=== PATIENT | female | born 1985 | race Caucasian/White ===

== ENCOUNTER 2017-06-01 15:51 | Emergency (ER) | payer MEDICAID, SELFPAY ==
[2017-06-01 16:00] VITALS: BP 141/74; PULSE 108; RESP 20; TEMP 36.8; O2SAT 100; BMI 19.7
[2017-06-01 16:05] VITALS: O2SAT 100
--- NOTE | 2017-06-01 16:15 | EKG12_ITS ---
Test Reason : SOB Blood Pressure : / mmHG Vent. Rate : 098 BPM Atrial Rate : 098 BPM P-R Int : 124 ms QRS Dur : 080 ms QT Int : 350 ms P-R-T Axes : 063 075 046 degrees QTc Int : 446 ms Normal sinus rhythm with sinus arrhythmia Nonspecific ST abnormality Abnormal ECG Confirmed by CHEO VARGAS ([id number]), art editor GEENA MCDONALD ([id number]) on 06/06/2017 2:44:45 PM Referred By: BECKA Confirmed By:CHEO VARGAS
--- NOTE | 2017-06-01 16:15 | RAD_ITS ---
STUDY: X-RAY CHEST REASON FOR EXAM: Female, 32 years old. SHORT OF BREATH TECHNIQUE: Single AP portable view of the chest. COMPARISON: None. FINDINGS: The lungs are clear and expanded. There is no demonstrated pleural abnormality. Normal size heart. Normal mediastinum and chinyere. Normal visualized pulmonary arteries. Normal visualized aortic arch and descending thoracic aorta. Normal visualized thoracic spine. Normal visualized ribs, clavicles, and shoulders. There is no demonstrated abnormality of the visualized soft tissue structures of the upper abdomen. RAD/Chest 1 View (Portable) IMPRESSION: Normal x-ray examination of the chest. Electronically Signed: Neil Maki MD at 16:37 EDT , Service support ,
[2017-06-01 16:18] VITALS: O2SAT 100
[2017-06-01] MEDS: LORazepam 2 MG/ML Syringe 0.5 MG IV (16:34)
[2017-06-01 16:41] LABS: International Normalized Ratio 1.2; Prothrombin Time (Protime)PT. 15.2 SECONDS (11.7-14.9)
[2017-06-01 16:46] LABS: Absolute Lymphocyte Count 4.22 X10^3/ul (0.83-4.51); Anion Gap 7 (5-15); BUN 7 mg/dL (7-18); BUN/Creat Ratio 8.5 RATIO (10-20); Basophil# 0.04 X10^3/uL; Basophil% 0.4 % (0-1); Calcium,Total 8.5 mg/dL (8.5-10.1); Chloride 109 mmol/L (98-107); Creatinine, Serum 0.82 mg/dL (0.55-1.02); EST Glomerular Filtration Rate 85 mL/min (>60); Eosinophil# 0.18 X10^3/uL; Eosinophils% 1.8 % (0-5); Est Glom Filt Rate - Afr Amer 103 mL/min (>60); Estimated Creatinine Clearance 75.47 ml/min; Glucose 132 mg/dL (74-106); Hematocrit 36.9 % (37-47); Hemoglobin 12.3 g/dl (12.0-15.0); Lymphocyte # 4.22 X10^3/ul (4.0); Lymphocyte % 42.3 % (19-41); Mean Corp Hgb Conc 33.3 g/gl (32-36); Mean Corpuscular Hgb 29.4 pg (27.0-32.0); Mean Corpuscular Volume 88.1 fL (81-99); Mean Platelet Vol. 12.6 fl (6.2-12.0); Monocyte# 0.49 X10^3/uL; Monocyte% 4.9 % (0-10); Neutrophil # 5.04 X10^3/uL (2.7-7.7); Neutrophil % 50.5 % (47-70); Platelet Count 180 K/mm3 (150-450); Potassium 3.3 mmol/L (3.5-5.1); Red Blood Count 4.19 M/mm3 (4.2-5.4); Sodium Level 138 mmol/L (136-145)
[2017-06-01 16:49] LABS: D-Dimer Quantitative (DVT/PE) 0.77 FEU/ug/m (0.27-0.49)
[2017-06-01 16:49] LABS: POSITIVE COUNT NO; POSITIVE DIFFERENTIAL NO; POSITIVE MORPHOLOGY NO
--- NOTE | 2017-06-01 16:50 | ED.RN ---
notified Dr. Teixeira of d-dimer 0.77
--- NOTE | 2017-06-01 17:10 | CT_ITS ---
STUDY: CTA CHEST REASON FOR EXAM: Female, 32 years old. HEMOPTYSIS, SOB, ELEVATED D-DIMER RADIATION DOSAGE (If Supplied By Facility): CTDIvol = ( 3.86 ) mGy, DLP = ( 163.32 ) mGycm TECHNIQUE: The examination was performed with the intravenous administration of 75 ml of Isovue 370 contrast material. Post-processing of the angiographic images was performed, with multiplanar reformation and 3D reconstruction. Individualized dose optimization techniques were used for this CT. COMPARISON: None. FINDINGS: Normal enhancement of the main pulmonary artery and right and left pulmonary arteries. Normal enhancement of the bilateral peripheral pulmonary arteries. There is no demonstrated pulmonary embolism. Normal thoracic aorta and visualized great vessels. There is no demonstrated aortic dissection. Normal heart and pericardium. Normal mediastinum. Normal hilar regions. Normal visualized trachea and bronchi. The lungs are well expanded. Normal pulmonary parenchyma. Normal pleura. Normal chest wall structures. Normal osseous structures. Normal visualized upper abdomen. CT/CTA Chest W/WO Contrast IMPRESSION: Normal CTA chest examination, without a demonstrated pulmonary embolism or arterial dissection. Electronically Signed: Neil Maki MD at 17:55 EDT , Service support ,
--- NOTE | 2017-06-01 17:19 | ED.DCSUM_ITS ---
- ER Visit Summary Date of Service: 06/01/17 Chief Complaint: Shortness of breath and coughing up blood History of Present Illness: The patient is a 32 F history of intermittent tachycardia and right-sided cerebral palsy. Patient never had a DVT or PE. She is currently on a generic control pill. Denies any recent travel, surgery, immobilization or hospitalization. Denies any leg pain or swelling. Denies any chest pain and no pleuritic chest pain. Says she was cutting grass started getting short of breath and started coughing up blood. She denies fever. Patient states prior to this occurring while cutting the grass she was feeling fine. No prior history of any like this before. Physical Examination: Well-appearing young female. Vital signs are stable. Her pulse ox is 100% on room air no signs of hypoxia. She is mildly tachycardic 108. She does not look septic or toxic. H EENT exam unremarkable. Neck nontender no lymphadenopathy trachea midline. Lungs clear to auscultation bilaterally. Heart tachycardic rate approximately 118 no murmur. Chest wall nontender. Abdomen soft nontender. Normal bowel sounds no peritoneal signs. She is moving all 4 extremity's. Neurovascular intact. Calves are nontender without edema or cords. Back exam normal. Skin exam normal. No petechiae, purpura or bruising. No rashes. Neurologically she is awake alert with no focal motor deficits. She is anxious. Test Results: EKG shows a sinus rhythm rate of 98 with no acute signs of IN or ischemia. No S1 every 3 T3. No signs of ischemia or dysrhythmia. CBC normal. White count of 10. Hemoglobin 12. Electrolytes showed mild hypokalemia at 3.3. Otherwise unremarkable with a normal creatinine and gap. PT/INR normal. D-dimer slightly elevated at 0.77. Chest x-ray read as normal both by myself the radiologist. Due to the patient's complaint of shortness of breath and hemoptysis and elevated d-dimer a CT of the chest to be obtained. CT of the chest shows no acute abnormality. Read by the radiologist reviewed by me. No signs of clot or dissection. Emergency Department Course and Treatment: Multiple repeat exams patient is doing well at 1900. Long discussion with her and her family. She will be discharged to home. Treatment Plan: Return if feeling worse. Disposition: Discharge Impression: Hemoptysis of uncertain etiology Anxiety This note was generated with [employer] dictation software. It may contain incorrect words, spelling, and punctuation that were not noted in review of the chart prior to signing ED Disposition - Plan for ED Patient: Chief Complaint: Shortness of Breath Referrals: Yoandy Porras MD [Primary Care Provider] -
[2017-06-01 18:41] VITALS: PULSE 94; RESP 18; O2SAT 99
--- NOTE | 2017-06-01 19:00 | ED.DEP ---
ED Disposition - Plan for ED Patient: Disposition: Home or Assisted Living Chief Complaint: Shortness of Breath Instructions: ED Dyspnea Shortness of Breath Referrals: Yoandy Porras MD [Primary Care Provider] - 3-5 Days if not improving Additional Instructions: All your tests tonight were normal. Your CAT scan looked good. There is no signs of blood clot or any other abnormality that would cause her to cough up blood. Normal On follow-up your primary care physician if not feeling better.
[2017-06-01 19:09] VITALS: BP 127/80; PULSE 96; RESP 18; O2SAT 100
== END 2017-06-01 19:18 | disposition home or self-care (01) ==
PROVIDERS: Emergency Provider Emergency Medicine; Family Provider Family Medicine; PCP Family Medicine
DX: R04.2 Hemoptysis (principal); F41.9 Anxiety disorder, unspecified; E87.6 Hypokalemia; R79.89 Other specified abnormal findings of blood chemistry; G80.8 Other cerebral palsy; Z79.3 Long term (current) use of hormonal contraceptives; Z79.899 Other long term (current) drug therapy
CPT/HCPCS: 71045; 71275; 80048; 85025; 85379; 85610; 93005; 96361; 96374; 99285; J7030; Q9967; A4216

== ENCOUNTER → 2017-07-20 17:41 | Outpatient (CLI) | payer MEDICAID, SELFPAY ==
[2017-07-20 19:47] LABS: Chlamydia Trachomatis by PCR Negative (Negative); Neisserai gonorrhoeae by PCR Negative (Negative); Probe Check PASS; Sample Adequacy Control PASS; Specimen Processing Control PASS
== END ==
PROVIDERS: Visit Provider Nurse Practitioner Women's Health
DX: Z11.3 Encounter for screening for infections with a predominantly sexual mode of transmission (principal)
CPT/HCPCS: 87491; 87591

== ENCOUNTER → 2017-07-28 15:32 | Outpatient (CLI) | payer MEDICAID, SELFPAY ==
--- NOTE | 2017-07-28 15:34 | US_ITS ---
STUDY: ULTRASOUND OF THE FEMALE PELVIS - COMPLETE REASON FOR EXAM: Female, 32 years old. Pelvic pain. LMP: Unknown. TECHNIQUE: Transabdominal and Transvaginal. TECHNICAL QUALITY: Adequate. COMPARISON: None. FINDINGS: The uterus is retroflexed and is in a midline position. The uterus measures 6.6 x 5.5 x 3.5 cm. Normal uterine cervix. The endometrium measures 7 mm in thickness, and is hyperechoic. There is no demonstrated endometrial mass. There is no demonstrated myometrial mass. I.U.D. - The patient does not have an I.U.D. The right ovary is visualized. The right ovary measures 3.1 x 1.8 x 1.1 cm. There is 0.5 cm follicle. There is no visualized right adnexal mass or complex lesion. There is normal arterial and normal venous vascularity. The left ovary is visualized. The left ovary measures 3.5 x 2.2 x 2.1 cm. There is 1.0 cm follicle There is no visualized left adnexal mass or complex lesion. There is normal arterial and normal venous vascularity. There is mild fluid in the cul-de-sac. The pre void volume of the bladder was 443 ml. The post void volume of the bladder was 0 ml. US/Transvaginal Non- IMPRESSION: Normal female pelvis. Small follicles. Mild free fluid. Electronically Signed: Pankaj Fontana MD at 9:56 EDT , Service support ,
--- NOTE | 2017-07-28 15:34 | US_ITS ---
STUDY: ULTRASOUND OF THE FEMALE PELVIS - COMPLETE REASON FOR EXAM: Female, 32 years old. Pelvic pain. LMP: Unknown. TECHNIQUE: Transabdominal and Transvaginal. TECHNICAL QUALITY: Adequate. COMPARISON: None. FINDINGS: The uterus is retroflexed and is in a midline position. The uterus measures 6.6 x 5.5 x 3.5 cm. Normal uterine cervix. The endometrium measures 7 mm in thickness, and is hyperechoic. There is no demonstrated endometrial mass. There is no demonstrated myometrial mass. I.U.D. - The patient does not have an I.U.D. The right ovary is visualized. The right ovary measures 3.1 x 1.8 x 1.1 cm. There is 0.5 cm follicle. There is no visualized right adnexal mass or complex lesion. There is normal arterial and normal venous vascularity. The left ovary is visualized. The left ovary measures 3.5 x 2.2 x 2.1 cm. There is 1.0 cm follicle There is no visualized left adnexal mass or complex lesion. There is normal arterial and normal venous vascularity. There is mild fluid in the cul-de-sac. The pre void volume of the bladder was 443 ml. The post void volume of the bladder was 0 ml. US/Pelvic (Non ) IMPRESSION: Normal female pelvis. Small follicles. Mild free fluid. Electronically Signed: Pankaj Fontana MD at 9:56 EDT , Service support ,
== END ==
PROVIDERS: Family Provider Family Medicine; PCP Family Medicine; Visit Provider Nurse Practitioner Women's Health
DX: R10.2 Pelvic and perineal pain (principal)
CPT/HCPCS: 76830; 76856; 93976

== ENCOUNTER 2017-12-11 13:13 | Emergency (ER) | payer MEDICAID, SELFPAY ==
[2017-12-11] VITALS (7 sets, daily range): BP systolic 106–128; BP diastolic 63–84; PULSE 85–127; RESP 11–18; TEMP 36.6; O2SAT 98–100; BMI 20.5
--- NOTE | 2017-12-11 13:26 | EKG12_ITS ---
Test Reason : TACHY Blood Pressure : / mmHG Vent. Rate : 111 BPM Atrial Rate : 117 BPM P-R Int : 152 ms QRS Dur : 074 ms QT Int : 426 ms P-R-T Axes : 082 081 062 degrees QTc Int : 579 ms Sinus tachycardia Nonspecific ST and T wave abnormality Prolonged QT Abnormal ECG Confirmed by ANTHONY SIMPSON, JAKE ([id number]), deputy editor in chief GEENA MCDONALD ([id number]) on 12/14/2017 3:36:39 PM Referred By: LORELEI Confirmed By:JAKE CRUZ MD
--- NOTE | 2017-12-11 13:35 | RAD_ITS ---
STUDY: X-RAY CHEST REASON FOR EXAM: Female, 32 years old. Tachycardia. TECHNIQUE: Single AP portable view of the chest. COMPARISON: Comparison is made with prior study dated June 01, 2017. FINDINGS: EKG electrodes are seen. Hyperinflation. The lungs are clear. There is no demonstrated pleural abnormality. Normal size heart. Normal mediastinum and chinyere. Normal visualized pulmonary arteries. Normal visualized aortic arch and descending thoracic aorta. Normal visualized thoracic spine. Normal visualized ribs, clavicles, and shoulders. There is no demonstrated abnormality of the visualized soft tissue structures of the upper abdomen. RAD/Chest 1 View (Portable) IMPRESSION: Hyperinflation. The lungs are clear. Electronically Signed: Miguel Angel Guerrero MD at 14:00 EST Tel [phone], Service support ,
[2017-12-11 14:11] LABS: Absolute Lymphocyte Count 3.52 X10^3/ul (0.83-4.51); Absolute Neutrophil Count 7.1 X10^3/uL (2.0-7.7); Basophil# 0.03 X10^3/uL; Basophil% 0.3 % (0-1); Eosinophil# 0.09 X10^3/uL; Eosinophils% 0.8 % (0-5); Hematocrit 39.8 % (37-47); Hemoglobin 13.3 g/dl (12.0-15.0); Lymphocyte # 3.52 X10^3/ul (4.0); Lymphocyte % 30.9 % (19-41); Mean Corp Hgb Conc 33.4 g/gl (32-36); Mean Corpuscular Hgb 28.9 pg (27.0-32.0); Mean Corpuscular Volume 86.3 fL (81-99); Mean Platelet Vol. 12.4 fl (6.2-12.0); Monocyte# 0.61 X10^3/uL; Monocyte% 5.4 % (0-10); Neutrophil # 7.13 X10^3/uL (2.7-7.7); Neutrophil % 62.5 % (47-70); POSITIVE COUNT NO; POSITIVE DIFFERENTIAL NO; POSITIVE MORPHOLOGY NO; Platelet Count 256 K/mm3 (150-450); RBC Distribution Width CV 12.9 % (11.6-14.6); RBC Distribution Width SD 40.2 fl (35.1-43.9); Red Blood Count 4.61 M/mm3 (4.2-5.4); White Blood Count 11.4 K/mm3 (4.4-11.0)
[2017-12-11 14:16] LABS: D-Dimer Quantitative (DVT/PE) 0.43 FEU/ug/m (0.27-0.49)
[2017-12-11 14:17] LABS: Anion Gap 9 (5-15); BUN 8 mg/dL (7-18); BUN/Creat Ratio 9.2 RATIO (10-20); Chloride 111 mmol/L (98-107); Creatinine, Serum 0.87 mg/dL (0.55-1.02); EST Glomerular Filtration Rate 80 mL/min (>60); Est Glom Filt Rate - Afr Amer 97 mL/min (>60); Estimated Creatinine Clearance 72.74 ml/min; Glucose 106 mg/dL (74-106); Potassium 3.5 mmol/L (3.5-5.1); Sodium Level 141 mmol/L (136-145)
[2017-12-11 14:26] LABS: Thyroid Stim Hormone (TSH) 1.87 uIU/mL (0.358-3.74)
--- NOTE | 2017-12-11 16:03 | ED.VISSUMM ---
- ER Visit Summary Date of Service: 12/11/17 Chief Complaint: [Tachycardia] History of Present Illness: The patient is a 32 F [presents the emergency department complaint of tachycardia and symptoms that she has had for months but progressively worsening over the last 2 weeks. Patient was being seen at physical therapy today and they initially noted that her resting heart rate was a little over 100. Patient then started complaining of feeling like her heart was racing and they rechecked her heart rate and it was over 150. Patient was sent to the ER for evaluation. Patient states she has had episodes like this for quite some time and typically seems to be brought on with standing and walking where she feels like her heart is pounding. Patient at times will have pain into her neck and head. She has not had any syncopal episodes. Patient states that she has seen a neurologist for this and had a tilt table test that showed tachycardia but nothing else significant. Patient states she has had blood work including thyroid studies which have been normal. She denies recent travel or surgery. She denies family history of sudden cardiac .] Physical Examination: [HEENT-PERRLA, EOMI. Cranial nerves II through XII grossly intact. TMs clear. Mucous membranes moist. No adenopathy. Cardiovascular-regular and mildly tachycardic with a rate in the low 100s. No murmurs auscultated. No rubs or clicks noted. Lungs-clear to auscultation, chest wall stable without crepitus or subcu emphysema Abdomen-normoactive bowel sounds, soft, nontender, no rebound or rigidity, no peritoneal signs. Extremities-intact ?4, normal range of motion, normal pulses, atraumatic] Test Results: [Patient had an EKG on arrival that showed a sinus tachycardia with a ventricular rate of 111 bpm with some nonspecific ST changes and a slightly prolonged QT. CBC with differential obtained was unremarkable. Chemistries unremarkable. Troponin was less than 0.015. D-dimer was normal 0.43. TSH was normal 1.87. Magnesium was 2.0. Chest x-ray showed hyperinflation.] Emergency Department Course and Treatment: [I did discuss case with cardiology who asked the patient follow-up with her primary care physician. I spoke with Dr. Deras who was covering for Dr. Porras who asked that I start patient on metoprolol 25 mg once a day. They will follow-up with her in the office.] Treatment Plan: [Patient will be started on metoprolol and follow-up with primary care physician] Disposition: [Discharged home in stable condition] Impression: [Tachycardia Palpitations] This note was generated with [employer] dictation software. It may contain incorrect words, spelling, and punctuation that were not noted in review of the chart prior to signing ED Disposition - Plan for ED Patient: Chief Complaint: Palpitations Referrals: Yoandy Porras MD [Primary Care Provider] -
--- NOTE | 2017-12-11 16:07 | ED.DCSUM_ITS ---
- ER Visit Summary Date of Service: 12/11/17 Chief Complaint: [Tachycardia] History of Present Illness: The patient is a 32 F [presents the emergency department complaint of tachycardia and symptoms that she has had for months but progressively worsening over the last 2 weeks. Patient was being seen at [facility] today and they initially noted that her resting heart rate was a little over 100. Patient then started complaining of feeling like her heart was racing and they rechecked her heart rate and it was over 150. Patient was sent to the ER for evaluation. Patient states she has had episodes like this for quite some time and typically seems to be brought on with standing and walking where she feels like her heart is pounding. Patient at times will have pain into her neck and head. She has not had any syncopal episodes. Patient states that she has seen a neurologist for this and had a tilt table test that showed tachycardia but nothing else significant. Patient states she has had blood work including thyroid studies which have been normal. She denies recent travel or surgery. She denies family history of sudden cardiac .] Physical Examination: [HEENT-PERRLA, EOMI. Cranial nerves II through XII grossly intact. TMs clear. Mucous membranes moist. No adenopathy. Cardiovascular-regular and mildly tachycardic with a rate in the low 100s. No murmurs auscultated. No rubs or clicks noted. Lungs-clear to auscultation, chest wall stable without crepitus or subcu emphysema Abdomen-normoactive bowel sounds, soft, nontender, no rebound or rigidity, no peritoneal signs. Extremities-intact ?4, normal range of motion, normal pulses, atraumatic] Test Results: [Patient had an EKG on arrival that showed a sinus tachycardia with a ventricular rate of 111 bpm with some nonspecific ST changes and a slightly prolonged QT. CBC with differential obtained was unremarkable. Chemistries unremarkable. Troponin was less than 0.015. D-dimer was normal 0.43. TSH was normal 1.87. Magnesium was 2.0. Chest x-ray showed hyperi nflation.] Emergency Department Course and Treatment: [I did discuss case with cardiology who asked the patient follow-up with her primary care physician. I spoke with Dr. Deras who was covering for Dr. Porras who asked that I start patient on metoprolol 25 mg once a day. They will follow-up with her in the office.] Treatment Plan: [Patient will be started on metoprolol and follow-up with primary care physician] Disposition: [Discharged home in stable condition] Impression: [Tachycardia Palpitations] This note was generated with [employer] dictation software. It may contain incorrect words, spelling, and punctuation that were not noted in review of the chart prior to signing ED Disposition - Plan for ED Patient: Chief Complaint: Palpitations Referrals: Yoandy Porras MD [Primary Care Provider] -
--- NOTE | 2017-12-11 16:07 | ED.DEP ---
ED Disposition - Plan for ED Patient: Chief Complaint: Palpitations Instructions: ED Palpitations Prescriptions: Metoprolol Succinate 25 mg PO DAILY #30 tab.er.24h Referrals: Yoandy Porras MD [Primary Care Provider] - 5-7 Days
--- NOTE | 2017-12-11 16:28 | ED.DEP ---
ED Disposition - Plan for ED Patient: Chief Complaint: Palpitations Instructions: ED Palpitations Prescriptions: Metoprolol Succinate 25 mg PO DAILY #30 tab.er.24h Lorazepam [Ativan] 1 mg PO TID PRN #10 tab PRN Reason: Anxiety Referrals: Yoandy Porras MD [Primary Care Provider] - 5-7 Days
[2017-12-11] MEDS: Metoprolol(XL)Succ 25 MG Tablet PO (16:31)
== END 2017-12-11 16:34 | disposition home or self-care (01) ==
LOC: ED 14:08
PROVIDERS: Emergency Provider Emergency Medicine; Family Provider Family Medicine; PCP Family Medicine
DX: R00.0 Tachycardia, unspecified (principal); R00.2 Palpitations; R11.0 Nausea; R51 Headache; M19.90 Unspecified osteoarthritis, unspecified site; F41.9 Anxiety disorder, unspecified; Z79.899 Other long term (current) drug therapy
CPT/HCPCS: 71045; 80048; 83735; 84443; 84484; 85025; 85379; 93005; 99285; J7030; A4216

== ENCOUNTER → 2019-12-16 | Outpatient (CLI) | payer MEDICAID, SELFPAY ==
[2019-12-23 04:25] LABS: HPV APTIMA, High Risk Negative (Negative)
== END | disposition home or self-care (01) ==
LOC: LABSPEC 13:51
PROVIDERS: PCP Family Medicine; Referring Provider Nurse Practitioner Women's Health; Visit Provider Nurse Practitioner Women's Health
DX: Z12.4 Encounter for screening for malignant neoplasm of cervix (principal)
CPT/HCPCS: 87624; 88175; G0145

== ENCOUNTER → 2019-12-18 14:11 | Outpatient (CLI) | payer MEDICAID, SELFPAY ==
--- NOTE | 2019-12-18 14:13 | US_ITS ---
STUDY: ULTRASOUND OF THE FEMALE PELVIS - LIMITED REASON FOR EXAM: Female, 34 years old pelvic pain for 6 months worsening over last month. History of ovarian cysts. Nausea and vomiting. Belching. TECHNIQUE: Transabdominal and Transvaginal TECHNICAL QUALITY: Adequate. COMPARISON: 07/28/2017. FINDINGS: The uterus is retroverted and retroflexed and is in a midline position. The uterus measures 7.4 x 3.6 x 5.3 cm. Normal uterine cervix. The endometrium measures 5.4 mm in thickness, and is hyperechoic. There is no demonstrated endometrial mass. There is a 1.7 x 2.2 x 1.4 cm subserosal fibroid posterior fundal wall. The right ovary measures 3.9 x 2.4 x 1.4 cm. There are multiple follicles of the right ovary. There is a questionable hyperechoic nodule measuring 1.3 x 0.8 x 1.2 cm. There is no visualized right adnexal mass or complex lesion. There is normal arterial and normal venous vascularity. The left ovary measures 3.4 x 2.0 x 1.1 cm. There are multiple follicles of the left ovary without a dominant cyst. There is no visualized left adnexal mass or complex lesion. There is normal arterial and normal venous vascularity. Minimal fluid in posterior cul-de-sac. The urinary bladder has a prevoid volume of 366 mm and is grossly unremarkable US/Transvaginal Non- IMPRESSION: 1. Retroverted/retroflexed uterus. There is a small fibroid in the posterior uterine wall. 2. Question hyperechoic mass in the right ovary not previously seen. This may represent a hemorrhagic cyst or solid tumor.. Follow-up recommended. 3. Minimal free fluid in posterior cul-de-sac thought to be physiologic. Electronically Signed: Braulio Burgess DO at 18:24 EST Tel [phone], Service support ,
--- NOTE | 2019-12-18 14:13 | US_ITS ---
STUDY: ULTRASOUND OF THE FEMALE PELVIS - LIMITED REASON FOR EXAM: Female, 34 years old pelvic pain for 6 months worsening over last month. History of ovarian cysts. Nausea and vomiting. Belching. TECHNIQUE: Transabdominal and Transvaginal TECHNICAL QUALITY: Adequate. COMPARISON: 07/28/2017. FINDINGS: The uterus is retroverted and retroflexed and is in a midline position. The uterus measures 7.4 x 3.6 x 5.3 cm. Normal uterine cervix. The endometrium measures 5.4 mm in thickness, and is hyperechoic. There is no demonstrated endometrial mass. There is a 1.7 x 2.2 x 1.4 cm subserosal fibroid posterior fundal wall. The right ovary measures 3.9 x 2.4 x 1.4 cm. There are multiple follicles of the right ovary. There is a questionable hyperechoic nodule measuring 1.3 x 0.8 x 1.2 cm. There is no visualized right adnexal mass or complex lesion. There is normal arterial and normal venous vascularity. The left ovary measures 3.4 x 2.0 x 1.1 cm. There are multiple follicles of the left ovary without a dominant cyst. There is no visualized left adnexal mass or complex lesion. There is normal arterial and normal venous vascularity. Minimal fluid in posterior cul-de-sac. The urinary bladder has a prevoid volume of 366 mm and is grossly unremarkable US/Pelvic (Non ) IMPRESSION: 1. Retroverted/retroflexed uterus. There is a small fibroid in the posterior uterine wall. 2. Question hyperechoic mass in the right ovary not previously seen. This may represent a hemorrhagic cyst or solid tumor.. Follow-up recommended. 3. Minimal free fluid in posterior cul-de-sac thought to be physiologic. Electronically Signed: Braulio Burgess DO at 18:24 EST Tel [phone], Service support ,
== END ==
PROVIDERS: PCP Family Medicine; Referring Provider Nurse Practitioner Women's Health; Visit Provider Nurse Practitioner Women's Health
DX: N93.9 Abnormal uterine and vaginal bleeding, unspecified (principal); R10.2 Pelvic and perineal pain
CPT/HCPCS: 76830; 76856

== ENCOUNTER → 2020-01-10 13:55 | Outpatient (CLI) | payer MEDICAID, SELFPAY ==
--- NOTE | 2020-01-10 13:57 | US_ITS ---
STUDY: ULTRASOUND OF THE FEMALE PELVIS - LIMITED REASON FOR EXAM: Female, 34 years old PELVIC PAIN , F/U RTO TECHNIQUE: Transabdominal and Transvaginal TECHNICAL QUALITY: Adequate. COMPARISON: Comparison is made with prior sonogram dated 12/18/2019. FINDINGS: The uterus is retroflexed and is in a midline position. The uterus measures 7 x 4.6 x 3. cm. Normal uterine cervix. The endometrium measures 9.9 mm in thickness, and is hyperechoic. There is no demonstrated endometrial mass. Stable 2 cm x 2.1 cm x 1.6 cm fibroid in the posterior fundal wall. The right ovary measures 4.1 cm x 2.6 x 2 cm. There is a 2.4 cm x 1.9 cm x 2.2 cm complex cyst in the right ovary. There is no visualized right adnexal mass or complex lesion. There is normal arterial and normal venous vascularity. The left ovary measures 1.9 cm x 1.4 cm x 1.5 cm. There is no left ovarian cyst or ovarian mass. There is no visualized left adnexal mass or complex lesion. There is normal arterial and normal venous vascularity. There is no fluid in the cul-de-sac. US/Pelvic (Non ) IMPRESSION: Stable small posterior fundal fibroid. 2.4 cm x 1.9 cm x 2.2 cm complex cyst in the right orbit. This is increased slightly in size has compared to prior study. Electronically Signed: Miguel Angel Guerrero, at 15:39 EST , Service support ,
--- NOTE | 2020-01-10 13:57 | US_ITS ---
STUDY: ULTRASOUND OF THE FEMALE PELVIS - LIMITED REASON FOR EXAM: Female, 34 years old PELVIC PAIN , F/U RTO TECHNIQUE: Transabdominal and Transvaginal TECHNICAL QUALITY: Adequate. COMPARISON: Comparison is made with prior sonogram dated 12/18/2019. FINDINGS: The uterus is retroflexed and is in a midline position. The uterus measures 7 x 4.6 x 3. cm. Normal uterine cervix. The endometrium measures 9.9 mm in thickness, and is hyperechoic. There is no demonstrated endometrial mass. Stable 2 cm x 2.1 cm x 1.6 cm fibroid in the posterior fundal wall. The right ovary measures 4.1 cm x 2.6 x 2 cm. There is a 2.4 cm x 1.9 cm x 2.2 cm complex cyst in the right ovary. There is no visualized right adnexal mass or complex lesion. There is normal arterial and normal venous vascularity. The left ovary measures 1.9 cm x 1.4 cm x 1.5 cm. There is no left ovarian cyst or ovarian mass. There is no visualized left adnexal mass or complex lesion. There is normal arterial and normal venous vascularity. There is no fluid in the cul-de-sac. US/Transvaginal Non- IMPRESSION: Stable small posterior fundal fibroid. 2.4 cm x 1.9 cm x 2.2 cm complex cyst in the right orbit. This is increased slightly in size has compared to prior study. Electronically Signed: Miguel Angel Guerrero, at 15:39 EST , Service support ,
== END ==
PROVIDERS: PCP Family Medicine; Referring Provider Nurse Practitioner Women's Health; Visit Provider Nurse Practitioner Women's Health
DX: R10.2 Pelvic and perineal pain (principal)
CPT/HCPCS: 76830; 76856; 93976

== ENCOUNTER 2020-01-17 11:47 | Emergency (ER) | payer MEDICAID, SELFPAY ==
[2020-01-17 10:19] VITALS: BMI 19.6
[2020-01-17 11:47] VITALS: BP 132/70; PULSE 88; RESP 18; TEMP 36.9; O2SAT 100; BMI 19.3
--- NOTE | 2020-01-17 11:55 | US_ITS ---
STUDY: ULTRASOUND OF THE FEMALE PELVIS - COMPLETE REASON FOR EXAM: Female, 34 years old. RLQ PAIN OVARIAN CYST LMP: 12/06/2019. TECHNIQUE: Transvaginal TECHNICAL QUALITY: Adequate. COMPARISON: None. FINDINGS: The uterus is retroflexed and is tilted to the left side of the pelvis. The uterus measures 8 cm x 4.7 cm x 3.8 cm. Normal uterine cervix. The endometrium measures 9.8 mm in thickness, and is hyperechoic. There is no demonstrated endometrial mass. 2 uterine fibroids are seen. The larger measures 1.9 cm x 2.4 cm x 1.5 cm I.U.D. - The patient does not have an I.U.D. The right ovary is visualized. The right ovary measures 4 cm x 2.5 cm x 1.8 cm. There is a 1.9 cm x 1.4 cm x 1.4 cm complex cyst in the right ovary. There is no visualized right adnexal mass or complex lesion. There is normal arterial and normal venous vascularity. The left ovary is visualized. The left ovary measures 2.3 cm x 2.3 cm x 1.2 cm. There is no left ovarian cyst or ovarian mass. There is no visualized left adnexal mass or complex lesion. There is normal arterial and normal venous vascularity. There is no fluid in the cul-de-sac. US/Transvaginal Non- IMPRESSION: Fibroid uterus. 1.9 cm x 1.4 cm x 1.4 cm complex right ovarian cyst. Electronically Signed: Miguel Angel Guerrero, at 13:39 EST , Service support ,
--- NOTE | 2020-01-17 12:01 | ED.VIS.GEN ---
History of Present Illness Chief Complaint: Abd Pain Informant: Patient Narrative: Patient is a 34-year-old female with a history of IBS who presents to the emergency department after being sent in by her RADIOLOGIC ELECTRONIC SPECIALIST for right lower quadrant abdominal pain. She states that she has chronic issues with this but recently got worse over the past 6 weeks. She has a known cyst on the right side. They are planning to potentially do surgery if it is a cyst still causing her symptoms. They wanted her to have an ultrasound and CT scan if necessary. Patient currently rates her pain as a 7 out of 10. No known aggravating or relieving factors. She has been nauseous and vomiting occasionally with the pain. She states that she has lost weight over the past 6 weeks due to the nausea. No previous abdominal surgeries. She denies any change in her bowel movements. She has had some vaginal discharge and had a pelvic exam performed by her RADIOLOGIC ELECTRONIC SPECIALIST today. She denies any urinary symptoms. No fevers but has had chills. The pain does radiate to her right flank and also down her right leg. Past Medical History - Allergies and Home Meds Allergies/Adverse Reactions: Allergies amoxicillin [From Augmentin] Allergy (Verified 01/17/20 10:20) Hives clavulanic acid [From Augmentin] Allergy (Verified 01/17/20 10:20) Hives Primary Care Physician: Katheryn Feng MD [STAFF PHYSICIAN] - As soon as possible Yoandy Porras MD [Primary Care Provider] - Prior records reviewed: Yes Smoking Status: Never smoker Review of Systems All systems negative except as indicated General: Reports: Chills. Denies: Fever, Sweats Eyes: Denies: Visual changes - bilaterally, Diplopia ENT: Denies: Rhinorrhea, Sore throat Cardiovascular: Denies: Chest pain, Palpitations Respiratory: Denies: Dyspnea, Cough, Dyspnea on exertion Gastrointestinal: Reports: Abdominal pain, Nausea, Vomiting. Denies: Diarrhea, Melena, Hematochezia Genitourinary: Denies: Dysuria, Hematuria, Frequency Musculoskeletal: Reports: Back pain. Denies: Extremity Pain Skin: Denies: Rash, Wounds Neurological: Denies: Headache, Weakness, Numbness Physical Exam Vital Signs/Narrative: Vital Signs Temp Pulse Resp BP Pulse Ox 01/17/20 11:47 98.4 F 88 18 132/70 H 100 Inital Vital Signs reviewed: Yes General: Well nourished, Well developed, No Acute Distress Head: Normocephalic, Atraumatic Eyes: Perrl, EOMI ENT: Moist mucous membranes, No rhinorrhea Neck: Supple, Nontender Cardiovascular: Regular rate, Regular rhythm, No murmurs Respiratory: No distress, CTA bilaterally, Chest nontender Abdomen: Soft, Nondistended, Normal bowel sounds, Tender - Right lower quadrant, Psoas sign. Negative for: Guarding, Rebound tenderness Back: Nontender, Normal Inspection Extremities: Nontender, No edema Skin: Normal color, No rash Neurological: Alert, Oriented x3, Normal Strength, Normal Sensation Psychological: Normal affect, Normal Mood Diagnostic/Tx/Re-eval - Medical Decision Making Patient presents to the ED for right lower quadrant abdominal pain. This is an acute on chronic issue. She was sent in by her RADIOLOGIC ELECTRONIC SPECIALIST. Upon arrival to the ED vital signs within normal limits. She does not appear in acute distress. She does have tenderness in the right lower quadrant on exam. Will check basic lab work and perform ultrasound at the OBs request. Lab work did not reveal any significant acute abnormality. No leukocytosis. Urine does not show any evidence of infection. Ultrasound was significant for complex right ovarian cyst. She also has uterine fibroids. No evidence of torsion. I did call her RADIOLOGIC ELECTRONIC SPECIALIST. Despite these findings I still want to do a CT scan as they will likely perform surgery on her. CT scan was performed which did not reveal any evidence of appendicitis. Will recommend symptomatic treatment in the meantime. Warning signs and symptoms for which to return to the emergency department are reviewed. She understands and is agreeable this plan. She is discharged home in stable condition. All questions answered. ED Disposition - Plan for ED Patient: Disposition: Home or Assisted Living Diagnosis: Right ovarian cyst, Abdominal pain, Uterine fibroid Instructions: ED Ovarian Cyst Prescriptions: Naproxen [Naprosyn] 500 mg PO BID PRN #20 tab Transmission Status: Received by [facility] Referrals: Yoandy Porras MD [Primary Care Provider] - Katheryn Feng MD [STAFF PHYSICIAN] - As soon as possible
--- NOTE | 2020-01-17 12:14 | ED.RN ---
pt to u/s prior to medication
[2020-01-17 12:20] LABS: Bacteria 0 SEEN /hpf (None Seen); Mucous, Urine 0 SEEN /hpf (<or=2+); Red Blood Cells-Urine 0 SEEN /hpf (0-5); White Blood Cells 0 SEEN /hpf (0-5)
[2020-01-17 12:23] LABS: Absolute Lymphocyte Count 3.11 X10^3/uL (0.83-4.51); Absolute Neutrophil Count 6.4 X10^3/uL (2.0-7.7); Basophil# 0.05 X10^3/uL; Basophil% 0.5 % (0-1); Eosinophil# 0.09 X10^3/uL; Eosinophils% 0.9 % (0-5); Hematocrit 42.6 % (37-47); Hemoglobin 14.1 g/dL (12.0-15.0); Lymphocyte # 3.11 X10^3/ul (4.0); Lymphocyte % 30.2 % (19-41); Mean Corp Hgb Conc 33.1 g/dL (32-36); Mean Corpuscular Hgb 28.7 pg (27.0-32.0); Mean Corpuscular Volume 86.8 fL (81-99); Monocyte# 0.65 X10^3/uL; Monocyte% 6.3 % (0-10); NRBC Flagged by Analyzer 0 % (0-5); Neutrophil # 6.35 X10^3/uL (2.7-7.7); Neutrophil % 61.7 % (47-70); Platelet Count 239 K/mm3 (150-450); RBC Distribution Width CV 13.2 % (11.6-14.6); RBC Distribution Width SD 41.6 fl (35.1-43.9); Red Blood Count 4.91 M/mm3 (4.2-5.4); White Blood Count 10.3 K/mm3 (4.4-11.0)
[2020-01-17 12:26] LABS: Color, Urine Yellow (Yellow); Glucose, Dipstick Normal (Normal); Ketone-Dipstick 15 mg/dl (Negative); Leukocyte Esterase-Dipstick Negative /ul (Negative); Nitrite-Dipstick Negative (Negative); Occult Blood-Urine Negative /ul (Negative); Protein-Dipstick Negative (Negative); Urine Bilirubin Dipstick Negative (Negative); Urine Clarity Sl. Cloudy (Clear); Urine Urobilinogen Normal (Normal)
[2020-01-17 12:33] LABS: Squamous Epithelial Cells - UA 0-5 SEEN /hpf (5-10)
[2020-01-17 12:34] LABS: Internal QC Validated? YES +Cl - CLEAR BKGD; Pregnancy, Urine Negative Negative
[2020-01-17 12:42] LABS: ALB/GLOB Ratio 1.3 RATIO (0.9-2.4); AST(SGOT) 12 U/L (15-37); Alanine Aminotransfer ALT/SGPT 20 U/L (13-56); Albumin, Serum 4.4 g/dL (3.2-5.0); Alkaline Phosphatase 63 U/L (45-117); Anion Gap 6 (5-15); BUN 10 mg/dL (7-18); BUN/Creat Ratio 13.1 RATIO (10-20); Calcium,Total 9.1 mg/dL (8.5-10.1); Chloride 109 mmol/L (98-107); Creatinine, Serum 0.76 mg/dL (0.55-1.02); EST Glomerular Filtration Rate 91 mL/min (>60); Est Glom Filt Rate - Afr Amer 110 mL/min (>60); Estimated Creatinine Clearance 78.42 ml/min; Globulin 3.5 g/dL (2.2-4.2); Glucose 86 mg/dL (74-106); Lipase 73 U/L (73-393); Potassium 3.6 mmol/L (3.5-5.1); Protein, Total 7.9 g/dL (6.4-8.2); Sodium Level 139 mmol/L (136-145)
[2020-01-17] MEDS: Ondansetron 4 MG/2 ML Vial IV (13:01)
[2020-01-17] MEDS: Ketorolac 15 MG/ML Vial IV (13:02)
--- NOTE | 2020-01-17 13:57 | CT_ITS ---
STUDY: CT ABDOMEN AND PELVIS WITH CONTRAST REASON FOR EXAM: Female, 34 years old. RLQ pain, appy vs ovarian cyst. RADIATION DOSAGE (If Supplied By Facility): CTDIvol = ( 7.73 ) mGy, DLP = ( 253.88 ) mGycm TECHNIQUE: Transaxial images were obtained from the dome of the diaphragm to the symphysis pubis without oral contrast. IV 100mL Isovue-300 was administered. Sagittal and coronal images were reconstructed. Individualized dose optimization techniques were used for this CT. COMPARISON: None. FINDINGS: The visualized lung bases are unremarkable. The visualized portions of the heart are within normal limits. Normal liver. Normal gallbladder and extrahepatic biliary system. Normal spleen. Normal pancreas. Normal bilateral adrenal glands. Normal right kidney. Normal left kidney. There is a small hiatal hernia. Normal small intestine. Normal colon. The appendix is visualized and appears normal. Normal abdominal aorta. Normal inferior vena cava. Normal retroperitoneum. Normal urinary bladder. There is a 1.2 cm dominant follicle in the right ovary. Small amount of fluid surrounding the right ovary. Normal abdominal wall. Normal osseous structures. CT/Abdomen/Pelvis W IV Cont ONLY IMPRESSION: Dominant follicle in the right ovary. Small amount of fluid seen surrounding the right ovary. Electronically Signed: Miguel Angel Guerrero, at 14:36 EST , Service support ,
[2020-01-17] MEDS: Morphine 4 MG/ML Syringe IV (14:16)
--- NOTE | 2020-01-17 14:46 | ED.RN ---
c/o pain unchanged after morphine, dr. cesar. given warm blankets to apply heatpressure to area.
[2020-01-17 15:30] VITALS: BP 128/70; PULSE 74; RESP 16; O2SAT 99
== END 2020-01-17 15:36 | disposition home or self-care (01) ==
PROVIDERS: Emergency Provider Emergency Medicine; PCP Family Medicine
DX: N83.201 Unspecified ovarian cyst, right side (principal); D25.9 Leiomyoma of uterus, unspecified; K58.9 Irritable bowel syndrome, unspecified
CPT/HCPCS: 74177; 76830; 80053; 81001; 81025; 83690; 85025; 93976; 96374; 96375; 99283; Q9967; A4216; J2405

== ENCOUNTER 2020-01-28 12:47 | Day surgery (SDC) | payer MEDICAID, SELFPAY ==
[2020-01-20 12:59] LABS: Hemoglobin 12.7 g/dL (12.0-15.0); Mean Corp Hgb Conc 32.6 g/dL (32-36); Mean Corpuscular Hgb 28.3 pg (27.0-32.0); Mean Corpuscular Volume 87.1 fL (81-99); Mean Platelet Vol. 12.4 fl (6.2-12.0); Platelet Count 238 K/mm3 (150-450); RBC Distribution Width CV 13.3 % (11.6-14.6); RBC Distribution Width SD 42.5 fl (35.1-43.9); Red Blood Count 4.48 M/mm3 (4.2-5.4); White Blood Count 6.1 K/mm3 (4.4-11.0)
[2020-01-28] VITALS (11 sets, daily range): BP systolic 86–106; BP diastolic 45–70; PULSE 75–102; RESP 14–18; TEMP 36–36.8; O2SAT 93–100; BMI 19.9
[2020-01-28 13:22] LABS: Internal QC Validated? YES +Cl - CLEAR BKGD; Pregnancy, Urine Negative Negative
[2020-01-28] MEDS: Lactated Ringers 1,000 ML 100 ML IV ×3 (13:40→16:15)
--- NOTE | 2020-01-28 13:58 | HP.PCM_ITS ---
- Problem List (1) Pelvic pain Status: Acute (2) Ovarian cyst Status: Acute History and Physical Date of Admission: 01/28/20 Intake Vital Signs 01/17/20 Height 5 ft 2 in 01/17/20 Weight: 107 lb 6 oz 01/17/20 BMI 19.6 01/17/20 BP 120/70 Intake Visit Reasons: Discuss options Supplies Packer Required: No Is patient in pain?: Yes Pain scale (1-10): 7 Allergies amoxicillin [From Augmentin] Allergy (Verified 01/17/20 10:20) Hives clavulanic acid [From Augmentin] Allergy (Verified 01/17/20 10:20) Hives Medications NK 01/17/20 [History Confirmed 01/17/20] Post menopausal: No Patient : No : No PFSH Medical History Depression with anxiety (Acute) Neuropathy (Chronic) Fibromyalgia (Chronic) Cerebral palsy (Chronic) Migraines (Acute) Moderate dysplasia of cervix (POLINA II) (Acute) Ovarian cyst (Acute) Surgical History (Resolved) H/O LEEP (Resolved) S/P dilation and curettage (Resolved) Family History Mother Ovarian cancer Hypertension Alcoholism Grandmother Hypertension Father Alcoholism CVA (cerebral vascular accident) Uncle Alcoholism Aunt CVA (cerebral vascular accident) Social History (Updated 01/17/20 @ 13:[address] 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 Reports has had multiple ovarian cysts in the past that have ruptured. Reports severe pain with sitting and standing. Reports severe pressure with standing for long periods of time. Reports feels throbbing pain. Reports pain radiates to her upper abdomen and sometimes radiates down her leg. Reports decreased appetite with associated weight loss. Pain started in upper abdomen back in March. Pressure started to be more severe in right lower quadrant a few months later. In November, pain became much more severe and felt consistent with when she had cysts previously. Started bleeding continuously in November. Was started on aygestin and had severe mood swings but bleeding stopped. Began bleeding as soon as she stopped aygestin. Started on cOCP and had migraines with aura. Pain has become increasingly severe over the past week. Denies association between severe pain and movement. Reports pain typically better in the mornings. Reports chills when pain severe. Denies fevers. Denies nausea and vomiting. Female Reproductive History Menopausal Symptoms: No night sweats Pregancy History 3 Elective abortions Hx Para 1 Spontaneous abortions Hx # Term Pregnancies Ectopic pregnancies Hx # Pregnancies Multiple births # of living children Past Pregnancies Del. Date Name GA/Weeks Outcome Route Bth Weight Infant Gen Labor Lgth Anesthesia Del [facility] Provider FOB 06/12/08 Cecilia 40 live - full term 6 lbs 14 oz Femal e 9 hours epidural [facility] Dr. Pierson ROS Const Constitutional: Reports chills, fatigue, poor appetite and weight loss; denies fever(s) or night sweats GI GI: Reports cramping; denies bloating, constipation, nausea or vomiting : Reports difficulty urinating, metrorrhagia and vaginal discharge; denies painful urination, blood in urine, urinary frequency, urinary hesitancy, urinary urgency, vaginal dryness, vaginal odor or vaginal itching Skin Skin/Breast: Reports hair loss and change in hair Exam Const General: cooperative, healthy appearing, comfortable, well developed, well groomed Nutritional Appearance: underweight Orientation: alert, awake, oriented x3 Neck Neck: normal visual inspection, full ROM Resp Effort & Inspection: normal respiratory effort, able to speak in complete sentences, symmetric chest movement Cardio Rate: regular rate GI Inspection: normal to inspection, non-distended, no incisions Palpation: soft, guarding (voluntary) in the RLQ, not rigid, tender in the RLQ and suprapubicly General: bladder normal to palpation External Female Exam: normal external appearance, normal appearance of the urethra, No gaping introitus, no tenderness externally, no external swelling, no lesions, no lacerations, No urethral discharge Urethra: normal appearance of the urethra Speculum Exam - Vagina: normal appearance of the vagina, normal vaginal discharge, abnormal vaginal discharge (scant thin white discharge), not erythematous, no lesions, No vaginal bleeding, no masses, no swelling, nontender Speculum Exam - Cervix: normal appearance of the cervix, no cervical discharge, no masses, nontender Bimanual Exam- Vagina & Uterus: normal bimanual exam, normal vaginal palpation, uterine size normal, bladder normal to palpation, uterine shape normal, No cervical tenderness, uterine mobility normal, uterine consistency normal, normal cervical palpation, uterus non-tender, no cervical motion tenderness Bimanual Exam- Adnexa, other: adnexae mobile, pelvic support normal, adnexal tenderness on the right, adnexal mass (fullness in right adnexa), cul-de-sac fullness Recto-Vaginal: cul-de-sac fullness Pelvic Support: normal OB/External & Speculum: No vaginal bleeding Speculum Exam: no vaginal bleeding Skin General: no rashes or lesions noted, elasticity normal, turgor normal Lesions: no lesions Rashes: no rashes Neuro General: alert, awake, oriented x3 Cranial Nerves: CN's II-XI intact bilaterally, PERRL, EOM intact bilaterally Cognition: normal cognition Speech: speech normal Gait: normal gait Extrem General: normal to inspection, full ROM, no pedal edema Psych Appearance: grossly normal Mental Status: mental status grossly normal Mood: congruent mood Affect: normal affect Speech and Movement: speech and movement normal Attitude: cooperative Thought Process: normal Thought Content: normal Assessment & Plan 1. Pelvic pain R10.2 Plan Presents with pelvic pain present for the last 2 months, but acutely worse over the past week. Patient appears uncomfortable in office and is constantly shifting position to become comfortable Has cyst on right ovary that did slightly increase in size on ultrasound 01/09 from 1.3x0.8x1.2cm to 2.4x1.9x2.2cm. Exam in office shows significant pain with voluntary guarding with pressure applied in right lower quadrant. On pelvic exam, fullness noted in right adnexa with significant tenderness in this region. No cervical motion tenderness. Discussed with patient that at this time, I am concerned for the possibility of ovarian torsion, but also need to rule out appendicitis. Patient sent to ER for evaluation. Discussed that if ultrasound today is negative for torsion, I feel that she would benefit from surgery as soon as possible due to her degree of pain. She reports significant pain on her right side that always occurs when she has a cyst with a history of multiple cysts on this side. Discussed alternative options including expectant management with pain control. Also discussed considering trial of depo provera to suppress future cyst formation. Discussed with patient that I feel that with the severity of her pain, it is indicated to perform laparoscopy to determine definitively if pain is related to ovarian cyst. Discussed that while her cyst is not overly large, her description of the pain is concerning for this as a possible etiology. Discussed cystectomy vs. oophorectomy for treatment of her cyst. As she always has cysts on the right side, would plan to remove her ovary at the time of surgery. Also discussed would recommend possible fulguration of endometriosis if any lesions noted. The nature of the procedure was discussed with the patient. Risks, benefits, indications, and alternatives to the procedure were discussed with the patient including bleeding, infection, and visceral or vascular injury. Agreeable to blood products if medically necessary. Discussed possibility of infection inside abdomen or at incision sites which could require outpatient or inpatient antibiotics. Discussed the possibility of injury to uterus, tubes, ovaries, bowel, and bladder. Aware that this could require intra-op consult to general surgery or urology. Also aware of the possibility of prolonged hospitalization or reoperation. Discussed possibility of need to convert to open to procedure. All questions were answered. Patient voices understanding and agrees to proceed. Patient sent to ER to rule out torsion. If she does not require emergent intervention, she will discuss surgery with her as I would recommend surgical intervention as soon as possible. 2. Family history of ovarian cancer Z80.41 Plan Patient's mother is currently extremely ill with ovarian cancer. Patient reports that she has completed childbearing and has no desire to maintain future fertility. Strongly regrets not having tubal ligation at time of her delivery. Discussed that I would recommend undergoing bilateral salpingectomy at the time of surgery to decrease chances of ovarian cancer in the future. Discussed that I feel that she should have this done at the time of surgery for management of her pain as there are risks incurred with surgery and it would not be reasonable to request that she wait 30 days after having tubal papers signed if she is already having a laparoscopy before this time. I feel that the surgical management of her cyst and her pain warrants intervention much sooner than 30 days from now and recommend that her surgery be scheduled as soon as feasible. UPDATE- I have seen the patient and performed any clinically relevant updates to the history and physical exam. Katheryn Feng MD
--- NOTE | 2020-01-28 14:02 | DCINST_ITS ---
Discharge Diet: No Restrictions, - - Increase fluid intake for 48 hours. Discharge Activity: Return to Normal Activity, May Drive - when you are no longer taking narcotic pain medications., May Shower, May Take a Tub Bath - in 7 days., - - Ambulate often the next week after surgery. Additional Activity Instructions:: Nothing in the vagina for the next 5 days. Call your doctor if your incision/area has: Continuous Slow Oozing, Sudden Increased Bleeding, Increased Pain/ Swelling, Increased Redness, Foul Smelling Discharge, Swelling at the incision site Call your doctor if you observe: Fever of 101 or Higher Allergies/Adverse Reactions: Allergies amoxicillin [From Augmentin] Allergy (Verified 01/28/20 13:17) Hives clavulanic acid [From Augmentin] Allergy (Verified 01/28/20 13:17) Hives Medications to take at Discharge naproxen 500 mg tablet 500 mg PO BID PRN #20 tab 01/20/20 Oxycodone [Oxyir] 5 mg PO Q6H PRN PRN 7 Days #15 tablet 01/28/20 The following prescriptions were given: Oxycodone [Oxyir] 5 mg PO Q6H PRN PRN 7 Days #15 tablet PRN Reason: Pain Score 6-10/10 Transmission Status: Sent to [facility] Primary Care Physician: Yoandy Porras MD [Primary Care Provider] - Test Results: Test results from this visit will be discussed in further detail at your follow- up appointment, if applicable.
--- NOTE | 2020-01-28 14:02 | PCM.OPRPT ---
Problem List (1) Pelvic pain Status: Acute (2) Ovarian cyst Status: Acute Report of Operation Date of Procedure: 01/28/20 Pre-Operative Diagnosis: Pelvic pain, ovarian cyst, undesired fertility, family history of ovarian cancer Post-Operative Diagnosis: Same, endometriosis Surgery/Procedure Performed:: Diagnostic laparoscopy, bilateral salpingectomy, right oophorectomy, lysis of adhesions, fulguration of endometriosis Description of Surgical Findings:: Right ovarian cyst. Follicular left ovarian cyst. Significant adhesions between left ovary and pelvic side wall and colon. Adhesions in posterior cul-de-sac. Endometriosis implants in ovarian fossa and on uterosacral ligaments bilaterally. Small anterior fibroid. Normal appearing tubes and ovaries. digital strategy director: Arturo Hayes Type of Anesthesia:: General Specimen's removed: Bilateral fallopian tubes, right ovary Estimated Blood Loss (mL): 10 Description of Procedure: The patient was taken to the operating room where general anesthesia was obtained without difficulty. She was prepped and draped in the dorsal lithotomy position with yellofin stirrups. A weighted speculum was placed in the posterior aspect of the vagina and the anterior lip of the cervix was grasped with a single-tooth tenaculum. A Zumi uterine manipulator was placed without difficulty and all other instruments were removed from the vagina. Gloves were changed and attention was directed to the abdomen. The umbilicus was grasped with towel clamps. 10cc of 0.25% marcaine was used to anesthetize the umbilicus. A 5mm incision was made at the base of the umbilicus. A veress needle was inserted without difficulty and intra-abdominal placement was confirmed using the water-drop test. The abdomen was insufflated to 15 mmHg and the veress needle was removed. A 5mm optiview trochar was then placed under direct visualization. Initial survey of the abdominal cavity revealed no evidence of trauma. The above findings were noted. An additional 5mm port were placed in the left and right lower quadrants. The adhesions between the colon and the pelvic side wall and in the posterior cul-de-sac were transected using the ligasure device. The right ovary was elevated and the ligasure device was used to cauterize and transect the IP ligament. This was continued along the mesosalpinx under the fallopian tube. The uteroovarian ligament was then cauterized and transected. The ligasure device was used to grasp, cauterize, and transect the mesosalpinx and the left fallopian tube was amputated and removed from the 5mm port. The area was reinspected and good hemostasis was noted. A specimen bag was introduced through the right lower quadrant port and the right tube and ovary were placed in the bag and removed without difficulty. The port closure device was used to close the fascia on the right lower quadrant port. The procedure was deemed complete. All instruments were removed from the abdominal cavity. The port sites were closed in a simple interrupted fashion using 3-0 monocryl and sterile dressings were placed. The uterine manipulator was removed. The patient was awakened from anesthesia and taken to the recovery room in stable condition. - Complications None - Admit VTE Documentation VTE Present on Admission: No VTE Mechan Device Prophylaxis: SCD's VTE Pharm Prophylaxis ordered?: No Multi Select Codes - Urinary/Genital Urinary/Genital CPT Codes: 49846 Laproscopic BS/O, 42061 Laproscopic ablation endometriosis
--- NOTE | 2020-01-28 14:30 | OV_PTH ---
PATIENT: KHANH RODRIGUEZ [place] [facility] [id number] AGE/SX: 34/F ROOM: RE01/28/[address]: Dr. Katheryn Feng MD : [id number] BED: DIS: 01/28/2020 SPEC #: [id number] RECD: 01/29/20 10:03 STATUS: SAADIA RERaysa #: [id number] NIECY: 01/28/20 14:[address]: Katheryn Feng DEPT: SURGICAL PATHOLOGY RECD BY: Steph Dozier ENTERED: 01/29/20 10:54 SP TYPE: OVARY OTHR DR: Dr. Yoandy Porras MD Tissues: OVARIAN CYST Procedures: Surgery Specimen Level IV HEADER OPERATION: Diagnostic laparoscopy, right oophorectomy, bilateral salpingectomy PRE-OP DIAGNOSIS: Pelvic pain, suspected ovarian cyst TISSUE SUBMITTED: Bilateral fallopian tubes, right ovary MICROSCOPIC DIAGNOSIS Bilateral fallopian tubes and right ovary, right oophorectomy and bilateral salpingectomy: Bilateral fallopian tubes - no pathologic diagnosis. Right ovary - physiologic follicular cysts. JULIAN:kalpana 01/30/20 MICROSCOPIC DESCRIPTION Slides are reviewed. GROSS DESCRIPTION Received in fixative is one container labeled with the patient's name and designated bilateral fallopian tubes, right ovary. The specimen consists of fallopian tube, adjacent ovary identified as right and left fallopian tube. The right fallopian tube measures 5.5 cm in length and 0.5 cm in diameter. The fimbrial end is identified. No tubo-ovarian adhesions are noted. Sections of the fallopian tube reveal unremarkable cut surfaces. The adjacent right ovary is partly disrupted and measures 3.5 x 1.5 x 1.5 cm. Sections reveal multiple hemorrhagic cysts and one corpus luteum. The largest cyst measures 2 cm in greatest dimension. The left fallopian tube is similar appearance to right and measures 7 cm in length and 0.5 cm in diameter. Program Medical Director sections are submitted in four cassettes as follows: 1 - right fallopian tube, 2 & 3 - right ovary, 4 - left fallopian tube. / JULIAN:kalpana 01/29/20 TC:5 CPT: 54343 x2
[2020-01-28] MEDS: HYDROcodone Bitartrate/Apap 5/325 Tablet PO (17:44)
== END 2020-01-28 19:30 | disposition home or self-care (01) ==
LOC: SDC 12:48 → AC 12:49
PROVIDERS: Anesthesiology; PCP Family Medicine; Referring Provider Obstetrics & Gynecology; Visit Provider Obstetrics & Gynecology
PROC: (CPT 49320; principal; 2020-01-28 14:15)
DX: N83.01 Follicular cyst of right ovary (principal); N83.02 Follicular cyst of left ovary; N83.201 Unspecified ovarian cyst, right side; D25.9 Leiomyoma of uterus, unspecified; N80.1 Endometriosis of ovary; N80.0 Endometriosis of uterus; K66.0 Peritoneal adhesions (postprocedural) (postinfection); Z20.828 Contact with and (suspected) exposure to other viral communicable diseases; Z80.41 Family history of malignant neoplasm of ovary; G62.9 Polyneuropathy, unspecified; M79.7 Fibromyalgia; K58.9 Irritable bowel syndrome, unspecified; G80.9 Cerebral palsy, unspecified; Z79.899 Other long term (current) drug therapy; Z87.891 Personal history of nicotine dependence
CPT/HCPCS: 00840; 58661; 58662; 36415; 81025; 85027; 86850; 86900; 86901; 87426; 88305; C9803; J7120; J2405

== ENCOUNTER → 2024-08-22 | Outpatient (CLI) | payer MEDICAID, SELFPAY ==
--- NOTE | 2024-08-22 13:35 | RAD_ITS ---
EXAM: XR Lumbosacral Spine, 4 or 5 Views CLINICAL INDICATION: LUMBAR STRAIN TECHNIQUE: Frontal, lateral and bilateral oblique views of the lumbar spine. COMPARISON: No relevant prior studies available. FINDINGS: VERTEBRAE: Unremarkable. No acute fracture. Normal alignment. SACRUM/COCCYX: Unremarkable as visualized. No acute fracture. DISC SPACES: No acute findings. No significant narrowing. SOFT TISSUES: Unremarkable. RAD/L/S Spine Min 4 Views IMPRESSION: Normal lumbar spine x-rays. Reading Location: [facility]
--- NOTE | 2024-08-22 13:35 | RAD_ITS ---
PROCEDURE: CERV SPINE 4 OR 5 VIEWS 08/22/2024 REASON FOR EXAM: CERVICAL STRAIN TECHNIQUE: CERV SPINE 4 OR 5 VIEWS COMPARISON: None FINDINGS: There is mild reversal of the normal cervical lordosis centered at C5-6. Vertebral body heights are maintained. Mild loss of intervertebral disc height with endplate osteophyte formation at C5-6. No significant osseous neural foraminal narrowing on the left, with evaluation of the right limited due to patient positioning. Prevertebral soft tissues are unremarkable. Odontoid view is unremarkable. Lung apices are clear. RAD/Cerv Spine 4 or 5 Views IMPRESSION: 1. Mild degenerative changes at C5-6. 2. Mild reversal of the normal cervical lordosis may be related to pain, posit ioning, or spasm. Reading Location: [facility]
--- OUTSIDE RECORDS SUMMARY | 2024-08-22 19:51 | XMS RPT_ITS | CCD ---
Author Organization [facility] Care Team Providers Care Tight Cooper Name Role Phone Tunde Alberto MD Primary Care Provider Tunde Alberto MD Primary Care Provider [place] PUBLIC HEALTH SPECIALIST.Cleo CELIS Unavailable Arthur PUBLIC HEALTH SPECIALIST.Alexis CELIS Unavailable [place] PUBLIC HEALTH SPECIALIST.Cleo CELIS Unavailable Unavail able [place] PUBLIC HEALTH SPECIALIST.Cleo CELIS Unavailable TUNDE ALBERTO Primary Care Unavailable ANGY ROLON Attending Unavailable TUNDE ALBERTO Primary Care Unavailable ANGY ROLON Referring Unavailable SANTIAGO, KHUSHBOO Attending Unavailable TUNDE ALBERTO Primary Care Unavailable SANTIAGO, KHUSHBOO Referring Unavailable TUNDE ALBERTO Primary Care Unavailable SANTIGAO, KHUSHBOO Referring Unavailable TUNDE ALBERTO Primary Care Unavailable TUNDE ALBERTO Primary Care Unavailable SANTIAGO, KHUSHBOO Referring Unavailable Allergies Allergy Classification Reported Allergen(s) Allergy Type Date of Onset Reaction(s) Facility (20 sources) Amoxicillin / Clavulanate; Translations: [AMOXICILLIN-POT CLAVULANATE] Drug Allergy 7 Rash [facility] Work Phone: (20 sources) FLUoxetine; Translations: [FLUOXETINE HCL] Drug Allergy 8 Mental Status Change [facility] (20 sources) Seasonal allergy; Translations: [SEASONAL ALLERGIES] Allergy to substance 4 Other: See Comments [facility] (20 sources) venlafaxine; Translations: [VENLAFAXINE HCL] Drug Allergy 8 Other: See Comments [facility] Medications Current Medications Medication Drug Class(es) Dates Sig (Normalized) Sig (Original) [id number] 200 actuat albuterol 0.09 mg/actuat metered dose inhaler (20 sources) beta2-Adrenergic Agonist Start: 04-24-2019 take 2 puff(s) by inhalation every four hours as needed for wheezing albuterol HFA (VENTOLIN HFA) 90 mcg/actuation inhaler Inhale 2 Puffs as instructed every 4 hours as needed for Wheezing/Shortness of Breath. 1 Inhaler 04/24/2019 Active Comment on above: Inhale 2 Puffs as in structed every 4 hours as needed for Wheezing/Shortness of Breath. cyclobenzaprine hydrochloride 5 mg oral tablet (19 sources) Muscle Relaxant Start: 04-04-2023 cyclobenzaprine (FLEXERIL) 5 mg tablet Indications: pelvic pain/muscle spasm Place 1 tab per vagina up to TID prn pain/spasm, if no effect may try 2 tabs TID prn. 30 tablet 1 04/04/2023 Active Comment on above: Place 1 tab per vagi na up to TID prn pain/spasm, if no effect may try 2 tabs TID prn. fluticasone propionate 0.05 mg/actuat metered dose nasal spray (20 sources) Corticosteroid Start: 10-16-2023 take 2 spray(s) by mouth once daily fluticasone (FLONASE) 50 mcg/actuation nasal spray Indications: Environmental allergies Use 2 Sprays in each nostril once daily. Rinse mouth after use. 16 g 5 10/16/2023 Active Start: 08-28-2021 End: 10-14-2023 take 2 spray(s) by mouth once daily fluticasone (FLONASE) 50 mcg/actuation nasal spray Indications: Environmental allergies Use 2 Sprays in each nostril once daily. Rinse mouth after use. 16 g 5 02/08/2022 10/14/2023 Discontinued Comment on above: Use 2 Sprays in each nostril once daily. Rinse mouth after use. glucosamine/chondr fowler A sod (OSTEO BI-FLEX ORAL) (20 sources) glucosamine/mina dr janeth Banda sod (OSTEO BI-FLEX ORAL) Take by mouth once daily. Active glucosamine/mina dr janeth Banda sod (OSTEO BI-FLEX ORAL) Take by mouth once daily. 0 Active Comment on above: Take by mouth once d aily. iv contrast (will be provided with radiology test) (19 sources) Start: 04-04-2023 iv contrast (will be provided with radiology test) MRI Female Pelvis Inject, intravenously, once for 1 dose. No IV access, insert saline lock prior to the beginning of sedation, infusion, injection of imaging exam. Discontinue saline lock post exam. If Pt has a central line or IVAD, may access for administration according to line specific nursing protocol. Once exam is complete flush line and de-access according to line specific nursing protocol in the MR contrast administration guidelines link. 1 Each 04/04/2023 Active Start: 04-04-2023 iv contrast (w ill be provided with radiology test) MRI Female Pelvis Inject, intravenously, once for 1 dose. No IV access, insert saline lock prior to the beginning of sedation, infusion, injection of imaging exam. Discontinue saline lock post exam. If Pt has a central line or IVAD, may access for administration according to line specific nursing protocol. Once exam is complete flush line and de-access according to line specific nursing protocol in the MR contrast administration guidelines link. 1 Each 0 04/04/2023 Active Comment on above: MRI Female Pelvis In ject, intravenously, once for 1 dose. No IV access, insert saline lock prior to the beginning of sedation, infusion, injection of imaging exam. Discontinue saline lock post exam. If Pt has a central line or IVAD, may access for administration according to line specific nursing protocol. Once exam is complete flush line and de-access according to line specific nursing protocol in the MR contrast administration guidelines link. meloxicam 15 mg oral tablet (15 sources) Nonsteroidal Anti-inflammatory Drug Start: 02-08-19 23 End: 11-06-19 24 take 1 tablet by mouth once daily at mealtime as needed for pain meloxicam (MOBIC) 15 mg tablet Indications: Acute bilateral ankle pain , Acute pain of left knee , Foot pain, left Take 1 tablet by mouth once daily. With food. Take as needed for pain and inflammation. 30 tablet 5 05/10/2023 11/06/2023 Active Comment on above: Take 1 tablet by manisha th once daily. With food. Take as needed for pain and inflammation. MULTIVITAMIN ORAL (20 sources) MULTIVITAMIN ORA L Take by mouth once daily. Active MULTIVITAMIN ORA L Take by mouth once daily. 0 Active Comment on above: Take by mouth once d aily. tiZANidine 4 mg oral tablet (20 sources) Central alpha-2 Adrenergic Agonist Start: 0 End: 3 take 1 tablet by mouth every eight hours as needed for muscle spasms tiZANidine (ZANAFLEX) 4 mg tablet Indications: Cervical radiculopathy , Lumbar radiculopathy , Fibromyalgia , Neck pain Take 1 tablet by mouth every 8 hours as needed (muscle spasms). 30 tablet 2 02/08/2022 Active Comment on above: Take 1 tablet by manisha th every 8 hours as needed (muscle spasms). Completed/Discontinued Medications Medication Drug Class(es) Dates Sig (Normalized) Sig (Original) amitriptyline hydrochloride 10 mg oral tablet (1 source) Tricyclic Antidepressant Start: 02-08-2022 take 1 tablet by mouth once daily at bedtime amitriptyline (ELAVIL) 10 mg tablet Indications: Cervical radiculopathy , Lumbar radiculopathy , Fibromyalgia , Neuropathy , Neck pain Take 1 tablet by mouth daily at bedtime. 30 tablet 5 02/08/2022 Active Comment on above: Take 1 tablet by manisha th daily at bedtime. cholecalciferol 1.25 mg oral capsule (1 source) Vitamin D Start: 05-24-2019 End: 02-08-2022 take 1 capsule by mouth every week cholecalciferol, Vitamin D3, (VITAMIN D3) 1,250 mcg (50,000 unit) cap capsule Indications: Low serum vitamin D Take 1 capsule by mouth one time a week. 12 capsule 1 05/24/2019 02/08/2022 Discontinued Comment on above: Take 1 capsule by mo uth one time a week. Surgical Lubricant Jelly gel (12 sources) Start: 04-04-2023 End: 04-08-2024 Surgical Lubricant Jelly gel For MRI Female Pelvis, MRI department to provide. Administer intra-vaginal Surgilube immediately prior the MRI procedure (total amount to patient toleranace). 10 g 04/04/2023 04/08/2024 Discontinued Start: 04-04-2023 Surgical Lubri cant Jelly gel For MRI Female Pelvis, MRI department to provide. Administer intra-vaginal Surgilube immediately prior the MRI procedure (total amount to patient toleranace). 10 g 04/04/2023 Active Start: 04-04-2023 Surgical Lubri cant Jelly gel For MRI Female Pelvis, MRI department to provide. Administer intra-vaginal Surgilube immediately prior the MRI procedure (total amount to patient toleranace). 10 g 0 04/04/2023 Active Comment on above: For MRI Female Pelvi s, MRI department to provide. Administer intra-vaginal Surgilube immediately prior the MRI procedure (total amount to patient toleranace). Problems Active Problems Problem Classification Problem Date Documented Da te Episodic/Chronic Acquired foot deformities (2 sources) Acquired cavus deformity of foot; Translations: [Other acquired deformities of unspecified foot] 05-30-2023 Episodic Allergic reactions (2 sources) Environmental allergy; Translations: [Other allergy status, other than to drugs and biological substances] Episodic Anxiety disorders (20 sources) Anxiety; Translations: [Anxiety disorder, unspecified] Onset: 10-22-2009 Chronic Endometriosis (2 sources) Endometriosis (clinical); Translations: [Endometriosis, unspecified] 03-16-2023 Chronic Headache; including migraine (1 source) Migraine; Translations: [Migraine, unspecified, not intractable, without status migrainosus] Chronic Menstrual disorders (20 sources) Dysmenorrhea; Translations: [Dysmenorrhea, unspecified] Onset: 08-31-2011 Resolved: 06-30-2016 08-31-2011 Chronic Nonmalignant breast conditions (2 sources) Extremely dense breast composition; Translations: [Extremely dense tissue of both breasts on mammography] 05-28-2024 Episodic Other bone disease and musculoskeletal deformities (1 source) Costal chondritis; Translations: [Chondrocostal junction syndrome [Tietze]] Episodic Other connective tissue disease (1 source) Ganglion cyst; Translations: [Ganglion, unspecified site] Episodic Other connective tissue disease (1 source) Myofascial pain syndrome; Translations: [Myalgia, other site] 04-04-2023 Episodic Other connective tissue disease (2 sources) Pain in left foot; Translations: [Pain in left foot] 05-10-2023 Episodic Other connective tissue disease (1 source) H/O: musculoskeletal disease; Translations: [Personal history of other diseases of the musculoskeletal system and connective tissue] 05-10-2023 Episodic Other connective tissue disease (1 source) Muscle pain; Translations: [Myalgia, unspecified site] 05-15-2023 Episodic Other connective tissue disease (5 sources) Ganglion cyst of left dorsal wrist; Translations: [Ganglion, left wrist] 08-15-2024 Episodic Other connective tissue disease (1 source) Ganglion, left wrist; Translations: [Ganglion cyst of dorsum of left wrist] Onset: 08-15-2024 Episodic Other female genital disorders (20 sources) Abnormal uterine bleeding; Translations: [Abnormal uterine and vaginal bleeding, unspecified] Onset: 06-10-2014 06-10-2014 Chronic Other gastrointestinal disorders (1 source) Anismus; Translations: [Outlet dysfunction constipation] 04-04-2023 Episodic Other nervous system disorders (20 sources) Neuropathy; Translations: [Polyneuropathy, unspecified] Onset: 10-22-2009 Chronic Other nervous system disorders (1 source) Complex regional pain syndrome; Translations: [Complex regional pain syndrome I, unspecified] 05-30-2023 Chronic Other non-traumatic joint disorders (2 sources) Pain in left knee; Translations: [Pain in joint, lower leg] 05-10-2023 Episodic Other skin disorders (2 sources) Abnormal foot color; Translations: [Disorder of pigmentation, unspecified] 05-10-2023 Episodic Spondylosis; intervertebral disc disorders; other back problems (20 sources) Intervertebral disc disorder; Translations: [Unspecified thoracic, thoracolumbar and lumbosacral intervertebral disc disorder] Onset: 12-11-2017 12-11-2017 Chronic Unclassified (2 sources) Patient encounter status 04-08-2024 Unclassified (1 source) Extremely dense tissue of both breasts on mammography; Translations: [Extremely dense tissue of both breasts on mammography] Onset: 05-28-2024 Past or Other Problems Problem Classification Problem Date Documented Da te Episodic/Chronic Abdominal pain (20 sources) Chronic pelvic pain of female; Translations: [Pelvic and perineal pain] Onset: 08-31-2011 08-31-2011 Episodic Cancer of cervix (13 sources) Carcinoma in situ of uterine cervix; Translations: [Carcinoma in situ of cervix, unspecified] Onset: 01-21-2005 Resolved: 04-12-2011 04-12-2011 Episodic Cardiac dysrhythmias (20 sources) Tachycardia; Translations: [Tachycardia, unspecified] Onset: 01-03-2018 01-03-2018 Episodic Malaise and fatigue (2 sources) Fatigue; Translations: [Other fatigue] Onset: 04-08-2024 04-08-2024 Episodic Other complications of (13 sources) Supervision of other high risk pregnancies, unspecified trimester; Translations: [Supervision of other high-risk ] Onset: 11-15-2007 Resolved: 04-12-2011 04-12-2011 Episodic Other connective tissue disease (20 sources) Fibromyalgia; Translations: [Fibromyalgia] Onset: 10-22-2009 Episodic Other connective tissue disease (20 sources) Myofascial pain; Translations: [Myalgia, other site] Onset: 05-09-2011 05-09-2011 Episodic Other connective tissue disease (13 sources) Left achilles tendonitis; Translations: [Achilles tendinitis, left leg] Onset: 07-26-2023 05-30-2023 Episodic Other non-traumatic joint disorders (14 sources) Pain in right hip joint; Translations: [Pain in right hip] Onset: 04-02-2018 04-02-2018 Episodic Other non-traumatic joint disorders (15 sources) Acute ankle pain; Translations: [Pain in right ankle and joints of right foot] Onset: 07-26-2023 05-10-2023 Episodic Other non-traumatic joint disorders (8 sources) Hip pain; Translations: [Pain in right hip] Onset: 04-02-2018 04-02-2018 Episodic Other screening for suspected conditions (not mental disorders or infectious disease) (4 sources) Patient encounter status; Translations: [Encounter for screening mammogram for malignant neoplasm of breast] Onset: 05-10-2024 04-08-2024 Episodic Ovarian cyst (13 sources) Cyst of right ovary; Translations: [Unspecified ovarian cyst, right side] Onset: 08-31-2011 Resolved: 06-10-2014 06-10-2014 Episodic Spondylosis; intervertebral disc disorders; other back problems (20 sources) Cervical radiculopathy; Translations: [Radiculopathy, cervical region] Onset: 05-09-2011 Episodic Results Test Name Value Interpretation Reference Range Facility OVon 08-15-2024 [facility] Office Visit (FAM[facility] ) KHANH ORTIZ ([id number]) 1985 F Date Time Provider Department 08/15/24 9:20 AM ANGY ROLON During your visit today, we recorded the following information about you: Pulse Blood pressure Weight 67/minute 101/64 55 kg Angy Rolon, PUBLIC HEALTH SPECIALIST.[employer] SERVICES DISPATCHER 08/15/2024 9:27 AM Signed Chief Complaint Patient presents with: Wrist Pain: Left wrist HPI Khanh Ortiz is a 39 year old female who presents here today for Above Complaints. Patient presents for c/o left wrist pain.Patient reports as a teen she had similar cyst to left wrist and it would bust and eventually didn't come back. About 3 years ago the cyst came back but it is now growing and painful. Also has a spot that may be a second cyst. Past medical history, appointments, medications, allergies reviewed. Previous Medical History PAST MEDICAL HISTORY Diagnosis Date back pain Dysthymic disorder Depression (non-psychotic)/ANXIE TY? BIPOLAR Endometriosis Fibromyalgia Migraine, unspecified, with intractable migraine, so stated, without mention of status migrainosus Migraine Moderate dysplasia of cervix (POLINA II) 02/06/2005 LEEP Neuropathy in Legs Previous Surgical History PAST SURGICAL HISTORY Procedure Laterality Date COLPOSCOPY ([facility])_*FL 06/06/2004 CONIZATION CERVIX W/WO DANDC RPR ELTRD EXC 03/14/2005 moderate dysplasia DILATION AND CURETTAGE DXAND/THER NONOBSTETRIC Dilation AND curettage DILATION AND CURETTAGE DXAND/THER NONOBSTETRIC Dilation AND curettage PAST SURGICAL HISTORY OF 01/28/2020 right oopherectomy, tube removed and endometriosis adhesions. Laparscopic Family History FAMILY HISTORY Problem Relation Age of Onset Alcohol/Drug Mother ETOH Arthritis Mother Psychiatry Mother BIPOLAR Ovarian cancer Mother 51 ovarian Allergies Mother other (endometriosis) Mother Alcohol/Drug Father ETOH Heart Father Hypertension Brother Hypertension Maternal Grandmother Aneurysm Maternal Grandmother BRAIN ANEURYSM Heart Maternal Grandfather mi Breast Cancer Paternal Grandmother Eczema Daughter Emphysema Maternal Aunt Psychiatry Maternal Aunt DEPRESSION Heart Maternal Uncle mi Stroke Maternal Uncle Alcohol/Drug Maternal Uncle ETOH Patient Allergies ALLERGIES Allergen Reactions Effexor [Venlafaxin* Other: See Comments Hair started falling off Prozac [Fluoxetine * Mental Status Change Severely depressed Augmentin [Amoxicil* Rash Seasonal Allergies Other: See Comments Current Medications Current Outpatient Medications on File Prior to Visit Medication Sig fluticasone (FLONASE) 50 mcg/actuation nasal spray Use 2 Sprays in each nostril once daily. Rinse mouth after use. iv contrast (will be provided with radiology test) MRI Female Pelvis Inject, intravenously, once for 1 dose. No IV access, insert saline lock prior to the beginning of sedation, infusion, injection of imaging exam. Discontinue saline lock post exam. If Pt has a central line or IVAD, may access for administration according to line specific nursing protocol. Once exam is complete flush line and de-access according to line specific nursing protocol in the MR contrast administration guidelines link. cyclobenzaprine (FLEXERIL) [address] 1 tab per vagina up to TID prn pain/spasm, if no effect may try 2 tabs TID prn. MULTIVITAMIN ORAL Take by mouth once daily. glucosamine/chondr fowler A sod (OSTEO BI-FLEX ORAL) Take by mouth once daily. tiZANidine (ZANAFLEX) 4 mg tablet Take 1 tablet by mouth every 8 hours as needed (muscle spasms). albuterol HFA (VENTOLIN HFA) 90 mcg/actuation inhaler Inhale 2 Puffs as instructed every 4 hours as needed for Wheezing/Shortness of Breath. No current facility-administered medications on file prior to visit. Social History Social History Tobacco Use Smoking status: Former Current packs/day: 0.00 Types: Cigarettes Start date: 10/14/1998 Quit date: 10/15/2007 Years since quittin.8 Smokeless tobacco: Never Vaping Use Vaping status: Never Used Substance Use Topics Alcohol use: Yes Comment: rarely Drug use: Yes Types: Marijuana Comment: smoke occasionaly Review of Symptoms REVIEW OF SYSTEMS SEE HPI EXAM: BP 101/64 Pulse 67 Wt 55 kg (121 lb 4.1 oz) LMP 03/27/2024 (Exact Date) BMI 21.81 kg/m? General Appearance: Well appearing, alert, in no acute distress, well-hydrated, well nourished.. Musculoskeletal: Positive findings: joint location: on left wrist pain and painful movement, Ganglion left wrist. Health Maintenance List Depression Screening Never done Hepatitis C Screening Never done Hepatitis B Vaccine(1 of 3 - 19+ 3-dose series) Never done Covid-19 Vaccine( season) Never done Influenza Vaccine(1) due on 10/07/2024 Mammogram Screening due on 05/10/2025 Cervical Can (more content not included)... Normal [facility] XR WRIST 3V PA/LAT/OBL LTon 08-15-2024 XR WRIST 3V PA/LAT/OBL LT * * *Final Report* * * DATE OF EXAM: Aug 15 2024 9:49AM WOX [id number] - XR WRIST 3V PA/LAT/OBL LT / PROCEDURE REASON: Ganglion cyst of dorsum of left wrist * * * * Physician Interpretation * * * * EXAM TITLE: XR WRIST 3V PA/LAT/OBL LT EXAM DATE/TIME: 08/15/2024 9:49 AM COMPARISON: None. CLINICAL INDICATION/HISTORY: Ganglion cyst at their TECHNIQUE: PA, lateral and oblique views of left wrist are presented. FINDINGS: No fractures or subluxations are noted. The joint spaces are well preserved. The mineralization of the bones is normal. There is no significant soft tissue swelling or abnormal calcification. IMPRESSION: Unremarkable left wrist x-ray. Pipe Caulker: SIMEON Transcribe Date/Time: Aug 15 2024 10:02A Dictated by : SOFIA KYLE MD This examination was interpreted and the report reviewed and electronically signed by: SOFIA KYLE MD on Aug 15 2024 10:03AM EST [id number] Normal [facility] XR Wrist - left PA and Later al and Obliqueon 08-15-2024 IMPRESSION: Unremarkable left wrist x-ray. Pipe Caulker: SIMEON Transcribe Date/Time: Aug 15 2024 10:02A Dictated by : SOFIA KYLE MD This examination was interpreted and the report reviewed and electronically signed by: SOFIA KYLE MD on Aug 15 2024 10:03AM EST DIVISION OF RADIOLOGY * * *Final Report* * * DATE OF EXAM: Aug 15 2024 9:49AM WOX 5270 - XR WRIST 3V PA/LAT/OBL LT / PROCEDURE REASON: Ganglion cyst of dorsum of left wrist * * * * Physician Interpretation * * * * EXAM TITLE: XR WRIST 3V PA/LAT/OBL LT EXAM DATE/TIME: 08/15/2024 9:49 AM COMPARISON: None. CLINICAL INDICATION/HISTORY: Ganglion cyst at their TECHNIQUE: PA, lateral and oblique views of left wrist are presented. FINDINGS: No fractures or subluxations are noted. The joint spaces are well preserved. The mineralization of the bones is normal. There is no significant soft tissue swelling or abnormal calcification. DIVISION OF RADIOLOGY Provider, [facility] - 08/15/2024 * * *Final Report* * * DATE OF EXAM: Aug 15 2024 9:49AM WOX [id number] - XR WRIST 3V PA/LAT/OBL LT / PROCEDURE REASON: Ganglion cyst of dorsum of left wrist * * * * Physician Interpretation * * * * EXAM TITLE: XR WRIST 3V PA/LAT/OBL LT EXAM DATE/TIME: 08/15/2024 9:49 AM COMPARISON: None. CLINICAL INDICATION/HISTORY: Ganglion cyst at their TECHNIQUE: PA, lateral and oblique views of left wrist are presented. FINDINGS: No fractures or subluxations are noted. The joint spaces are well preserved. The mineralization of the bones is normal. There is no significant soft tissue swelling or abnormal calcification. IMPRESSION IMPRESSION: Unremarkable left wrist x-ray. Pipe Caulker: SIMEON Transcribe Date/Time: Aug 15 2024 10:02A Dictated by : SOFIA KYLE MD This examination was interpreted and the report reviewed and electronically signed by: SOFIA KYLE MD on Aug 15 2024 10:03AM EST [facility] Radiology Study observation (narrative) [facility] XR Wrist - left PA and Later al and ObliqueOrdered By: [facility] Provider on 08-15-2024 [facility] US Breast - bilateralon - IMPRESSION: There are no suspicious sonographic findings in the imaged area. Return to annual screening mammogram is recommended. Annual mammogram will be due in 1 year. BI-RADS Category 2: Benign Whole breast ultrasound is a supplemental breast cancer screening test to be used in addition to screening mammography and does not replace annual screening mammography. Interpreting Radiologist: Margarita Chavez M.D. Electronically signed on: 05/29/2024 Pipe Caulker: ANNE-MARIE Transcribe Date/Time: May 28 2024 9:47A Dictated by : MARGARITA CHAVEZ MD This examination was interpreted and the report reviewed and electronically signed by: MARGARITA CHAVEZ MD on May 29 2024 2:55PM [facility] DIVISION OF RADIOLOGY * * *Final Report* * * DATE OF EXAM: May 28 2024 10:25AM [id number] - [facility] US BREAST COMPLETE NATALYA / PROCEDURE REASON: Extremely dense tissue of both breasts on mammography * * * * Physician Interpretation * * * * RESULT: [address] [place] [address] #[id number] - [facility] US BREAST COMPLETE NATALYA HISTORY: 39 year-old patient seen for screening and screening breast ultrasound in both breasts. Patient is asymptomatic in both breasts. Patient states no personal history of breast cancer. The patient has a family history of breast and ovarian cancer. COMPARISON STUDIES: The present examination has been compared to a prior imaging study dated 05/10/2024 (mammogram). ULTRASOUND TECHNIQUE: Ultrasound of all four quadrants and retroareolar regions in both breasts was performed. Nichole scale images of the real-time examination were reviewed. 3D automated breast ultrasound (ABUS) device was used to perform an automated breast ultrasound with grayscale imaging. These images and multiplanar reconstruction were reviewed on a dedicated review software. ULTRASOUND FINDINGS: There are scattered cysts in both breasts. There are no suspicious findings in the imaged area. DIVISION OF RADIOLOGY Provider, [facility] - 05/29/2024 * * *Final Report* * * DATE OF EXAM: May 28 2024 10:25AM [id number] - [facility] US BREAST COMPLETE NATALYA / PROCEDURE REASON: Extremely dense tissue of both breasts on mammography * * * * Physician Interpretation * * * * RESULT: [address] [place] [address] #[id number] - [facility] US BREAST COMPLETE NATALYA HISTORY: 39 year-old patient seen for screening and screening breast ultrasound in both breasts. Patient is asymptomatic in both breasts. Patient states no personal history of breast cancer. The patient has a family history of breast and ovarian cancer. COMPARISON STUDIES: The present examination has been compared to a prior imaging study dated 05/10/2024 (mammogram). ULTRASOUND TECHNIQUE: Ultrasound of all four quadrants and retroareolar regions in both breasts was performed. Nichole scale images of the real-time examination were reviewed. 3D automated breast ultrasound (ABUS) device was used to perform an automated breast ultrasound with grayscale imaging. These images and multiplanar reconstruction were reviewed on a dedicated review software. ULTRASOUND FINDINGS: There are scattered cysts in both breasts. There are no suspicious findings in the imaged area. IMPRESSION IMPRESSION: There are no suspicious sonographic findings in the imaged area. Return to annual screening mammogram is recommended. Annual mammogram will be due in 1 year. BI-RADS Category 2: Benign Whole breast ultrasound is a supplemental breast cancer screening test to be used in addition to screening mammography and does not replace annual screening mammography. Interpreting Radiologist: Margarita Chavez M.D. Electronically signed on: 05/29/2024 Pipe Caulker: ANNE-MARIE Transcribe Date/Time: May 28 2024 9:47A Dictated by : MARGARITA CHAVEZ MD This examination was interpreted and the report reviewed and electronically signed by: MARGARITA CHAVEZ MD on May 29 2024 2:55PM EST [facility] US Breast - bilateralOrdered By: Cc Provider on 05-29-2024 [facility] US BREAST COMPLETE BILon 05-28-2024 [facility] US BREAST COMPLETE NATALYA * * *Final Report* * * DATE OF EXAM: May 28 2024 10:25AM [facility] [id number] - [facility] US BREAST COMPLETE NATALYA / PROCEDURE REASON: Extremely dense tissue of both breasts on mammography * * * * Physician Interpretation * * * * RESULT: [address] [place] [address] #[id number] - [facility] US BREAST COMPLETE NATALYA HISTORY: 39 year-old patient seen for screening and screening breast ultrasound in both breasts. Patient is asymptomatic in both breasts. Patient states no personal history of breast cancer. The patient has a family history of breast and ovarian cancer. COMPARISON STUDIES: The present examination has been compared to a prior imaging study dated 05/10/2024 (mammogram). ULTRASOUND TECHNIQUE: Ultrasound of all four quadrants and retroareolar regions in both breasts was performed. Nichole scale images of the real-time examination were reviewed. 3D automated breast ultrasound (ABUS) device was used to perform an automated breast ultrasound with grayscale imaging. These images and multiplanar reconstruction were reviewed on a dedicated review software. ULTRASOUND FINDINGS: There are scattered cysts in both breasts. There are no suspicious findings in the imaged area. IMPRESSION: There are no suspicious sonographic findings in the imaged area. Return to annual screening mammogram is recommended. Annual mammogram will be due in 1 year. BI-RADS Category 2: Benign Whole breast ultrasound is a supplemental breast cancer screening test to be used in addition to screening mammography and does not replace annual screening mammography. Interpreting Radiologist: Margarita Chavez M.D. Electronically signed on: 05/29/2024 Pipe Caulker: ANNE-MARIE Transcribe Date/Time: May 28 2024 9:47A Dictated by : MARGARITA CHAVEZ MD This examination was interpreted and the report reviewed and electronically signed by: MARGARITA CHAVEZ MD on May 29 2024 2:55PM EST [id number] N Normal [facility] Breast - bilateralon 05-08 Radiology Study observation (narrative) [facility] THANG SCREENING W TOMOon 05-10 THANG SCREENING W BULL * * *Final Report* * * DATE OF EXAM: May 10 2024 11:32AM [id number] - THANG SCREENING W BULL / PROCEDURE REASON: multiple diagnoses * * * * Physician Interpretation * * * * RESULT: [facility] [place] [address] #[id number] - THANG SCREENING W BULL HISTORY: 39 year-old patient seen for screening. Patient is asymptomatic in both breasts. Patient states no personal history of breast cancer. The patient has a family history of breast and ovarian cancer. COMPARISON STUDIES: This is a baseline study. MAMMOGRAM TECHNIQUE: The study was acquired using full field digital technology and interpreted from soft copy. Digital Breast Tomosynthesis (DBT) images were obtained and used to assist in the interpretation of this examination. MAMMOGRAM FINDINGS: The breasts are extremely dense, which lowers the sensitivity of mammography. There are multiple circumscribed masses in both breasts, several of which have fluctuated in size from prior studies. Multiplicity and bilaterality are consistent with a benign process. No suspicious masses, calcifications or other abnormalities are seen in either breast. IMPRESSION: There is no mammographic evidence of malignancy. Routine screening mammogram is recommended. Annual mammogram will be due in 1 year. BI-RADS Category 2: Benign RISK: Based on the Tyrer-Cuzick (TC) risk assessment model, this patient has a 16.9% lifetime risk of developing breast cancer, meaning they are at average risk for developing breast cancer. However, this is only an estimate based on available history provided on the patient's questionnaire. We encourage all patients to talk with their providers about these results, further recommendations for managing breast health, and appropriate supplemental screening options if the patient has dense breast tissue. Interpreting Radiologist: Seun Mccray M.D. Electronically signed on: 05/13/2024 Pipe Caulker: ANNE-MARIE Transcribe Date/Time: May 10 2024 11:19A Dictated by: SEUN MCCRAY MD This examination was interpreted and the report reviewed and electronically signed by: SEUN MCCRAY MD on May 13 2024 10:40AM EST [id number] N Normal [facility] 25(OH)D3 SerPl-mCncon 2024 25-hydroxyvitamin D3 [Mass/Vol] 18.8 ng/mL Low 31.0-80.0 [facility] Comment on above: Order Comment: Speci men Type: BLOOD SPECIMEN Ordering Facility: [facility] Address: [address] [place] [address] Result Comment: Clas sification of 25 OH Vitamin D status: Deficiency/Insufficiency: < or = 30 ng/ml. Sufficiency/Optimal Levels: 31-80 ng/mL Toxicity: > 100 ng/mL. Test performed by chemiluminescent immunoassay. Performed By: #### 1 989-3 #### [facility] CLIA [id number] [address] [place], [place] [address] [address] [place] CBC W Auto Differential pane l (Bld)on 04-08-2024 Basophils (Bld) [#/Vol] 0.07 10*3/uL [facility] Basophils/100 WBC (Bld) 0.7 % [facility] Differential cell count method Nom (Bld) Auto [facility] Eosinophils (Bld) [#/Vol] 0.18 10*3/uL [facility] Eosinophils/100 WBC (Bld) 1.8 % [facility] Erythrocyte distribution width (RBC) [Ratio] 13.4 % 11.5 - 15.0 % [facility] Hematocrit (Bld) [Volume fraction] 40.3 % 36.0 - 46.0 % [facility] Hemoglobin (Bld) [Mass/Vol] 13.2 g/dL 11.5 - 15.5 g/dL [facility] Immature granulocytes (Bld) [#/Vol] 0.03 10*3/uL [facility] Immature granulocytes/100 WBC (Bld) 0.3 % [facility] Lymphocytes (Bld) [#/Vol] 3.62 10*3/uL [facility] Lymphocytes/100 WBC (Bld) 36.2 % [facility] MCH (RBC) [Entitic mass] 28 pg 26.0 - 34.0 pg [facility] MCHC (RBC) [Mass/Vol] 32.8 g/dL 30.5 - 36.0 g/dL [facility] MCV (RBC) [Entitic vol] 85.6 fL 80.0 - 100.0 fL [facility] Monocytes (Bld) [#/Vol] 0.74 10*3/uL [facility] Monocytes/100 WBC (Bld) 7.4 % [facility] Neutrophils (Bld) [#/Vol] 5.36 10*3/uL [facility] Neutrophils/100 WBC (Bld) 53.6 % [facility] Nucleated RBC (Bld) [#/Vol] [facility] Nucleated RBC/100 WBC (Bld) [Ratio] 0 % /100 WBC [facility] Platelet mean volume (Bld) [Entitic vol] 12.4 fL 9.0 - 12.7 fL [facility] Platelets (Bld) [#/Vol] 258 10*3/uL [facility] RBC (Bld) [#/Vol] 4.71 10*6/uL 3.90 - 5.2 0 m/uL [facility] WBC (Bld) [#/Vol] 10 10*3/uL [facility] Basophils (Bld) [#/Vol] 0.07 10*3/uL Normal <0.11 [facility] Comment on above: Order Comment: Speci men Type: BLOOD SPECIMEN Ordering Facility: [facility] Address: [address] [place] [address] Performed By: #### 5 7021-8 #### [facility] CLIA [id number] [address] [place] [address] [place] Basophils/100 WBC (Bld) 0.7 % Normal [facility] Comment on above: Order Comment: Speci men Type: BLOOD SPECIMEN Ordering Facility: [facility] Address: [address] [place] [address] Performed By: #### 5 7021-8 #### [facility] CLIA [id number] [address] [place] [address] [place] Differential cell count method Nom (Bld) Auto Normal [facility] Comment on above: Order Comment: Speci men Type: BLOOD SPECIMEN Ordering Facility: [facility] Address: [address] [place] [address] Performed By: #### 5 7021-8 #### [facility] CLIA [id number] [address] [place] [address] [place] Eosinophils (Bld) [#/Vol] 0.18 10*3/uL Normal <0.46 [facility] Comment on above: Order Comment: Speci men Type: BLOOD SPECIMEN Ordering Facility: [facility] Address: [address] [place] [address] Performed By: #### 5 7021-8 #### [facility] CLIA [id number] [address] [place] [address] [place] Eosinophils/100 WBC (Bld) 1.8 % Normal [facility] Comment on above: Order Comment: Speci men Type: BLOOD SPECIMEN Ordering Facility: [facility] Address: [address] [place] [address] Performed By: #### 5 7021-8 #### [facility] CLIA [id number] [address] [place] [address] [place] Erythrocyte distribution width (RBC) [Ratio] 13.4 % Normal 11.5-15.0 [facility] Comment on above: Order Comment: Speci men Type: BLOOD SPECIMEN Ordering Facility: [facility] Address: [address] [place] [address] Performed By: #### 5 7021-8 #### [facility] CLIA [id number] [address] [place] [address] [place] Hematocrit (Bld) [Volume fraction] 40.3 % Normal 36.0-46.0 [facility] Comment on above: Order Comment: Speci men Type: BLOOD SPECIMEN Ordering Facility: [facility] Address: [address] [place] [address] Performed By: #### 5 7021-8 #### [facility] CLIA [id number] [address] [place] [address] [place] Hemoglobin (Bld) [Mass/Vol] 13.2 g/dL Normal 11.5-15.5 [facility] Comment on above: Order Comment: Speci men Type: BLOOD SPECIMEN Ordering Facility: [facility] Address: [address] [place] [address] Performed By: #### 5 7021-8 #### [facility] CLIA [id number] [address] [place] [address] [place] Immature granulocytes (Bld) [#/Vol] 0.03 10*3/uL Normal <0.10 [facility] Comment on above: Order Comment: Speci men Type: BLOOD SPECIMEN Ordering Facility: [facility] Address: [address] [place] [address] Performed By: #### 5 7021-8 #### [facility] CLIA [id number] [address] [place] [address] [place] Immature granulocytes/100 WBC (Bld) 0.3 % Normal [facility] Comment on above: Order Comment: Speci men Type: BLOOD SPECIMEN Ordering Facility: [facility] Address: [address] [place] [address] Performed By: #### 5 7021-8 #### [facility] CLIA [id number] [address] [place] [address] [place] Lymphocytes (Bld) [#/Vol] 3.62 10*3/uL Normal 1.00-4.00 [facility] Comment on above: Order Comment: Speci men Type: BLOOD SPECIMEN Ordering Facility: [facility] Address: [address] [place] [address] Performed By: #### 5 7021-8 #### [facility] CLIA [id number] [address] [place] [address] [place] Lymphocytes/100 WBC (Bld) 36.2 % Normal [facility] Comment on above: Order Comment: Speci men Type: BLOOD SPECIMEN Ordering Facility: [facility] Address: [address] [place] [address] Performed By: #### 5 7021-8 #### [facility] CLIA [id number] [address] [place] [address] [place] MCH (RBC) [Entitic mass] 28.0 pg Normal 26.0-34.0 [facility] Comment on above: Order Comment: Speci men Type: BLOOD SPECIMEN Ordering Facility: [facility] Address: [address] [place] [address] Performed By: #### 5 7021-8 #### [facility] CLIA [id number] [address] [place] [address] [place] MCHC (RBC) [Mass/Vol] 32.8 g/dL Normal 30.5-36.0 [facility] Comment on above: Order Comment: Speci men Type: BLOOD SPECIMEN Ordering Facility: [facility] Address: [address] [place] [address] Performed By: #### 5 7021-8 #### [facility] CLIA [id number] [address] [place] [address] [place] MCV (RBC) [Entitic vol] 85.6 fL Normal 80.0-100.0 [facility] Comment on above: Order Comment: Speci men Type: BLOOD SPECIMEN Ordering Facility: [facility] Address: [address] [place] [address] Performed By: #### 5 7021-8 #### [facility] CLIA [id number] [address] [place] [address] [place] Monocytes (Bld) [#/Vol] 0.74 10*3/uL Normal <0.87 [facility] Comment on above: Order Comment: Speci men Type: BLOOD SPECIMEN Ordering Facility: [facility] Address: [address] [place] [address] Performed By: #### 5 7021-8 #### [facility] CLIA [id number] [address] [place] [address] [place] Monocytes/100 WBC (Bld) 7.4 % Normal [facility] Comment on above: Order Comment: Speci men Type: BLOOD SPECIMEN Ordering Facility: [facility] Address: [address] [place] [address] Performed By: #### 5 7021-8 #### [facility] CLIA [id number] [address] [place] [address] [place] Neutrophils (Bld) [#/Vol] 5.36 10*3/uL Normal 1.45-7.50 [facility] Comment on above: Order Comment: Speci men Type: BLOOD SPECIMEN Ordering Facility: [facility] Address: [address] [place] [address] Performed By: #### 5 7021-8 #### [facility] CLIA [id number] [address] [place] [address] [place] Neutrophils/100 WBC (Bld) 53.6 % Normal [facility] Comment on above: Order Comment: Speci men Type: BLOOD SPECIMEN Ordering Facility: [facility] Address: [address] [place] [address] Performed By: #### 5 7021-8 #### [facility] CLIA [id number] [address] [place] [address] [place] Nucleated RBC (Bld) [#/Vol] 10*3/uL Normal <0.01 [facility] Comment on above: Order Comment: Speci men Type: BLOOD SPECIMEN Ordering Facility: [facility] Address: [address] [place] [address] Performed By: #### 5 7021-8 #### [facility] CLIA [id number] [address] [place] [address] [place] Nucleated RBC/100 WBC (Bld) [Ratio] 0.0 /100 WBC Normal [facility] Comment on above: Order Comment: Speci men Type: BLOOD SPECIMEN Ordering Facility: [facility] Address: [address] [place] [address] Performed By: #### 5 7021-8 #### [facility] CLIA [id number] [address] [place] [address] [place] Platelet mean volume (Bld) [Entitic vol] 12.4 fL Normal 9.0-12.7 [facility] Comment on above: Order Comment: Speci men Type: BLOOD SPECIMEN Ordering Facility: [facility] Address: [address] [place] [address] Performed By: #### 5 7021-8 #### [facility] CLIA [id number] [address] [place] [address] [place] Platelets (Bld) [#/Vol] 258 10*3/uL Normal 150-400 [facility] Comment on above: Order Comment: Speci men Type: BLOOD SPECIMEN Ordering Facility: [facility] Address: [address] [place] [address] Performed By: #### 5 7021-8 #### [facility] CLIA [id number] [address] [place] [address] [place] RBC (Bld) [#/Vol] 4.71 10*6/uL Normal 3.90-5.20 [facility] Comment on above: Order Comment: Speci men Type: BLOOD SPECIMEN Ordering Facility: [facility] Address: [address] [place] [address] Performed By: #### 5 7021-8 #### [facility] CLIA [id number] [address] [place] [address] [place] WBC (Bld) [#/Vol] 10.00 10*3/uL Normal 3.70-11.00 [facility] Comment on above: Order Comment: Speci men Type: BLOOD SPECIMEN Ordering Facility: [facility] Address: [address] [place] [address] Performed By: #### 5 7021-8 #### [facility] CLIA [id number] [address] [place] [address] [place] CNOVon 04-08-2024 CNOV Office Visit (OBGYWM ) KHANH ORTIZ ([id number]) 1985 F Date Time Provider Department 04/08/24 3:30 PM KHUSHBOO ZAVALA OBGYWArchana During your visit today, we recorded the following information about you: Blood pressure Weight Height Last Period 54.8 kg 1.588 m 03/27/24 Khushboo Zavala APRN.LALITA 04/08/2024 3:55 PM Signed 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 Still get period: Yes, LMP 03/27/2024 cycles 17-20 with 4 days flow. 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 BIPOLAR Endometriosis Fibromyalgia Migraine, unspecified, with intractable migraine, so stated, without mention of status migrainosus Migraine Moderate dysplasia of cervix (POLINA II) 02/06/2005 LEEP Neuropathy in Legs PAST SURGICAL HISTORY Procedure Laterality Date COLPOSCOPY ([facility] HAND DEPT)_*FL 06/06/2004 CONIZATION CERVIX W/WO DANDC RPR ELTRD EXC 03/14/2005 moderate dysplasia DILATION AND CURETTAGE DXAND/THER NONOBSTETRIC Dilation AND curettage DILATION AND CURETTAGE DXAND/THER NONOBSTETRIC Dilation AND curettage PAST SURGICAL HISTORY OF 01/28/2020 right oopherectomy, tube removed and endometriosis adhesions. Laparscopic FAMILY HISTORY Problem Relation Age of Onset Alcohol/Drug Mother ETOH Arthritis Mother Psychiatry Mother BIPOLAR Ovarian cancer Mother 51 ovarian Allergies Mother other (endometriosis) Mother Alcohol/Drug Father ETOH Heart Father Hypertension Brother Hypertension Maternal Grandmother Aneurysm Maternal Grandmother BRAIN ANEURYSM Heart Maternal Grandfather mi Breast Cancer Paternal Grandmother Eczema Daughter Emphysema Maternal Aunt Psychiatry Maternal Aunt DEPRESSION Heart Maternal Uncle mi Stroke Maternal Uncle Alcohol/Drug Maternal Uncle ETOH SOCIAL HISTORY Social History Tobacco Use Smoking status: Former Current packs/day: 0.00 Types: Cigarettes Start date: 10/14/1998 Quit date: 10/15/2007 Years since quittin.4 Smokeless tobacco: Never Vaping Use Vaping status: Never Used Substance Use Topics Alcohol use: Yes Comment: rarely Drug use: Yes Types: Marijuana Comment: smoke occasionaly REVIEW OF SYSTEMS Abdomen: No abdominal pain,vomiting, diarrhea, or constipation. No early satiety, indigestion, or increased flatulence. Nausea and bloating with menses Bladder: No dysuria, gross hematuria, urinary frequency, urinary urgency, or incontinence. Breast: No breast lumps, nipple d/c, overlying skin changes, redness or skin retraction. Allergies and current medication updated:Yes SENSITIVE EXAM: The sensitive examination was discussed with the Patient or Patient's Authorized Collar Feller. As applicable, any other physician, advance practice provider, medical student, or other health professional student that will be observing or involved in the sensitive examination for educational or training purposes was discussed with the Patient or Authorized Collar Feller. The Patient or Authorized Collar Feller has agreed to proceed with the sensitive examination. (Sensitive examination includes inspection and/or palpation of the breasts, pelvis, prostate and anorectal regions). EXAM: BP 116/60 Ht 5' 2.52 (1.59m) Wt 120 lb 12.8 oz (54.8kg) LMP 03/27/2024 BMI 21.73 kg/(m2). GENERAL: pleasant, female in no apparent distress HEENT: Normocephalic, atraumatic, mucus membranes moist, and no lesions DERMATOLOGY: Normal, without lesions, non-icteric, and non-hirsute BREAST: soft, non-tender, symmetric, no dominant mass, normal nipple-areolar complex, no lymphadenopathy, and no nipple discharge CHEST: Normal inspiratory effort ABDOMEN: soft, non-tender, and no masses PELVIC: external genitalia normal, normal Bartholin's glands, urethra, Bevier's glands, no vulvar lesions, no cervical lesions, good vaginal support, physiologic discharge present, normal appearing perineal body and perianal region BIMANUAL: uterus normal (more content not included)... Normal [facility] 04-08-2024 Ferritin [Mass/Vol] 20.6 ng/mL 14.7 - 2 05.1 ng/mL [facility] Ferritin SerPl-mCncon 2024 Ferritin [Mass/Vol] 20.6 ng/mL Normal 14.7-205.1 [facility] Comment on above: Order Comment: Speci men Type: BLOOD SPECIMEN Ordering Facility: [facility] Address: [address] [place] [address] Performed By: #### 3 016-3, 2275-4, 94000-1 #### [facility] CLIA [id number] [address] [place] [address] [place] Iron and Iron binding capaci ty panelon 04-08-2024 Interpretation and review of laboratory results Abnormal [facility] Iron [Mass/Vol] 37 ug/dL Low 41 - 186 ug/dL [facility] Iron binding capacity [Mass/Vol] 346 ug/dL 232 - 386 ug/dL [facility] Iron saturation [Mass fraction] 10.7 % Low 15.0 - 57.0 % [facility] Iron [Mass/Vol] 37 ug/dL Low 41-186 [facility] Comment on above: Order Comment: Speci men Type: BLOOD SPECIMEN Ordering Facility: [facility] Address: [address] [place] [address] Performed By: #### 3 016-3, 4, 43207-4 #### [facility] CLIA [id number] [address] [place] Iron binding capacity [Mass/Vol] 346 ug/dL Normal 232-386 [facility] Comment on above: Order Comment: Speci men Type: BLOOD SPECIMEN Ordering Facility: [facility] Address: [address] [place] [address] Performed By: #### 3 016-3, 6-4, 19663-3 #### [facility] CLIA [id number] [address] [place] Iron saturation [Mass fraction] 10.7 % Low 15.0-57.0 [facility] Comment on above: Order Comment: Speci men Type: BLOOD SPECIMEN Ordering Facility: [facility] Address: [address] [place] [address] Performed By: #### 3 016-3, 2276-4, 52819-4 #### [facility] CLIA [id number] [address] [place] No Panel Informationon 04-08 Interpretation and review of laboratory results Normal [facility] THYROID STIMULATING HORMONEo n 04-08-2024 TSH Qn 2.11 m[IU]/L [facility] Comment on above: If the patient is pr egnant, TSH reference range varies by gestational period: First Trimester (weeks 9-12): 0.180-2.990 mIU/L Second Trimester: 0.110-3.980 mIU/L Third Trimester: 0.480-4.710 mIU/L Ankush Romero, et al. A Practical Approach for the Verifications and Determination of Site- and Trimester-Specific Reference Intervals for Thyroid Function tests in . Thyroid, 2019:29:3:412-420. Jair Fatima, et al. 2017 Guidelines of the Citizen Of [place] Thyroid Association for the Diagnosis and Management of Thyroid Disease during and the . Thyroid, 2017:27:3:315-389. TSH SerPl-aCncon 04-08-2024 TSH Qn 2.110 m[IU]/L Normal 0.270-4.200 [facility] Comment on above: Order Comment: Olga dominguez Type: BLOOD SPECIMEN Ordering Facility: [facility] Address: [address] [place] [address] Result Comment: If t he patient is , TSH reference range varies by gestational period: First Trimester (weeks 9-12): 0.180-2.990 mIU/L Second Trimester: 0.110-3.980 mIU/L Third Trimester: 0.480-4.710 mIU/L Ankush Romero, et al. A Practical Approach for the Verifications and Determination of Site- and Trimester-Specific Reference Intervals for Thyroid Function tests in . Thyroid, 2019:29:3:412-420. Jair Fatima et al. 2017 Guidelines of the Citizen Of [place] Thyroid Association for the Diagnosis and Management of Thyroid Disease during and the . Thyroid, 2017:27:3:315-389. Performed By: #### 3 016-3, 2276-4, 97823-5 #### [facility] CLIA [id number] [address] OF [facility] XR Foot - left AP and Latera l and obliqueon 05-14-2023 IMPRESSION: 1. No acute radiographic abnormality of the left foot Pipe Caulker: PSCTimur Transcribe Date/Time: May 14 2023 11:06A Dictated by : TRAMAINE MENDIOLA MD This examination was interpreted and the report reviewed and electronically signed by: TRAMAINE MENDIOLA MD on May 14 2023 11:06AM [facility] DIVISION OF RADIOLOGY * * *Final Report* * * DATE OF EXAM: May 10 2023 6:39PM WOX 5336 - XR FOOT 3V AP/LAT/OBL LT / PROCEDURE REASON: multiple diagnoses * * * * Physician Interpretation * * * * FOOT RADIOGRAPHS - LEFT HISTORY: Acute bilateral ankle pain Acute bilateral ankle pain Foot pain, left TECHNOLOGIST PROVIDED HISTORY (if applicable): Chronic pain on lateral side of left foot after previous injury. TECHNIQUE: XR FOOT 3V AP/LAT/OBL LT COMPARISON: Radiographs 10/02/2012 RESULT: Bone mineralization appears normal. Left foot: There are no visualized articular erosions in the foot. No focal bony abnormality is identified. Joint spaces are preserved, and there is no soft tissue swelling.. Small posterior calcaneal spur DIVISION OF RADIOLOGY Provider, [facility] - 05/14/2023 * * *Final Report* * * DATE OF EXAM: May 10 2023 6:39PM WOX 5336 - XR FOOT 3V AP/LAT/OBL LT / PROCEDURE REASON: multiple diagnoses * * * * Physician Interpretation * * * * FOOT RADIOGRAPHS - LEFT HISTORY: Acute bilateral ankle pain Acute bilateral ankle pain Foot pain, left TECHNOLOGIST PROVIDED HISTORY (if applicable): Chronic pain on lateral side of left foot after previous injury. TECHNIQUE: XR FOOT 3V AP/LAT/OBL LT COMPARISON: Radiographs 10/02/2012 RESULT: Bone mineralization appears normal. Left foot: There are no visualized articular erosions in the foot. No focal bony abnormality is identified. Joint spaces are preserved, and there is no soft tissue swelling.. Small posterior calcaneal spur IMPRESSION IMPRESSION: 1. No acute radiographic abnormality of the left foot Pipe Caulker: PSCB Transcribe Date/Time: May 14 2023 11:06A Dictated by : TRAMAINE MENDIOLA MD This examination was interpreted and the report reviewed and electronically signed by: TRAMAINE MENDIOLA MD on May 14 2023 11:06AM EST [facility] XR Knee - left 4 Viewson IMPRESSION: 1. No acute radiographic abnormality of the left knee Pipe Caulker: PSCB Transcribe Date/Time: May 14 2023 11:05A Dictated by : TRAMAINE MENDIOLA MD This examination was interpreted and the report reviewed and electronically signed by: TRAMAINE MENDIOLA MD on May 14 2023 11:06AM EST DIVISION OF RADIOLOGY * * *Final Report* * * DATE OF EXAM: May 10 2023 6:39PM WOX 5202 - XR KNEE 4V AP/PA BOTH+LAT/KADEN LT / PROCEDURE REASON: Acute pain of left knee * * * * Physician Interpretation * * * * KNEE RADIOGRAPHS - LEFT HISTORY: Acute pain of left knee TECHNOLOGIST PROVIDED HISTORY (if applicable): Acute left knee pain, no known injury. TECHNIQUE: XR KNEE 4V AP/PA BOTH+LAT/KADEN LT COMPARISON: None available RESULT: Left knee: There is no acute osseous, articular, or soft tissue abnormality. There is no joint effusion or soft tissue swelling. Joint spaces are preserved. DIVISION OF RADIOLOGY Provider, [facility] - 05/14/2023 * * *Final Report* * * DATE OF EXAM: May 10 2023 6:39PM WOX 5202 - XR KNEE 4V AP/PA BOTH+LAT/KADEN LT / PROCEDURE REASON: Acute pain of left knee * * * * Physician Interpretation * * * * KNEE RADIOGRAPHS - LEFT HISTORY: Acute pain of left knee TECHNOLOGIST PROVIDED HISTORY (if applicable): Acute left knee pain, no known injury. TECHNIQUE: XR KNEE 4V AP/PA BOTH+LAT/KADEN LT COMPARISON: None available RESULT: Left knee: There is no acute osseous, articular, or soft tissue abnormality. There is no joint effusion or soft tissue swelling. Joint spaces are preserved. IMPRESSION IMPRESSION: 1. No acute radiographic abnormality of the left knee Pipe Caulker: PSCB Transcribe Date/Time: May 14 2023 11:05A Dictated by : TRAMAINE MENDIOLA MD This examination was interpreted and the report reviewed and electronically signed by: TRAMAINE MENDIOLA MD on May 14 2023 11:06AM EST [facility] XR Knee - left 4 ViewsOrdere d By: [facility] Provider on 05-14-2023 [facility] No Panel Informationon 05-09 Radiology Study observation (narrative) [facility] US Pelvis transvaginalon Radiology [facility] 08[facility]01-2018 ALLIED HEALTH HNO ID: [id number] Author: Ranjan Martin (Rt) Service: ? Author Type: Client Relationship Manager Type: Allied Health Filed: 08/01/2018 4:45 PM Note Text: Radiology Service Progress Note PATIENT NAME: Khanh Ortiz DATE OF SERVICE: August 01, 2018 TIME: 4:27 PM PATIENT IDENTITY VERIFICATION COMPLETED USING TWO (2) METHODS: Patient confirmed name verbally, ID Band and Date of . PATIENT GENDER DATA: Female. status: : No status: NO. PATIENT RELEVANT IMPLANT DATA REVIEWED: Not Applicable RADIOLOGY DEPARTMENT: MR; Exam(s) Completed: Lower MSK: Hip, right PERIPHERAL IV DATA: Not applicable SIGNED BY: RT Martin Joyce Graber August 01, 2018 4:27 PM [facility] MRI HIP WO IVCON RTon 2018 MRI HIP WO IVCON RT * * *Final Report* * * DATE OF EXAM: Aug 01 2018 4:44PM [facility] 0207 - MRI HIP WO IVCON RT / PROCEDURE REASON: multiple diagnoses * * * * Physician Interpretation * * * * EXAMINATION: MRI HIP WO IVCON RT ____ Clinical history: Pain, popping, arthralgia Technique: Multiplanar, multisequence images of the right hip without contrast Contrast: None Comparison: None available at this time RESULT: The femoral head demonstrates normal morphology. There is no fracture or avascular necrosis. No chondral irregularity. No hip joint effusion. Insertions of the greater and lesser trochanters are intact. Iliofemoral and ischiofemoral ligaments are normal. No evidence of labral tear or cyst formation. Bone marrow signal is normal. Origin of the common hamstring tendons are normal. The symphysis pubis and adductor plate are normal. The sacroiliac articulations are normal. Normal pelvic girdle musculature IMPRESSION: NORMAL EVALUATION Pipe Caulker: PSCB Transcribe Date/Time: Aug 01 2018 4:52P Dictated by : CECILIO ABDULLAHI MD This examination was interpreted and the report reviewed and electronically signed by: CECILIO ABDULLAHI MD on Aug 01 2018 4:54PM EST [id number] N Normal [facility] Vital Signs Date Time Vital Sign Value Performing Clinician Faci [facility] 08-15-2024 09:13-0400 Body mass index (BMI) [Ratio] 21.81 kg/m2 Angy Rolon APRN.LALITA Work Phone: [facility] 08-15-2024 09:13-0400 Body weight 55 kg Angy Rolon APRN.OIL WELL SERVICES DISPATCHER Work Phone: [facility] 08-15-2024 09:13-0400 Diastolic blood pressure 64 mm[Hg] Angy Rolon APRN.OIL WELL SERVICES DISPATCHER Work Phone: [facility] 08-15-2024 09:13-0400 Heart rate 67 /min Angy Rolon APRN.OIL WELL SERVICES DISPATCHER Work Phone: [facility] 08-15-2024 09:13-0400 Systolic blood pressure 101 mm[Hg] Angy Rolon APRN.OIL WELL SERVICES DISPATCHER Work Phone: [facility] 04-08-2024 15:34-0500 Body height 158.8 cm Khushboo Zavala APRN.OIL WELL SERVICES DISPATCHER Work Phone: [facility] 04-08-2024 15:34-0500 Body mass index (BMI) [Ratio] 21.73 kg/m2 Khushboo Zavala APRN.OIL WELL SERVICES DISPATCHER Work Phone: [facility] 04-08-2024 15:34-0500 Body weight 54.8 kg Khushboo [place] PUBLIC HEALTH SPECIALIST.OIL WELL SERVICES DISPATCHER Work Phone: [facility] 04-08-2024 15:34-0500 Diastolic blood pressure 60 mm[Hg] Khushboo [place] PUBLIC HEALTH SPECIALIST.OIL WELL SERVICES DISPATCHER Work Phone: [facility] 04-08-2024 15:34-0500 Systolic blood pressure 116 mm[Hg] Khushboo Santiago PUBLIC HEALTH SPECIALIST.OIL WELL SERVICES DISPATCHER Work Phone: [facility] 07-26-2023 08:00-0400 Diastolic blood pressure 69 mm[Hg] Kevin Golias PT Work Phone: [facility] 07-26-2023 08:00-0400 Heart rate 74 /min Kevin Golias PT Work Phone: [facility] 07-26-2023 08:00-0400 Systolic blood pressure 104 mm[Hg] Kevin Golias PT Work Phone: [facility] 05-10-2023 17:41-0400 Body weight 53.52 kg Cleo Tannhof PUBLIC HEALTH SPECIALIST.OIL WELL SERVICES DISPATCHER Work Phone: [facility] 05-10-2023 17:41-0400 Diastolic blood pressure 70 mm[Hg] Cleo Tannhof PUBLIC HEALTH SPECIALIST.OIL WELL SERVICES DISPATCHER Work Phone: [facility] 05-10-2023 17:41-0400 Heart rate 77 /min Cleo Tannhof PUBLIC HEALTH SPECIALIST.OIL WELL SERVICES DISPATCHER Work Phone: [facility] 05-10-2023 17:41-0400 Respiratory rate 16 /min Cleo Tannhof PUBLIC HEALTH SPECIALIST.OIL WELL SERVICES DISPATCHER Work Phone: [facility] 05-10-2023 17:41-0400 SaO2% (BldA) [Mass fraction] 98 % Cleo Tannhof PUBLIC HEALTH SPECIALIST.OIL WELL SERVICES DISPATCHER Work Phone: [facility] 05-10-2023 17:41-0400 Systolic blood pressure 110 mm[Hg] Cleo Tannhof PUBLIC HEALTH SPECIALIST.OIL WELL SERVICES DISPATCHER Work Phone: [facility] 04-04-2023 09:21-0500 Body height 157.5 cm Cleo Garcias MD Work Phone: [facility] 04-04-2023 09:21-0500 Body weight 52.62 kg Cleo Garcias MD Work Phone: [facility] 04-04-2023 09:21-0500 Diastolic blood pressure 77 mm[Hg] Cleo Garcias MD Work Phone: [facility] 04-04-2023 09:21-0500 Systolic blood pressure 119 mm[Hg] Cleo Garcias MD Work Phone: [facility] 02-08-2022 13:26-0500 Body height 161.3 cm Tunde Alberto MD Work Phone: [facility] 02-08-2022 13:26-0500 Body weight 54.07 kg Tunde Alberto MD Work Phone: [facility] 02-08-2022 13:26-0500 Diastolic blood pressure 68 mm[Hg] Tunde Alberto MD Work Phone: [facility] 02-08-2022 13:26-0500 Heart rate 78 /min Tunde Alberto MD Work Phone: [facility] 02-08-2022 13:26-0500 Respiratory rate 16 /min Tunde Alberto MD Work Phone: [facility] 02-08-2022 13:26-0500 Systolic blood pressure 106 mm[Hg] Tunde Alberto MD Work Phone: [facility] Encounters Encounter Date Encounter Type Care Provider Facility Start: 08-15-2024 End: 08-15-2024 Subsequent hospital visit by physician Xr [facility] [place] Work Phone: Radiology Comment on above: Ganglion cyst of yari sum of left wrist [M67.432] Start: 08-15-2024 End: 08-15-2024 Patient encounter procedure Angy Rolon APRN.LALITA Work Phone: Family Medicine [place] Comment on above: Ganglion cyst of yari sum of left wrist (Primary Dx) Start: 08-15-2024 End: 08-15-2024 ambulatory TUNDE More [facility] Facility:[facility] Start: 05-29-2024 End: 07-29-2024 Follow-up encounter Lana Michel MD Work Phone: OB/Gynecology Start: 05-28-2024 ambulatory TUNDE RAYHYANNIS Facil ity:[facility] Start: 05-28-2024 End: 05-28-2024 Subsequent hospital visit by physician Screening Ultrasound Main Work Phone: Mammography Comment on above: Extremely dense tiss ue of both breasts on mammography [R92.343] Start: 05-13-2024 End: 07-13-2024 Follow-up encounter Khushboo Zavala APRN.CNP Work Phone: OB/Gynecology Start: 05-10-2024 End: 05-10-2024 ambulatory KHUSHBOO ZAVALA Facility:[facility] Start: 05-10-2024 Encounter for gynecological examination (general) (routine) [facility] Start: 05-10-2024 End: 05-10-2024 Patient encounter status Screen [facility] c Start: 05-10-2024 End: 05-10-2024 Subsequent hospital visit by physician Screen Mammo [facility] Mammogram Comment on above: Encounter for gyneco logical examination (general) (routine) without abnormal findings [Z01.419] Start: 04-09-2024 End: 04-09-2024 Follow-up encounter Khushboo Zavala APRN.CNP Work Phone: OB/Gynecology Start: 04-08-2024 End: 04-08-2024 ambulatory KHUSHBOO ZAVALA Facility:[facility] Start: 04-08-2024 End: 04-08-2024 Patient encounter procedure Khushboo Zavala APRN.CNP Work Phone: OB/Gynecology Comment on above: Encounter for gyneco logical examination (general) (routine) without abnormal findings (Primary Dx); Encounter for screening mammogram for breast cancer; Other fatigue Start: 04-08-2024 End: 04-08-2024 Patient encounter status Khushboo Zavala APRN.OIL WELL SERVICES DISPATCHER Work Phone: [facility] Start: 10-14-2023 End: 10-16-2023 Refill Tunde Alberto MD Work Phone: [facility] Comment on above: Refill Request Start: 08-22-2023 E-mail encounter pati painter caregiver Cc Provider [facility] Start: 08-22-2023 Patient encounter procedure [facility] Provider [facility] Comment on above: 11/09 appointment Start: 07-26-2023 End: 07-26-2023 ambulatory Kevin Golias PT Work Phone: [facility] Physical Therapy Comment on above: Acute left ankle audi n; Tendonitis, Achilles, left Start: 05-30-2023 End: 05-30-2023 Patient encounter procedure Manjeet Josafat Work Phone: Podiatry Comment on above: Acute left ankle audi n (Primary Dx); Acquired pes cavus; Right foot drop; Tendonitis, Achilles, left; RSD (reflex sympathetic dystrophy) Start: 05-15-2023 Telephone encounter Cleo mckeon PUBLIC HEALTH SPECIALIST.OIL WELL SERVICES DISPATCHER Work Phone: [facility] Comment on above: Results (Xrays/US DV T) Start: 05-11-2023 End: 05-11-2023 Subsequent hospital visit by physician [facility] Comment on above: Discoloration of ski n of foot [L81.9] Start: 05-10-2023 End: 05-10-2023 Subsequent hospital visit by physician [facility] [place] Work Phone: Radiology Comment on above: Acute pain of left k nee [M25.562] Start: 05-10-2023 End: 05-10-2023 Patient encounter procedure Cleo Martinez APRN.OIL WELL SERVICES DISPATCHER Work Phone: [facility] Comment on above: Foot pain, left (Natacha va Dx); Acute pain of left knee; Acute bilateral ankle pain; Discoloration of skin of foot; History of right foot drop Start: 04-07-2023 Orders Only Lola chowdhury APRN.OIL WELL SERVICES DISPATCHER Work Phone: Gynecology Comment on above: Preoperative examina tion (Primary Dx) Start: 04-07-2023 Preprocedural examination done Lola Zhao APRN.OIL WELL SERVICES DISPATCHER Work Phone: [facility] Work Phone: Start: 04-05-2023 Telephone encounter Cleo hall MD Work Phone: [facility] Comment on above: Schedule Surgery Start: 04-04-2023 End: 04-04-2023 Office outpatient visit 40 minutes Cleo Garcias MD Work Phone: [facility] Comment on above: Endometriosis (Prima ry Dx); Pelvic and perineal pain; Spastic pelvic floor syndrome; Myofascial pain syndrome; Preop examination Start: 04-04-2023 End: 04-04-2023 Preprocedural examination done Cleo Garcias MD Work Phone: [facility] Work Phone: Start: 03-16-2023 Telephone encounter Khushboo mckeon PUBLIC HEALTH SPECIALISTKittyOIL WELL SERVICES DISPATCHER Work Phone: OB/Gynecology Comment on above: Results Start: 03-16-2023 End: 03-16-2023 Subsequent hospital visit by physician [facility] Work Phone: Radiology Comment on above: Endometriosis [N80.9 ] Start: 02-08-2022 End: 02-08-2022 Patient encounter procedure Tunde Alberto MD Work Phone: [facility] [place] Comment on above: Wellness examination (Primary Dx); Cervical radiculopathy; Neck pain; Lumbar radiculopathy; Fibromyalgia; Neuropathy; Costochondritis; Migraine headaches; Anxiety; Ganglion cyst; Environmental allergies Start: 02-08-2022 End: 02-08-2022 Patient encounter status Tunde Alberto MD Work Phone: [facility] [place] Procedures Date Procedure Procedure Detail Performing Clinician Start: 08-15-2024 Radex wrist complete minimum 3 views Angy Rolon PUBLIC HEALTH SPECIALIST.OIL WELL SERVICES DISPATCHER Work Phone: Start: 05-28-2024 Us breast uni real t rosaura with image complete Khushboo Zavala PUBLIC HEALTH SPECIALIST.LALITA Work Phone: Start: 05-10-2023 Radex foot complete minimum 3 views Cleo Martinez PUBLIC HEALTH SPECIALIST.LALITA Work Phone: Start: 03-16-2023 Us transvaginal Khushboo garcia PUBLIC HEALTH SPECIALIST.LALITA Work Phone: Plan of Treatment Date Care Activity Detail Author Start: 08-17-2030 Urine microalbumin profile [facility] Start: 03-02-2028 Screening for malign ant neoplasm of cervix [facility] Start: 05-10-2025 Screening for malign ant neoplasm of breast Mammogram Screening [facility] Start: 04-10-2025 End: 04-10-2025 Patient encounter procedure 04/10/2025 3:00 PM EST Office Visit OB/Gynecology [address] [place] [id number] Khushboo Zavala APRN.LALITA [address] [place] [address] Annual OB/Gynecology Comment on above: Annual Start: 12-15-2024 HPV TESTING HPV TESTING [facility] Start: 12-15-2024 PAP TESTING PAP TESTING [facility] Start: 10-07-2024 Influenza vaccination [facility] Start: 05-06-2024 End: 05-06-2024 Patient encounter procedure 05/06/2024 9:30 AM EDT Appointment Mammogram [address] [place] [address] Encounter for screening mammogram for breast cancer [Z12.31] Mammogram Comment on above: Encounter for screen ing mammogram for breast cancer [Z12.31] Start: 2024 Screening for malign ant neoplasm of breast Mammogram Screening [facility] Start: 04-08-2024 End: 07-08-2024 25-hydroxyvitamin D3 [Mass/volume] in Serum or Plasma [facility] Comment on above: Expected: 04/08/2024 , Expires: 07/08/2024 Start: 03-06-2024 Covid-19 Vaccine (#1) Covid-19 Vacci ne (#1) [facility] Comment on above: Postponed from 11/05 (Declined at this time) Start: 03-06-2024 Covid-19 Vaccine ( season) Covid-19 Vaccine () [facility] Comment on above: Postponed from 10/07 (Declined at this time) Start: 03-06-2024 Hepatitis C screening Hepatitis C [facility] Comment on above: Postponed from 05/05 (Declined at this time) Start: 03-04-2024 End: 03-04-2024 Patient encounter procedure 03/04/2024 9:30 AM EST Office Visit OB/Gynecology [address] [place], [place] [id number] Khushboo Zavala APRN.OIL WELL SERVICES DISPATCHER [address] [facility] [place], [place] [address] ANNUAL OB/Gynecology Comment on above: ANNUAL Start: 02-05-2024 End: 02-05-2024 Patient encounter procedure 02/05/2024 11:00 AM EST Office Visit Gynecology [address] [place] [address] Cleo Garcias MD [address] [place] [address] POST OP 6 WEEKS Gynecology Comment on above: POST OP 6 WEEKS Start: 02-02-2024 End: 02-02-2024 Patient encounter procedure Gynecology Comment on above: POST OP 6 WEEKS Start: 01-05-2024 End: 01-05-2024 Patient encounter procedure Gynecology Comment on above: POST OP 2 WEEKS Start: 12-20-2023 End: 12-20-2023 Admission to same day surgery center 12/20/2023 1:02 PM EST - 12/20/2023 5:11 PM EST Surgery Admitting [address] [place] [address] Cleo Garcias MD [address] [place] [address] LAPAROSCOPIC HYSTERECTOMY TOTAL FOR UTERUS 250 G OR LESS W/REMOVAL TUBE(S) AND/OR OVARY(S) Admitting Comment on above: LAPAROSCOPIC HYSTERE CTOMY TOTAL FOR UTERUS 250 G OR LESS W/REMOVAL TUBE(S) AND/OR OVARY(S) Start: 12-20-2023 End: 12-20-2023 Laps fulg/exc ovary viscera/peritoneal surface LAPAROSCOPY WITH EXCISION OF ENDOMETRIAL LESIONS PELVIS Endometriosis Pelvic and perineal pain Spastic pelvic floor syndrome Myofascial pain syndrome Preop examination 12/20/2023 1:02 PM EST [facility] Start: 12-20-2023 End: 12-20-2023 Laps total hysterect 250 gm/< w/rmvl tube/ovary LAPAROSCOPIC HYSTERECTOMY TOTAL FOR UTERUS 250 G OR LESS W/REMOVAL TUBE(S) AND/OR OVARY(S) Endometriosis Pelvic and perineal pain Spastic pelvic floor syndrome Myofascial pain syndrome Preop examination 12/20/2023 1:02 PM EST [facility] Start: 12-20-2023 Subsequent hospital visit by physician 12/20/2023 1:02 PM EST Hospital Encounter Admitting [address] [place] [address] Cleo Garcias MD [address] [place] [address] Endometriosis [N80.9], Pelvic and perineal pain [R10.2], Spastic pelvic floor syndrome [K59.02], Myofascial pain syndrome [M79.18], Preop examination [Z01.818] Admitting Comment on above: Endometriosis [N80.9 ], Pelvic and perineal pain [R10.2], Spastic pelvic floor syndrome [K59.02], Myofascial pain syndrome [M79.18], Preop examination [Z01.818] Start: 12-04-2023 End: 12-04-2023 ambulatory Gynecology Comment on above: PRE OP TEACHING TELE VISIT Start: 11-29-2023 End: 11-29-2023 Patient encounter procedure 11/29/2023 9:00 AM EDT Office [place] [address] SURGERY [employer] Screening Comment on above: SURGERY Start: 11-20-2023 End: 11-20-2023 Patient encounter procedure 11/20/2023 2:00 PM EDT Office Visit Gynecology [address] [place] [address] Cleo Garcias MD [address] [place] [address] PRE OP SURGERY CONSENT/MEDICAID CONSENT Gynecology Comment on above: PRE OP SURGERY CONSE NT/MEDICAID CONSENT Start: 11-19-2023 End: 02-18-2024 CBC panel - Blood by Automated count CBC Lab Routine Preoperative examination Expected: 11/19/2023 (Approximate), Expires: 02/18/2024 [facility] Work Phone: Comment on above: Expected: 11/19/2023 (Approximate), Expires: 02/18/2024 Start: 11-19-2023 End: 02-18-2024 TYPE AND SCREEN,30 DAY TYPE AND SCREEN,30 DAY Blood Bank Routine Preoperative examination Expected: 11/19/2023 (Approximate), Expires: 02/18/2024 [facility] Work Phone: Comment on above: Expected: 11/19/2023 (Approximate), Expires: 02/18/2024 Start: 11-10-2023 End: 11-10-2023 Patient encounter procedure Gynecology Comment on above: PRE OP SURGERY CONSE NT/MEDICAID CONSENT Start: 10-08-2023 Covid-19 Vaccine ( season) Covid-19 Vaccine ( season) [facility] Start: 10-08-2023 Covid-19 Vaccine ( season) Covid-19 Vaccine ( season) [facility] Start: 10-08-2023 Influenza vaccination C [facility] Start: 08-14-2023 End: 08-14-2023 Patient encounter procedure 08/14/2023 3:45 PM EDT Office Visit Podiatry [address] [place], [place] [id number] Manjeet Maurice [address] [place] [address] left ankle follow up Podiatry Comment on above: left ankle follow up Start: 08-06-2023 Influenza vaccination Influenza Vacc ine (#1) [facility] Comment on above: Postponed from 10/07 (Declined at this time) Start: 08-03-2023 End: 08-03-2023 ambulatory 08/03/2023 3:45 PM EDT OT/PT/Speech Visit [facility] [address] [place] [address] Kevin Green, PT [address] [place] [address] Acute left ankle pain [M25.572 (ICD-10-CM)]; Tendonitis, Achilles, left [M76.62 (ICD-10-CM)] [facility] Comment on above: Acute left ankle audi n [M25.572 (ICD-10-CM)]; Tendonitis, Achilles, left [M76.62 (ICD-10-CM)] Start: 08-01-2023 End: 08-01-2023 ambulatory 08/01/2023 2:45 PM EDT OT/PT/Speech Visit [facility] [address] [place] [address] Kevin Green, PT [address] [place] [address] Acute left ankle pain [M25.572 (ICD-10-CM)]; Tendonitis, Achilles, left [M76.62 (ICD-10-CM)] [facility] Comment on above: Acute left ankle audi n [M25.572 (ICD-10-CM)]; Tendonitis, Achilles, left [M76.62 (ICD-10-CM)] Start: 07-11-2023 End: 07-11-2023 Patient encounter procedure 07/11/2023 5:50 PM EDT Appointment MRI Q [address] [address] Endometriosis [N80.9] MRI Q Comment on above: Endometriosis [N80.9 ] Start: 06-29-2023 End: 06-29-2023 Patient encounter procedure 06/29/2023 8:00 AM EDT Office Visit Podiatry [address] [place] [address] Manjeet Maurice [address] [place] [id number] 1 MONTH FOLLOW UP L ANKLE PAIN Podiatry Comment on above: 1 MONTH FOLLOW UP L ANKLE PAIN Start: 06-13-2023 End: 06-13-2023 ambulatory 06/13/2023 8:15 AM EDT OT/PT/Speech Visit [facility] [address] [place] [id number] Patrice Damon, PT [address] [place], [place] [id number] Acute left ankle pain [M25.572] [facility] Comment on above: Acute left ankle audi n [M25.572] Start: 05-15-2023 End: 08-14-2023 25-hydroxyvitamin D3 [Mass/volume] in Serum or Plasma VITAMIN D 25 HYDROXY Lab Routine Myalgias Expected: 05/15/2023, Expires: 08/14/2023 [facility] Work Phone: Comment on above: Expected: 05/15/2023 , Expires: 08/14/2023 Start: 05-15-2023 End: 08-14-2023 C reactive protein [Mass/volume] in Serum or Plasma C-REACTIVE PROTEIN (CRP) Lab Routine Myalgias Expected: 05/15/2023, Expires: 08/14/2023 [facility] Work Phone: Comment on above: Expected: 05/15/2023 , Expires: 08/14/2023 Start: 05-15-2023 End: 08-14-2023 CBC W Auto Differential panel - Blood CBC + DIFF Lab Routine Myalgias Expected: 05/15/2023, Expires: 08/14/2023 [facility] Work Phone: Comment on above: Expected: 05/15/2023 , Expires: 08/14/2023 Start: 05-15-2023 End: 08-14-2023 Cobalamin (Vitamin B12) [Mass/volume] in Serum or Plasma VITAMIN B12 BLOOD Lab Routine Myalgias Expected: 05/15/2023, Expires: 08/14/2023 [facility] Work Phone: Comment on above: Expected: 05/15/2023 , Expires: 08/14/2023 Start: 05-15-2023 End: 08-14-2023 Comprehensive metabolic 2000 panel - Serum or Plasma COMP METABOLIC PANEL Lab Routine Myalgias Expected: 05/15/2023, Expires: 08/14/2023 [facility] Work Phone: Comment on above: Expected: 05/15/2023 , Expires: 08/14/2023 Start: 05-15-2023 End: 08-14-2023 Erythrocyte sedimentation rate SED RATE WESTERGREN Lab Routine Myalgias Expected: 05/15/2023, Expires: 08/14/2023 [facility] Work Phone: Comment on above: Expected: 05/15/2023 , Expires: 08/14/2023 Start: 05-15-2023 End: 08-14-2023 Ferritin [Mass/volume] in Serum or Plasma FERRITIN BLD Lab Routine Myalgias Expected: 05/15/2023, Expires: 08/14/2023 [facility] Work Phone: Comment on above: Expected: 05/15/2023 , Expires: 08/14/2023 Start: 05-15-2023 End: 08-14-2023 Folate [Mass/volume] in Serum or Plasma FOLATE SERUM Lab Routine Myalgias Expected: 05/15/2023, Expires: 08/14/2023 [facility] Work Phone: Comment on above: Expected: 05/15/2023 , Expires: 08/14/2023 Start: 05-15-2023 End: 08-14-2023 Iron and Iron binding capacity panel - Serum or Plasma IRON + TIBC Lab Routine Myalgias Expected: 05/15/2023, Expires: 08/14/2023 [facility] Work Phone: Comment on above: Expected: 05/15/2023 , Expires: 08/14/2023 Start: 05-15-2023 End: 08-14-2023 Nuclear Ab [Presence] in Serum by Immunoassay KIP BLOOD Lab Routine Myalgias Expected: 05/15/2023, Expires: 08/14/2023 [facility] Work Phone: Comment on above: Expected: 05/15/2023 , Expires: 08/14/2023 Start: 05-15-2023 End: 08-14-2023 Rheumatoid factor [Units/volume] in Serum or Plasma RHEUMATOID FACTOR BL Lab Routine Myalgias Expected: 05/15/2023, Expires: 08/14/2023 [facility] Work Phone: Comment on above: Expected: 05/15/2023 , Expires: 08/14/2023 Start: 02-08-2023 COVID-19 VACCINE (#1) COVID-19 VACCI NE (#1) [facility] Comment on above: Postponed from 11/05 (Declined at this time) Start: 02-08-2023 HEPATITIS C SCREENING HEPATITIS C SC [facility] Comment on above: Postponed from 05/05 (Declined at this time) Start: 02-06-2023 Behavioral Health Screening Behavioral Health Screening [facility] Start: 02-05-2023 DEPRESSION ASSESSMENT DEPRESSION ASS ESSMENT [facility] Comment on above: Postponed from 02/06 (Declined at this time) Start: 08-05-2022 Influenza vaccination INFLUENZA (#1) [facility] Comment on above: Postponed from 10/07 (Declined at this time) Start: 05-06-2003 Hepatitis B Vaccine (1 of 3 - 19+ 3-dose series) Hepatitis B Vaccine (1 of 3 - 19+ 3-dose series) [facility] Start: 2002 Depression Screening Depression Scre ening [facility] Start: 2002 Hepatitis C screening Hepatitis C Sc nghia [facility] Start: 1984 HEPATITIS B (1 of 3 - 3-dose series) HEPATITIS B (1 of 3 - 3-dose series) [facility] Start: 1984 Hepatitis B Vaccine (1 of 3 - 3-dose series) Hepatitis B Vaccine (1 of 3 - 3-dose series) [facility] End: 05-08-2025 DBT Breast - bilateral screening THANG SCREENING W BULL Radiology Routine Encounter for gynecological examination (general) (routine) without abnormal findings Encounter for screening mammogram for breast cancer 1 Occurrences starting 04/08/2024 until 05/08/2025 [facility] Work Phone: Comment on above: 1 Occurrences starti ng 04/08/2024 until 05/08/2025 DBT Breast - bilater al screening THANG SCREENING W BULL Radiology Routine Encounter for gynecological examination (general) (routine) without abnormal findings Encounter for screening mammogram for breast cancer 05/10/2024 11:32 AM EDT [facility] Work Phone: End: 05-03-2024 MR Pelvis WO and W contrast IV MRI FEMALE PELVIS WO/W IVCON Radiology Routine Endometriosis Pelvic and perineal pain 1 Occurrences starting 04/04/2023 until 05/03/2024 [facility] Work Phone: Comment on above: 1 Occurrences starti ng 04/04/2023 until 05/03/2024 REFER FOR ADMIT INTERVIEW REFER FOR ADMIT INTERVIEW Procedures Routine Preop examination Ordered: 04/04/2023 [facility] Work Phone: Comment on above: Ordered: 04/04/2023 End: 06-08-2024 US Lower extremity vein - bilateral US DVT LOWER BILATERAL Radiology Routine Discoloration of skin of foot 1 Occurrences starting 05/10/2023 until 06/08/2024 [facility] Work Phone: Comment on above: 1 Occurrences starti ng 05/10/2023 until 06/08/2024 US Lower extremity v ein - bilateral US DVT LOWER BILATERAL Radiology Routine Discoloration of skin of foot 05/11/2023 4:34 PM EDT [facility] Work Phone: End: 06-08-2024 XR Foot - left AP and Lateral and oblique XR FOOT GENERAL 3V AP/LAT/OBL LEFT Radiology Routine Acute bilateral ankle pain Foot pain, left 1 Occurrences starting 05/10/2023 until 06/08/2024 [facility] Work Phone: Comment on above: 1 Occurrences starti ng 05/10/2023 until 06/08/2024 XR Foot - left AP an d Lateral and oblique XR FOOT GENERAL 3V AP/LAT/OBL LEFT Radiology Routine Acute bilateral ankle pain Foot pain, left 05/10/2023 6:39 PM EDT [facility] Work Phone: End: 06-08-2024 XR Knee - left 4 Views XR KNEE GENERAL 4V AP BOTH/PA BOTH/LAT/MERC LEFT Radiology Routine Acute pain of left knee 1 Occurrences starting 05/10/2023 until 06/08/2024 [facility] Work Phone: Comment on above: 1 Occurrences starti ng 05/10/2023 until 06/08/2024 XR Knee - left 4 Views XR KNEE G ENERAL 4V AP BOTH/PA BOTH/LAT/MERC LEFT Radiology Routine Acute pain of left knee 05/10/2023 6:39 PM EDT [facility] Work Phone: [facility] Immunizations Immunization Date Immunization Notes Care Provider Leny [facility] 08-17-2020 tetanus toxoid, reduced diphtheria toxoid, and acellular pertussis vaccine, adsorbed Tunde Alberto MD Work Phone: [facility] Work Phone: 04-13-2010 tuberculin skin test ; purified protein derivative solution, intradermal Tunde Alberto MD Work Phone: [facility] 01-21-2008 influenza virus vaccine, unspecified formulation Tunde Alberto MD Work Phone: [facility] Work Phone: 07-22-1996 measles, mumps and rubella virus vaccine Tunde Alberto MD Work Phone: [facility] 10-12-1989 diphtheria, tetanus toxoids and pertussis vaccine Tunde Alberto MD Work Phone: [facility] 10-12-1989 trivalent poliovirus vaccine, live, oral Tuned Alberto MD Work Phone: [facility] 09-01-1988 haemophilus influenz ae type b vaccine, HbOC conjugate Tunde Alberto MD Work Phone: [facility] 11-06-1985 diphtheria, tetanus toxoids and pertussis vaccine Tunde Alberto MD Work Phone: [facility] 11-06-1985 trivalent poliovirus vaccine, live, oral Tunde Alberto MD Work Phone: [facility] 08-07-1985 measles, mumps and rubella virus vaccine Tunde Alberto MD Work Phone: [facility] 05-08-1985 tuberculin skin test ; purified protein derivative solution, intradermal Tunde Alberto MD Work Phone: [facility] 1984 diphtheria, tetanus toxoids and pertussis vaccine Tunde Alberto MD Work Phone: [facility] 1984 diphtheria, tetanus toxoids and pertussis vaccine Tunde Alberto MD Work Phone: [facility] 1984 trivalent poliovirus vaccine, live, oral Tunde Alberto MD Work Phone: [facility] 1984 diphtheria, tetanus toxoids and pertussis vaccine Tunde Alberto MD Work Phone: [facility] 1984 trivalent poliovirus vaccine, live, oral Tunde Alberto MD Work Phone: [facility] Payers Date Payer Category Payer Medicaid [id number] 2008 Medicaid [id number] Social History Date Type Detail Facility Start: 02-08-2022 End: 04-08-2024 Tobacco smoking status NHIS Ex-smoker [facility] inic Start: 10-14-1998 End: 10-15-2007 History of tobacco use Current smoker [facility] Start: 10-14-1998 End: 10-15-2007 History of tobacco use Cigarette Smoker [facility] Start: 02-08-2022 End: 04-08-2024 Tobacco use and exposure Smokeless tobacco non-user [facility] Start: 02-08-2022 End: 04-08-2024 Alcohol intake Current drinker of alcohol (finding) [facility] Start: 05-09-2011 Alcohol Comment rarely [facility] Start: 1984 [facility] Start: 03-02-2023 End: 03-05-2023 [facility] Start: 03-02-2023 End: 03-05-2023 [facility] [employer] [facility] Has the electric, [employer], oil, or water company threatened to shut off services in your home in past 12Mo No [facility] How often do you att end sikhism or hoahaoism services? Patient refused [facility] Do you belong to any clubs or organizations such as sikhism groups, unions, fraternal or athletic groups, or school groups? Yes [facility] Are you now , , , , never or living with a partner? Living with partner [facility] How often to you hav e a drink containing alcohol? Monthly or less [facility] How many standard dr inks containing alcohol do you have on a typical day? 1 or 2 [facility] How often do you hav e 6 or more drinks on 1 occasion? Never [facility] How hard is it for y ou to pay for the very basics like food, housing, medical care, and heating Not very hard [facility] Do you feel stress - tense, restless, nervous, or anxious, or unable to sleep at night because your mind is troubled all the time - these days [OSQ] Only a little [facility] (I/We) worried leighton er (my/our) food would run out before (I/we) got money to buy more. Never true [facility] Start: 08-24-2021 Gender identity Identifies as female gender (finding) [facility] Functional Status Date Assessment Result Facility 08-22-2014 Are you deaf, or do you have serious difficulty hearing No 08/22/2014 5:14 PM EDT Ly Mendez MA No [facility] 08-22-2014 Are you blind, or do you have serious difficulty seeing, even when wearing glasses No 08/22/2014 5:14 PM EDT Ly Mendez MA No [facility] 08-22-2014 Do you have serious difficulty walking or climbing stairs No 08/22/2014 5:14 PM EDT Ly Mendez MA No [facility] 08-22-2014 Do you have difficul ty dressing or bathing No 08/22/2014 5:14 PM EDT Ly Mendez MA No [facility] 08-22-2014 Because of a physica l, mental, or emotional condition, do you have difficulty doing errands alone such as visiting a physician's office or shopping No 08/22/2014 5:14 PM EDT Ly Mendez MA No [facility] Mental Status Date Assessment Result Facility 08-22-2014 Because of a physica l, mental, or emotional condition, do you have serious difficulty concentrating, remembering, or making decisions Yes 08/22/2014 5:14 PM EDT Ly Mendez MA Yes [facility] Clinical Notes 06-10-2014 to 08-15-2024 Maya Castillo, RT(R) - 08/15/2024 9:40 AM Angy Hodges APRN.[employer] DISPATCHER - 08/15/2024 9:09 AM Alexia Monet Tech - 05/28/2024 9:45 AM Khushboo Mtz APRN.[employer] WELL SERVICES DISPATCHER - 04/08/2024 3:22 PM EST Note Date & Type Note Facility 08-15-2024 History of Present illness Narrative Radiology Service Progress Note PATIENT NAME: Khanh Ortiz DATE OF SERVICE: August 15, 2024 TIME: 9:43 AM PATIENT IDENTITY VERIFICATION COMPLETED USING TWO (2) IDENTIFIERS: Name and Date of confirmed by patient verbally. FALL SCREENING: Has the patient had 2 falls in the last year or 1 fall with injury or currently using an Ambulatory Assistive Device (Walker, Cane, Wheelchair, Crutches, etc.)? No PATIENT GENDER DATA: Assigned female at . status: : No status: NO. PATIENT RELEVANT IMPLANT DATA REVIEWED: Not Applicable PATIENT PRESENTS WITH AN IMPLANTABLE OR ATTACHED FOOD PROCESSOR: No RADIOLOGY DEPARTMENT: General X-ray: Exam(s) Completed: Upper Extremity X-Ray(s): Wrist, left PERIPHERAL IV DATA: Not applicable SIGNED BY: RT Del(Taya) August 15, 2024 9:43 AM documented in this encounter [facility] 08-15-2024 Note HNO ID: [id number] Author: MAYA CASTLILO RT (R) Service: ? Author Type: Technologist Type: Progress Notes Filed: 08/15/2024 09:49 Note Text: Radiology Service Progress Note PATIENT NAME: Khanh Ortiz DATE OF SERVICE: August 15, 2024 TIME: 9:43 AM PATIENT IDENTITY VERIFICATION COMPLETED USING TWO (2) IDENTIFIERS: Name and Date of confirmed by patient verbally. FALL SCREENING: Has the patient had 2 falls in the last year or 1 fall with injury or currently using an Ambulatory Assistive Device (Walker, Cane, Wheelchair, Crutches, etc.)? No PATIENT GENDER DATA: Assigned female at . status: : No status: NO. PATIENT RELEVANT IMPLANT DATA REVIEWED: Not Applicable PATIENT PRESENTS WITH AN IMPLANTABLE OR ATTACHED FOOD PROCESSOR: No RADIOLOGY DEPARTMENT: General X-ray: Exam(s) Completed: Upper Extremity X-Ray(s): Wrist, left PERIPHERAL IV DATA: Not applicable SIGNED BY: RT Del(R) August 15, 2024 9:43 AM [facility] 08-15-2024 Note HNO ID: [id number] Author: ANGY ROLON APRN.OIL WELL SERVICES DISPATCHER Service: ? Author Type: Nurse Practitioner Type: Progress Notes Filed: 08/15/2024 09:27 Note Text: Chief Complaint Patient presents with: Wrist Pain: Left wrist HPI Khanh Ortiz is a 39 year old female who presents here today for Above Complaints. Patient presents for c/o left wrist pain.Patient reports as a teen she had similar cyst to left wrist and it would bust and eventually didn't come back. About 3 years ago the cyst came back but it is now growing and painful. Also has a spot that may be a second cyst. Past medical history, appointments, medications, allergies reviewed. Previous Medical History PAST MEDICAL HISTORY Diagnosis Date back pain Dysthymic disorder Depression (non-psychotic)/ANXIETY? BIPOLAR Endometriosis Fibromyalgia Migraine, unspecified, with intractable migraine, so stated, without mention of status migrainosus Migraine Moderate dysplasia of cervix (POLINA II) 02/06/2005 LEEP Neuropathy in Legs Previous Surgical History PAST SURGICAL HISTORY Procedure Laterality Date COLPOSCOPY ([facility]PT)_*FL 06/06/2004 CONIZATION CERVIX W/WO DANDC RPR ELTRD EXC 03/14/2005 moderate dysplasia DILATION AND CURETTAGE DXAND/THER NONOBSTETRIC Dilation AND curettage DILATION AND CURETTAGE DXAND/THER NONOBSTETRIC Dilation AND curettage PAST SURGICAL HISTORY OF 01/28/2020 right oopherectomy, tube removed and endometriosis adhesions. Laparscopic Family History FAMILY HISTORY Problem Relation Age of Onset Alcohol/Drug Mother ETOH Arthritis Mother Psychiatry Mother BIPOLAR Ovarian cancer Mother 51 ovarian Allergies Mother other (endometriosis) Mother Alcohol/Drug Father ETOH Heart Father Hypertension Brother Hypertension Maternal Grandmother Aneurysm Maternal Grandmother BRAIN ANEURYSM Heart Maternal Grandfather mi Breast Cancer Paternal Grandmother Eczema Daughter Emphysema Maternal Aunt Psychiatry Maternal Aunt DEPRESSION Heart Maternal Uncle mi Stroke Maternal Uncle Alcohol/Drug Maternal Uncle ETOH Patient Allergies ALLERGIES Allergen Reactions Effexor [Venlafaxin* Other: See Comments Hair started falling off Prozac [Fluoxetine * Mental Status Change Severely depressed Augmentin [Amoxicil* Rash Seasonal Allergies Other: See Comments Current Medications Current Outpatient Medications on File Prior to Visit Medication Sig fluticasone (FLONASE) 50 mcg/actuation nasal spray Use 2 Sprays in each nostril once daily. Rinse mouth after use. iv contrast (will be provided with radiology test) MRI Female Pelvis Inject, intravenously, once for 1 dose. No IV access, insert saline lock prior to the beginning of sedation, infusion, injection of imaging exam. Discontinue saline lock post exam. If Pt has a central line or IVAD, may access for administration according to line specific nursing protocol. Once exam is complete flush line and de-access according to line specific nursing protocol in the MR contrast administration guidelines link. cyclobenzaprine (FLEXERIL) [address] 1 tab per vagina up to TID prn pain/spasm, if no effect may try 2 tabs TID prn. MULTIVITAMIN ORAL Take by mouth once daily. glucosamine/chondr fowler A sod (OSTEO BI-FLEX ORAL) Take by mouth once daily. tiZANidine (ZANAFLEX) 4 mg tablet Take 1 tablet by mouth every 8 hours as needed (muscle spasms). albuterol HFA (VENTOLIN HFA) 90 mcg/actuation inhaler Inhale 2 Puffs as instructed every 4 hours as needed for Wheezing/Shortness of Breath. No current facility-administered medications on file prior to visit. Social History Social History Tobacco Use Smoking status: Former Current packs/day: 0.00 Types: Cigarettes Start date: 10/14/1998 Quit date: 10/15/2007 Years since quittin.8 Smokeless tobacco: Never Vaping Use Vaping status: Never Used Substance Use Topics Alcohol use: Yes Comment: rarely Drug use: Yes Types: Marijuana Comment: smoke occasionaly Review of Symptoms REVIEW OF SYSTEMS SEE HPI EXAM: BP 101/64 Pulse 67 Wt 55 kg (121 lb 4.1 oz) LMP 03/27/2024 (Exact Date) BMI 21.81 kg/m? General Appearance: Well appearing, alert, in no acute distress, well-hydrated, well nourished.. Musculoskeletal: Positive findings: joint location: on left wrist pain and painful movement, Ganglion left wrist. Health Maintenance List Depression Screening Never done Hepatitis C Screening Never done Hepatitis B Vaccine(1 of 3 - 19+ 3-dose series) Never done Covid-19 Vaccine( season) Never done Influenza Vaccine(1) due on 10/07/2024 Mammogram Screening due on 05/10/2025 Cervical Cancer Screening due on 03/02/2028 DTaP,Tdap,Td Vaccine(7 - Td or Tdap) due on 08/17/2030 HIV Screening Completed ASSESSMENT/PLAN: 1. Ganglion cyst of dorsum of left wrist - ICD9: 727.41, ICD10: M67.432 - CONSULT TO PLASTIC SURGERY - (more content not included)... [facility] 08-15-2024 History of Present illness Narrative Chief Complaint Patient presents with: Wrist Pain: Left wrist HPI Khanh Ortiz is a 39 year old female who presents here today for Above Complaints. Patient presents for c/o left wrist pain.Patient reports as a teen she had similar cyst to left wrist and it would bust and eventually didn't come back. About 3 years ago the cyst came back but it is now growing and painful. Also has a spot that may be a second cyst. Past medical history, appointments, medications, allergies reviewed. Previous Medical History PAST MEDICAL HISTORY Diagnosis Date back pain Dysthymic disorder Depression (non-psychotic)/ANXIETY? BIPOLAR Endometriosis Fibromyalgia Migraine, unspecified, with intractable migraine, so stated, without mention of status migrainosus Migraine Moderate dysplasia of cervix (POLINA II) 02/06/2005 LEEP Neuropathy in Legs Previous Surgical History PAST SURGICAL HISTORY Procedure Laterality Date COLPOSCOPY ([facility] HAND DEPT)_*FL 06/06/2004 CONIZATION CERVIX W/WO D&C RPR ELTRD EXC 03/14/2005 moderate dysplasia DILATION & CURETTAGE DX&/THER NONOBSTETRIC Dilation & curettage DILATION & CURETTAGE DX&/THER NONOBSTETRIC Dilation & curettage PAST SURGICAL HISTORY OF 01/28/2020 right oopherectomy, tube removed and endometriosis adhesions. Laparscopic Family History FAMILY HISTORY Problem Relation Age of Onset Alcohol/Drug Mother ETOH Arthritis Mother Psychiatry Mother BIPOLAR Ovarian cancer Mother 51 ovarian Allergies Mother other (endometriosis) Mother Alcohol/Drug Father ETOH Heart Father Hypertension Brother Hypertension Maternal Grandmother Aneurysm Maternal Grandmother BRAIN ANEURYSM Heart Maternal Grandfather mi Breast Cancer Paternal Grandmother Eczema Daughter Emphysema Maternal Aunt Psychiatry Maternal Aunt DEPRESSION Heart Maternal Uncle mi Stroke Maternal Uncle Alcohol/Drug Maternal Uncle ETOH Patient Allergies ALLERGIES Allergen Reactions Effexor [Venlafaxin* Other: See Comments Hair started falling off Prozac [Fluoxetine * Mental Status Change Severely depressed Augmentin [Amoxicil* Rash Seasonal Allergies Other: See Comments Current Medications Current Outpatient Medications on File Prior to Visit Medication Sig fluticasone (FLONASE) 50 mcg/actuation nasal spray Use 2 Sprays in each nostril once daily. Rinse mouth after use. iv contrast (will be provided with radiology test) MRI Female Pelvis Inject, intravenously, once for 1 dose. No IV access, insert saline lock prior to the beginning of sedation, infusion, injection of imaging exam. Discontinue saline lock post exam. If Pt has a central line or IVAD, may access for administration according to line specific nursing protocol. Once exam is complete flush line and de-access according to line specific nursing protocol in the MR contrast administration guidelines link. cyclobenzaprine (FLEXERIL) [address] 1 tab per vagina up to TID prn pain/spasm, if no effect may try 2 tabs TID prn. MULTIVITAMIN ORAL Take by mouth once daily. glucosamine/chondr fowler A sod (OSTEO BI-FLEX ORAL) Take by mouth once daily. tiZANidine (ZANAFLEX) 4 mg tablet Take 1 tablet by mouth every 8 hours as needed (muscle spasms). albuterol HFA (VENTOLIN HFA) 90 mcg/actuation inhaler Inhale 2 Puffs as instructed every 4 hours as needed for Wheezing/Shortness of Breath. No current facility-administered medications on file prior to visit. Social History Social History Tobacco Use Smoking status: Former Current packs/day: 0.00 Types: Cigarettes Start date: 10/14/1998 Quit date: 10/15/2007 Years since quittin.8 Smokeless tobacco: Never Vaping Use Vaping status: Never Used Substance Use Topics Alcohol use: Yes Comment: rarely Drug use: Yes Types: Marijuana Comment: smoke occasionaly Review of Symptoms REVIEW OF SYSTEMS SEE HPI EXAM: BP 101/64 Pulse 67 Wt 55 kg (121 lb 4.1 oz) LMP 03/27/2024 (Exact Date) BMI 21.81 kg/m General Appearance: Well appearing, alert, in no acute distress, well-hydrated, well nourished.. Musculoskeletal: Positive findings: joint location: on left wrist pain and painful movement, Ganglion left wrist. Health Maintenance List Depression Screening Never done Hepatitis C Screening Never done Hepatitis B Vaccine(1 of 3 - 19+ 3-dose series) Never done Covid-19 Vaccine(2023- season) Never done Influenza Vaccine(1) due on 10/07/2024 Mammogram Screening due on 05/10/2025 Cervical Cancer Screening due on 03/02/2028 DTaP,Tdap,Td Vaccine(7 - Td or Tdap) due on 08/17/2030 HIV Screening Completed ASSESSMENT/PLAN: 1. Ganglion cyst of dorsum of left wrist - ICD9: 727.41, ICD10: M67.432 - CONSULT TO PLASTIC SURGERY - XR WRIST GENERAL 3V PA/LAT/OBL LEFT Angy Rolon APRN.[employer] DISPATCHER documented in this encounter [facility] 05-28-2024 History of Present illness Narrative Radiology Service Progress Note PATIENT NAME: Khanh Ortiz DATE OF SERVICE: May 28, 2024 TIME: 10:36 AM PATIENT IDENTITY VERIFICATION COMPLETED USING TWO (2) IDENTIFIERS: Name and Date of confirmed by patient verbally. FALL SCREENING: Has the patient had 2 falls in the last year or 1 fall with injury or currently using an Ambulatory Assistive Device (Walker, Cane, Wheelchair, Crutches, etc.)? No PATIENT GENDER DATA: Assigned female at . status: : No status: NO. PATIENT RELEVANT IMPLANT DATA REVIEWED: Not Applicable PATIENT PRESENTS WITH AN IMPLANTABLE OR ATTACHED FOOD PROCESSOR: No RADIOLOGY DEPARTMENT: Mammography PERIPHERAL IV DATA: Not applicable SIGNED BY: Ranjan Baeza May 28, 2024 10:36 AM documented in this encounter [facility] 05-28-2024 Note HNO ID: [id number] Author: ALEXIA GATICA Tech Service: ? Author Type: Client Relationship Manager Type: Progress Notes Filed: 05/28/2024 10:36 Note Text: Radiology Service Progress Note PATIENT NAME: Khanh Ortiz DATE OF SERVICE: May 28, 2024 TIME: 10:36 AM PATIENT IDENTITY VERIFICATION COMPLETED USING TWO (2) IDENTIFIERS: Name and Date of confirmed by patient verbally. FALL SCREENING: Has the patient had 2 falls in the last year or 1 fall with injury or currently using an Ambulatory Assistive Device (Walker, Cane, Wheelchair, Crutches, etc.)? No PATIENT GENDER DATA: Assigned female at . status: : No status: NO. PATIENT RELEVANT IMPLANT DATA REVIEWED: Not Applicable PATIENT PRESENTS WITH AN IMPLANTABLE OR ATTACHED FOOD PROCESSOR: No RADIOLOGY DEPARTMENT: Mammography PERIPHERAL IV DATA: Not applicable SIGNED BY: Ranjan Baeza May 28, 2024 10:36 AM [facility] 05-13-2024 Telephone encounter Note Patient spoke to her insurance and they told her to go ahead with prior auth for either testing. She doesn't care if she gets the complete breast u/s or MRI. Asking what recommends? Please file order. Kristina Ridley RN [facility] 05-13-2024 Miscellaneous Notes Patient spoke to her insurance and they told her to go ahead with prior auth for either testing. She doesn't care if she gets the complete breast u/s or MRI. Asking what recommends? Please file order. Kristina Ridley RN documented in this encounter [facility] 05-10-2024 History of Present illness Narrative Radiology Service Progress Note PATIENT NAME: Khanh Ortiz DATE OF SERVICE: May 10, 2024 TIME: 11:35 AM PATIENT IDENTITY VERIFICATION COMPLETED USING TWO (2) IDENTIFIERS: Name and Date of confirmed by patient verbally. FALL SCREENING: Has the patient had 2 falls in the last year or 1 fall with injury or currently using an Ambulatory Assistive Device (Walker, Cane, Wheelchair, Crutches, etc.)? No PATIENT GENDER DATA: Assigned female at . status: : No status: NO. PATIENT RELEVANT IMPLANT DATA REVIEWED: Not Applicable PATIENT PRESENTS WITH AN IMPLANTABLE OR ATTACHED FOOD PROCESSOR: No RADIOLOGY DEPARTMENT: Mammography PERIPHERAL IV DATA: Not applicable SIGNED BY: Kev Rodriguez May 10, 2024 11:35 AM documented in this encounter [facility] 05-10-2024 Note HNO ID: [id number] Author: JUANCARLOS JAY Mammo Tech Service: ? Author Type: Client Relationship Manager Type: Progress Notes Filed: 05/10/2024 11:36 Note Text: Radiology Service Progress Note PATIENT NAME: Khanh Ortiz DATE OF SERVICE: May 10, 2024 TIME: 11:35 AM PATIENT IDENTITY VERIFICATION COMPLETED USING TWO (2) IDENTIFIERS: Name and Date of confirmed by patient verbally. FALL SCREENING: Has the patient had 2 falls in the last year or 1 fall with injury or currently using an Ambulatory Assistive Device (Walker, Cane, Wheelchair, Crutches, etc.)? No PATIENT GENDER DATA: Assigned female at . status: : No status: NO. PATIENT RELEVANT IMPLANT DATA REVIEWED: Not Applicable PATIENT PRESENTS WITH AN IMPLANTABLE OR ATTACHED FOOD PROCESSOR: No RADIOLOGY DEPARTMENT: Mammography PERIPHERAL IV DATA: Not applicable SIGNED BY: Juancarlos Jay [employer] May 10, 2024 11:35 AM [facility] 04-09-2024 Telephone encounter Note Patient notified of results, verbalizes understanding of instructions. Alexia Nicole RN [facility] 04-09-2024 Miscellaneous Notes Patient notified of results, verbalizes understanding of instructions. Alexia Nicole RN Please let the patient know that her vitamin D level is low and her iron levels also are low. I would like her to take 1000 units of vitamin D daily along with a daily iron supplement to increase those numbers. Khushboo Zavala APRN.CNP documented in this encounter [facility] 04-09-2024 Telephone encounter Note Please let the patient know that her vitamin D level is low and her iron levels also are low. I would like her to take 1000 units of vitamin D daily along with a daily iron supplement to increase those numbers. Khushboo Zavala APRN.CNP [facility] Work Phone: 04-08-2024 Note HNO ID: [id number] Author: KHUSHBOO ZAVALA APRN.[employer] SERVICES DISPATCHER Service: ? 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 Still get period: Yes, LMP 03/27/2024 cycles 17-20 with 4 days flow. 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 BIPOLAR Endometriosis Fibromyalgia Migraine, unspecified, with intractable migraine, so stated, without mention of status migrainosus Migraine Moderate dysplasia of cervix (POLINA II) 02/06/2005 LEEP Neuropathy in Legs PAST SURGICAL HISTORY Procedure Laterality Date COLPOSCOPY ([facility])_*FL 06/06/2004 CONIZATION CERVIX W/WO DANDC RPR ELTRD EXC 03/14/2005 moderate dysplasia DILATION AND CURETTAGE DXAND/THER NONOBSTETRIC Dilation AND curettage DILATION AND CURETTAGE DXAND/THER NONOBSTETRIC Dilation AND curettage PAST SURGICAL HISTORY OF 01/28/2020 right oopherectomy, tube removed and endometriosis adhesions. Laparscopic FAMILY HISTORY Problem Relation Age of Onset Alcohol/Drug Mother ETOH Arthritis Mother Psychiatry Mother BIPOLAR Ovarian cancer Mother 51 ovarian Allergies Mother other (endometriosis) Mother Alcohol/Drug Father ETOH Heart Father Hypertension Brother Hypertension Maternal Grandmother Aneurysm Maternal Grandmother BRAIN ANEURYSM Heart Maternal Grandfather mi Breast Cancer Paternal Grandmother Eczema Daughter Emphysema Maternal Aunt Psychiatry Maternal Aunt DEPRESSION Heart Maternal Uncle mi Stroke Maternal Uncle Alcohol/Drug Maternal Uncle ETOH SOCIAL HISTORY Social History Tobacco Use Smoking status: Former Current packs/day: 0.00 Types: Cigarettes Start date: 10/14/1998 Quit date: 10/15/2007 Years since quittin.4 Smokeless tobacco: Never Vaping Use Vaping status: Never Used Substance Use Topics Alcohol use: Yes Comment: rarely Drug use: Yes Types: Marijuana Comment: smoke occasionaly REVIEW OF SYSTEMS Abdomen: No abdominal pain,vomiting, diarrhea, or constipation. No early satiety, indigestion, or increased flatulence. Nausea and bloating with menses Bladder: No dysuria, gross hematuria, urinary frequency, urinary urgency, or incontinence. Breast: No breast lumps, nipple d/c, overlying skin changes, redness or skin retraction. Allergies and current medication updated:Yes SENSITIVE EXAM: The sensitive examination was discussed with the Patient or Patient's Authorized Collar Feller. As applicable, any other physician, advance practice provider, medical student, or other health professional student that will be observing or involved in the sensitive examination for educational or training purposes was discussed with the Patient or Authorized Collar Feller. The Patient or Authorized Collar Feller has agreed to proceed with the sensitive examination. (Sensitive examination includes inspection and/or palpation of the breasts, pelvis, prostate and anorectal regions). EXAM: BP 116/60 Ht 5' 2.52 (1.59m) Wt 120 lb 12.8 oz (54.8kg) LMP 03/27/2024 BMI 21.73 kg/(m2). GENERAL: pleasant, female in no apparent distress HEENT: Normocephalic, atraumatic, mucus membranes moist, and no lesions DERMATOLOGY: Normal, without lesions, non-icteric, and non-hirsute BREAST: soft, non-tender, symmetric, no dominant mass, normal nipple-areolar complex, no lymphadenopathy, and no nipple discharge CHEST: Normal inspiratory effort ABDOMEN: soft, non-tender, and no masses PELVIC: external genitalia normal, normal Bartholin's glands, urethra, Bevier's glands, no vulvar lesions, no cervical lesions, good vaginal support, physiologic discharge present, normal appearing perineal body and perianal region BIMANUAL: uterus normal size, shape and consistency, no adnexal masses, and Moderate tenderness RECTOVAGINAL: deferred. NEURO: alert and oriented x3,exam grossly non-focal EXTREMITIES: normal ASSESSMENT/PLAN: 1) Health maintenance: Pap/HPV up to date. Mammogram ordere (more content not included)... 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 Khanh is a 38 year old who presents for an annual gynecologic exam with complaints, pelvic pain. Still get period: Yes, LMP 03/27/2024 cycles 17-20 with 4 days flow. 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 BIPOLAR Endometriosis Fibromyalgia Migraine, unspecified, with intractable migraine, so stated, without mention of status migrainosus Migraine Moderate dysplasia of cervix (POLINA II) 02/06/2005 LEEP Neuropathy in Legs PAST SURGICAL HISTORY Procedure Laterality Date COLPOSCOPY ([facility])_*FL 06/06/2004 CONIZATION CERVIX W/WO D&C RPR ELTRD EXC 03/14/2005 moderate dysplasia DILATION & CURETTAGE DX&/THER NONOBSTETRIC Dilation & curettage DILATION & CURETTAGE DX&/THER NONOBSTETRIC Dilation & curettage PAST SURGICAL HISTORY OF 01/28/2020 right oopherectomy, tube removed and endometriosis adhesions. Laparscopic FAMILY HISTORY Problem Relation Age of Onset Alcohol/Drug Mother ETOH Arthritis Mother Psychiatry Mother BIPOLAR Ovarian cancer Mother 51 ovarian Allergies Mother other (endometriosis) Mother Alcohol/Drug Father ETOH Heart Father Hypertension Brother Hypertension Maternal Grandmother Aneurysm Maternal Grandmother BRAIN ANEURYSM Heart Maternal Grandfather mi Breast Cancer Paternal Grandmother Eczema Daughter Emphysema Maternal Aunt Psychiatry Maternal Aunt DEPRESSION Heart Maternal Uncle mi Stroke Maternal Uncle Alcohol/Drug Maternal Uncle ETOH SOCIAL HISTORY Social History Tobacco Use Smoking status: Former Current packs/day: 0.00 Types: Cigarettes Start date: 10/14/1998 Quit date: 10/15/2007 Years since quittin.4 Smokeless tobacco: Never Vaping Use Vaping status: Never Used Substance Use Topics Alcohol use: Yes Comment: rarely Drug use: Yes Types: Marijuana Comment: smoke occasionaly REVIEW OF SYSTEMS Abdomen: No abdominal pain,vomiting, diarrhea, or constipation. No early satiety, indigestion, or increased flatulence. Nausea and bloating with menses Bladder: No dysuria, gross hematuria, urinary frequency, urinary urgency, or incontinence. Breast: No breast lumps, nipple d/c, overlying skin changes, redness or skin retraction. Allergies and current medication updated:Yes SENSITIVE EXAM: The sensitive examination was discussed with the Patient or Patient's Authorized Collar Feller. As applicable, any other physician, advance practice provider, medical student, or other health professional student that will be observing or involved in the sensitive examination for educational or training purposes was discussed with the Patient or Authorized Collar Feller. The Patient or Authorized Collar Feller has agreed to proceed with the sensitive examination. (Sensitive examination includes inspection and/or palpation of the breasts, pelvis, prostate and anorectal regions). EXAM: BP 116/60 Ht 5' 2.52 (1.59m) Wt 120 lb 12.8 oz (54.8kg) LMP 03/27/2024 BMI 21.73 kg/(m^2). GENERAL: pleasant, female in no apparent distress HEENT: Normocephalic, atraumatic, mucus membranes moist, and no lesions DERMATOLOGY: Normal, without lesions, non-icteric, and non-hirsute BREAST: soft, non-tender, symmetric, no dominant mass, normal nipple-areolar complex, no lymphadenopathy, and no nipple discharge CHEST: Normal inspiratory effort ABDOMEN: soft, non-tender, and no masses PELVIC: external genitalia normal, normal Bartholin's glands, urethra, Bevier's glands, no vulvar lesions, no cervical lesions, good vaginal support, physiologic discharge present, normal appearing perineal body and perianal region BIMANUAL: uterus normal size, shape and consistency, no adnexal masses, and Moderate tenderness RECTOVAGINAL: deferred. NEURO: alert and oriented x3,exam grossly non-focal EXTREMITIES: normal ASSESSMENT/PLAN: 1) Health maintenance: Pap/HPV up to date. Mammogram ordered. Nutrition, exercise and routine health maintenance exams reviewed. Calcium/Vitamin D supplementation information provided. Colon cancer screening: start at age 45 2) Contraception: tubal sterilization. Contraceptive options reviewed and information provided. 3) STD screening: Declined STD check. 4) Follow up one year or sooner as needed 5) Fatigue- labs ordered Khushboo Zavala APRN.CNP documented in this encounter [facility] 10-16-2023 Telephone encounter Note The following approved medication requests have been transmitted electronically. Requested Prescriptions Pending Prescriptions Disp Refills fluticasone (FLONASE) 50 mcg/actuation nasal spray 16 g 5 Sig: Use 2 Sprays in each nostril once daily. Rinse mouth after use. Alexis Gibson APRN.CNP [facility] 10-16-2023 Miscellaneous Notes The following approved medication requests have been transmitted electronically. Requested Prescriptions Pending Prescriptions Disp Refills fluticasone (FLONASE) 50 mcg/actuation nasal spray 16 g 5 Sig: Use 2 Sprays in each nostril once daily. Rinse mouth after use. Alexis Gibson APRN.CNP Prescription Refill Information The patient has been identified by name and date of : Yes Caregiver verified no other encounters exist for this prescription request: Yes Caregiver confirmed with patient/requestor that no other refills are due, in the near future, with this provider at this time: No The last office visit in the department: 05/10/23 Does the patient have a future office visit with this provider/department: No Requested Prescriptions Pending Prescriptions Disp Refills fluticasone (FLONASE) 50 mcg/actuation nasal spray 16 g 5 Sig: Use 2 Sprays in each nostril once daily. Rinse mouth after use. Ly Mendez MA October 16, 2023 10:31 AM documented in this encounter [facility] 10-16-2023 Telephone encounter Note Prescription Refill Information The patient has been identified by name and date of : Yes Caregiver verified no other encounters exist for this prescription request: Yes Caregiver confirmed with patient/requestor that no other refills are due, in the near future, with this provider at this time: No The last office visit in the department: 05/10/23 Does the patient have a future office visit with this provider/department: No Requested Prescriptions Pending Prescriptions Disp Refills fluticasone (FLONASE) 50 mcg/actuation nasal spray 16 g 5 Sig: Use 2 Sprays in each nostril once daily. Rinse mouth after use. Ly Mendez MA October 16, 2023 10:31 AM [facility] 07-26-2023 History of Present illness Narrative Images from the original note were not included. Episode Visit Count: 1 Therapist That Will Accept/Oversee The Plan Of Care: Kevin Green PT Start of Care Date: 07/26/23 Onset Date: 05/03/23 (Pt reports chronic and congenital problems in both feet but unexplained pain began in L ankle 2-3 months ago) Plan of Care Certification Date: 07/26/23 Next Certification Due Date: 09/06/23 Patient Identified by Name and Date of : Yes REHABILITATION AND SPORTS THERAPY PHYSICAL THERAPY EVALUATION PLAN OF CARE: Assessment: Khanh Ortiz presents with chief complaint of B ankle and foot pain that interferes with stair negotiation, walking, standing (especially prolonged walking and standing) . She presents with impairments in ADL's, balance, gait, independence in exercise, overall function, range of motion, strength, symptom management, and tissue tenderness. PROMIS (Patient-Reported Outcomes Measurement Information System) scores were reviewed and identified as a rehabilitation concern. Prognosis for therapy is Good due to: current objective clinical presentation, good overall health status, Prognosis may be limited due to chronic nature of impairments, limited tolerance to activity. She will benefit from skilled therapy services to meet the goals established for this plan of care as noted below. Goals for Episode of Care: created on 07/26/23 through 09/06/23 [place] in home exercise program. Patient will decrease pain rating by 2 points to meet minimal clinical important difference for numeric pain rating scale. Patient will increase active ROM of L ankles to WFL and pain-free to allow pt to to improve performance of ADLs. Patient will demonstrate increase in L ankle strength to 5/5 and WFL during manual muscle testing in order to improve function for prolonged standing and walking to >10 minutes. Perform stairs, standing and walking with decreased report of symptoms/pain in 6 weeks. Normal gait. Reciprocal stair negotiation. Patient Goals: decrease pain Planned Interventions, Frequency, and Duration: Current Frequency: 2x/week Duration: 6 weeks Total Number of Visits Planned: 12 Planned Treatment Interventions: Therapeutic exercise (95037), Neuromuscular re-education (34546), Manual therapy (95378), Therapeutic activities (85498), Self-mcc management ([id number]), Gait Training (78470), Patient/Family/Caregiver Education, Body Mechanics Training, Functional training PLAN FOR NEXT VISIT: Review, correct and progress HEP to tolerance. Continue with therex to address L ankle ROM, strength and proprioception to decrease pain and facilitate a return to prior functional level. Consisder a continuation of PNE started today. Patient demonstrates good understanding of plan of care and treatment. The above goals and plan of care were discussed and agreed upon by patient/family. SUBJECTIVE: Pt reports constant pain in L ankle that varies in intensity. She locates pain throughout L foot and ankle but specifically reports that pain began at lateral aspect of L ankle and this included swelling and bruising at lateral L ankle for 2 weeks without explanation. She reports that pain worsens as day progresses. 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) Home Environment Patient Lives With: Family, Significant Other (daughter(15 years old) and fiance) Assistance Available: PRN Home Type: Multi-Level Entry To Home: Stairs, With Rail Number Of Stairs Into Home: 3 Number Of Stairs To Bed/Bath: 14 (pt reports that steps are old and steep) Stairs to Bed/Bath with: Unilateral Rail Intake Information: Prescription present Previous Treatment: None Pain: Pain Pain Level: 7 Pain Location: Ankle - Left, Foot - Left Description: Aching, Dull Frequency: Continuous (constant but varies in intensity) Detailed Pain Score: Yes Worst Pain Level: 9 Average Pain Level: 7 Best Pain Level: 3 Post Treatment Pain Post Treatment Pain Level: No Change PROMIS Scales 07/23/2023 Higher is Better Phys Func - Score 40 (mild dysfunction) Phys Func - Percentile 16 Self-Eff Symptom - Score 44 (Average) Self-Eff Symptom - Percentile 27 T-scores: mean of general population = 50. 5 points is clinically meaningfully difference Percentiles provide an indication of how the patient's score ranks in relation to the general population. Higher percentile rankings indicate better function/quality of life. 50th percentile is the average of the general population and indicates half of respondents had a worse score. OBJECTIVE MEASURES WITH LEVEL OF FUNCTION: Posture / Alignment R LE Anatomical Alignment Weight-Bearing: (Normal) L LE Anatomical Alignment Weight-Bearing: L Genu valgus, L Low arch height Ankle Observations R Ankle Palpation Tenderness: (hyper-sensitive throughout medial and lateral aspects of ankle) L Ankle Palpation Tenderness: (hyper-sensitive throughout medial and lateral aspects of ankle) R Foot Observations: forefoot adduction LE AROM R LE AROM: supine L LE AROM: supine R Ankle Dorsiflexion: 3 Degrees R Ankle Plantar Flexion: 62 Degrees R Ankle Inversion: 16 (rests in 25 degrees of inversion and moves to 41 degrees. On repeat exam, pt resting position is neutral without forefoot adducted position that was present initially.) R Ankle Eversion: 25 L Ankle Dorsiflexion: 3 Degrees L Ankle Plantar Flexion: 59 Degrees L Ankle Inversion: 38 L Ankle Eversion: 14 LE Strength R LE Strength: Pt reports that her standing and walking tolerances are limited to 10 minutes. MMT deferred secondary to pt's hyper-sensitivity to touch. Her reported functional limitations indicate that she will certainly benefit from increased functional strength of B ankles and LEs. L LE Strength: Pt reports that her standing and walking tolerances are limited to 10 minutes. MMT deferred secondary to pt's hyper-sensitivity to touch. Her reported functional limitations indicate that she will certainly benefit from increased functional strength of B ankles and LEs. Special Tests - Hip and Spine Hip and Spine Special Tests: SLR Test SLR Test: Right Negative, Left Negative (symmetrically tight) DVT Screening/Testing Screening/Testing: Homans Ricardo's Sign: Right Negative, Left Negative Gait Gait Observation: Pt has slow and cautious gait with R toe-in. Vitals BP: 104/69 Pulse: 74 Education: Education Learning Preferences: Demonstration, Explanation, Performance, Printed Materials Barriers: None Learning/educational needs: Plan of Care, Home exercise program, Gait Training, Body Mechanics Education Provided: Yes, see treatment interventions for education provided Education Provided To: Patient Education Mode/Type: Demonstration, Explanation/Discussion, Performance, Literature/Printed Materials Response to Education/Teach Back: States/Identifies, Return Demonstration, Requires Review/Additional Education TREATMENT: PT Treatment Interventions: Therapeutic Exercise, Neuromuscular Re-Education Evaluation Therapeutic Exercise: 1: Pt was edcuated extensively on the anatomy of foot/ankle complex, possible etiology of symptoms and rationale for proposed plan of care recommendations. She was advised to back off or stop any exercise that causes increased pain. She was educated on the proper technique and intensity of therex. 2: *long sitting towel stretch for L calf 3x30 seconds 3: *long sitting L ankle AROM for ankle/forefoot inversion and eversion 2x10 4: *seated L ankle alphabet tracing A-Z x1 Skilled Intervention: Patient was educated in proper exercise technique and purpose for exercises. Reviewed and educated patient on additions/changes for home exercise program as above (*). Skilled judgment was used in selection of appropriate interventions. Provided written instruction for home exercise program to facilitate proper performance and compliance. Correct performance of therapeutic exercises was facilitated with verbal, visual, and tactile cuing. Patient education as noted. Neuromuscular Re-Education: 1: PNE: Pt was introduced to the neuroscience of pain and how this training may positively impact her situation. Pt shared her previous experience with cognitive therapy and she was not pleased. Despite this, she is open to formal PNE training. Pt was introduced to many of the concepts of formal PNE training and educated on the role of this training in her recovery. Skilled Intervention: Patient education as noted. Billing * Evaluation Moderate Complexity: 1 Unit Therapeutic Exercise Treatment Minutes: 16 Neuromuscular Re-Education Treatment Minutes: 15 Skilled Treatment Time Minutes (timed and untimed codes): 61 Total Session Time (minutes): 61 Session Start Time : 0859 Session Stop Time : 1000 Kevin Green PT Program_ID:[id number] Access Code: [email or web address] URL: [email or web address] Date: 07-26-2023 Prepared By: Kevin Green Program Notes Exercises - Long Sitting Calf Stretch with Strap - 3 x daily - 7 x weekly - sets - 3 reps - Supine Ankle Inversion Eversion AROM - 3 x daily - 7 x weekly - 2 sets - 10 reps - Seated Ankle Alphabet - 3 x daily - 7 x weekly - sets - 1 reps documented in this encounter [facility] 05-30-2023 Instructions Manjeet Maurice - 05/30/2023 11:57 AM EDT Powerstep Original Full length. Can purchase at [facility] and boots,shoes and more here in [place], [employer] in [place] or [place]. Also can find in [place] in [facility]. Powersteps can also be purchased online, starting around $45.00 If you have a metatarsal or dancer pad for your feet apply the pad directly to the insole so you can interchange between your shoes. Find a shoe with a removable insole and take this out and replace with your powerstep insole. Always bring powersteps with you when shopping for shoes so that you can make sure that everything fits well together documented in this encounter [facility] 05-30-2023 History of Present illness Narrative Images from the original note were not included. Consultation requested by Dr. Martinez for an opinion regarding left ankle pain. My final recommendations will be communicated back to the requesting physician by way of shared Medical record or letter to requesting physician via US mail. Initial Podiatric Office Visit: Chief Complaint: This 38 year old female who presents with chief complaint:left foot and ankle pain HPI Patient presents to clinic for evaluation of left lower extremity. Complains of pain to the plantar aspect of left foot radiating to the lateral aspect of left ankle extending up to her leg. She states that even a few days ago, she did have bruising to the lateral aspect of left ankle for no specific reason. She has no recent injury but does report that 10 years ago, she was walking down steps and she fell resulting in her foot rolling inward She recently saw Cleo Martinez who placed patient on mobic. She has yet to get. She will take ibuprofen and that does help She presents wearing sandals. She states that most of the times she is wearing new balance PAIN EVALUATION 05/25/2023 1102 Pain Level: 7 Pain Location: Foot-Left Duration Units: Months Frequency: Intermittent Intervention/Comfort measure: Medication;Reposition;Relaxation HBA1CCynthia (%) Date Value 03/25/2010 5.2 PCP: Tunde Alberto MD PAST MEDICAL HISTORY Diagnosis Date back pain Dysthymic disorder Depression (non-psychotic)/ANXIETY? BIPOLAR Endometriosis Fibromyalgia Migraine, unspecified, with intractable migraine, so stated, without mention of status migrainosus Migraine Moderate dysplasia of cervix (POLINA II) 02/06/2005 LEEP Neuropathy in Legs Current Outpatient Medications Medication Sig meloxicam (MOBIC) 15 mg tablet Take 1 tablet by mouth once daily. With food. Take as needed for pain and inflammation. cyclobenzaprine (FLEXERIL) [address] 1 tab per vagina up to TID prn pain/spasm, if no effect may try 2 tabs TID prn. MULTIVITAMIN ORAL Take by mouth once daily. glucosamine/chondr fowler A sod (OSTEO BI-FLEX ORAL) Take by mouth once daily. fluticasone (FLONASE) 50 mcg/actuation nasal spray Use 2 Sprays in each nostril once daily. Rinse mouth after use. tiZANidine (ZANAFLEX) 4 mg tablet Take 1 tablet by mouth every 8 hours as needed (muscle spasms). albuterol HFA (VENTOLIN HFA) 90 mcg/actuation inhaler Inhale 2 Puffs as instructed every 4 hours as needed for Wheezing/Shortness of Breath. iv contrast (will be provided with radiology test) MRI Female Pelvis Inject, intravenously, once for 1 dose. No IV access, insert saline lock prior to the beginning of sedation, infusion, injection of imaging exam. Discontinue saline lock post exam. If Pt has a central line or IVAD, may access for administration according to line specific nursing protocol. Once exam is complete flush line and de-access according to line specific nursing protocol in the MR contrast administration guidelines link. Surgical Lubricant Jelly gel For MRI Female Pelvis, MRI department to provide. Administer intra-vaginal Surgilube immediately prior the MRI procedure (total amount to patient toleranace). No current facility-administered medications for this visit. ALLERGIES Allergen Reactions Effexor [Venlafaxin* Other: See Comments Hair started falling off Prozac [Fluoxetine * Mental Status Change Severely depressed Augmentin [Amoxicil* Rash Seasonal Allergies Other: See Comments PAST SURGICAL HISTORY Procedure Laterality Date COLPOSCOPY ([facility]PT)_*FL 06/06/2004 CONIZATION CERVIX W/WO D&C RPR ELTRD EXC 03/14/2005 moderate dysplasia DILATION & CURETTAGE DX&/THER NONOBSTETRIC Dilation & curettage DILATION & CURETTAGE DX&/THER NONOBSTETRIC Dilation & curettage PAST SURGICAL HISTORY OF 01/28/2020 right oopherectomy, tube removed and endometriosis adhesions. Laparscopic FAMILY HISTORY Problem Relation Age of Onset Alcohol/Drug Mother ETOH Arthritis Mother Psychiatry Mother BIPOLAR Ovarian cancer Mother 51 ovarian Allergies Mother other (endometriosis) Mother Alcohol/Drug Father ETOH Heart Father Hypertension Brother Hypertension Maternal Grandmother Aneurysm Maternal Grandmother BRAIN ANEURYSM Heart Maternal Grandfather mi Breast Cancer Paternal Grandmother Eczema Daughter Emphysema Maternal Aunt Psychiatry Maternal Aunt DEPRESSION Heart Maternal Uncle mi Stroke Maternal Uncle Alcohol/Drug Maternal Uncle ETOH Social History Tobacco Use Smoking status: Former Years: 9 Types: Cigarettes Quit date: 10/15/2007 Years since quittin.6 Smokeless tobacco: Never Vaping Use Vaping Use: Never used Substance Use Topics Alcohol use: Yes Comment: rarely Drug use: Yes Types: Marijuana Comment: smoke occasionaly REVIEW OF SYSTEMS GENERAL: Negative for Malaise, significant weight loss, fever RESPIRATORY: Negative for cough, wheezing and shortness of breath CARDIOVASCULAR: Negative for chest pain, leg swelling and palpitations GI: Negative for abdominal discomfort, blood in stools or black stools and change in bowel habits : Negative for dysuria, frequency and incontinence MUSCULOSKELETAL: Negative for joint pain or swelling, back pain, and muscle pain. SKIN: Negative for lesions, rash, and itching. HEMATOLOGY/LYMPHOLOGY Negative for prolonged bleeding, bruising easily, and swollen nodes. ENDOCRINE: Negative for cold or heat intolerance, polyuria, polydipsia and goiter. NEURO: negative Physical Exam: Constitutional: Pt is a well developed 38 year old female who is alert, oriented and cooperative Eyes: Following during examination. No redness or drainage. Respiratory: RR normal and nonlabored. Even breathing. No evidence of distress or shortness of breath. Psychology: Patient is engaged during conversation. Normal affect and mood. Does not appear depressed or anxious during encounter. Vascular: Dorsalis pedis and posterior tibial pulses palpable as b/l Capillary Fill time < 5 seconds to digits 1-5 b/l Skin temperature warm to warm proximal to distal b/l Hair growth present to digits Neurological: intact light touch/epicritic sensation b/l intact protective sensation no significant neurological deficits Dermatological: Nails 1-5 b/l appear normal. Webspaces clean and dry 1-4 b/l. Skin appears well hydrated and supple. good color, texture, turgor. No open lesions present. No callosities present. Skin color is slightly discolored to b/l feet. Skin temperature is warm to cool. Musculoskeletal/Orthopaedic: Patient has pain to palpation of left medial and lateral ankle and pain along achilles tendon Foot type is cavus on right and neutral left AJ ROM is full with knee extended and flexed 1st MPJ is full when loaded and no pain or crepitus are noted with ROM. MTJ, STJ are full and free of pain and crepitus. +5/5 muscle strength dorsiflexion, plantarflexion, inversion, eversion right. 3/5 left Radiographs: past xrays reviewed. No acute fracture. ASSESSMENT: (M25.572) Acute left ankle pain (primary encounter diagnosis) (M21.6X9) Acquired pes cavus (M21.371) Right foot drop (M76.62) Tendonitis, Achilles, left (G90.50) RSD (reflex sympathetic dystrophy) PLAN: 1. History and physical examination performed. 2. XR reviewed with patient and interpreted today 3. Discussed left ankle pain. I am going to have patient try inserts and I will make referral to physical therapy. I do have concerns that given her color changes to skin, decreased temperature of foot and history of trauma, could this pain be related to RSD. I will make referral to dr. Terrell for evaluation. Manjeet Maurice DPM Podiatry [address] [facility] [id number] Dept: [phone] Dept AMB ROOMING INTAKE FLOWSHEET DATA Pain Pain Level: 7 Pain Location: Foot-Left Duration Units: Months Frequency: Intermittent Intervention/Comfort measure: Medication, Reposition, Relaxation Patient presents with: Left Foot - New, Pain, Numbness, Swelling Jayne Henderson LPN documented in this encounter [facility] 05-15-2023 Miscellaneous Notes Lab orders have been placed. Thank you. Cleo Martinez APRN.[employer] DISPATCHER Patient notified of results, verbalizes understanding of instructions. Pt stated to put in the autoimmune labs. Yuli Ridley LPN Can you please call the patient and let her know that I reviewed her x-rays and ultrasound results. Ultrasound of lower legs were normal. X-rays of the left knee and foot were normal as well. I would still recommend that she keep upcoming appointment with podiatry. She may consider completing some autoimmune lab work for further evaluation. Please let me know what she prefers. Thank you. Cleo Martinez APRN.OIL WELL SERVICES DISPATCHER documented in this encounter [facility] 05-11-2023 History of Present illness Narrative Radiology Service Progress Note PATIENT NAME: Khanh Ortiz DATE OF SERVICE: May 11, 2023 TIME: 4:34 PM PATIENT IDENTITY VERIFICATION COMPLETED USING TWO (2) IDENTIFIERS: Name and Date of confirmed by patient verbally. FALL SCREENING: Has the patient had 2 falls in the last year or 1 fall with injury or currently using an Ambulatory Assistive Device (Walker, Cane, Wheelchair, Crutches, etc.)? No PATIENT GENDER DATA: Female. status: : No status: NO. PATIENT RELEVANT IMPLANT DATA REVIEWED: Yes PATIENT PRESENTS WITH AN IMPLANTABLE OR ATTACHED FOOD PROCESSOR: No RADIOLOGY DEPARTMENT: Ultrasound PERIPHERAL IV DATA: Not applicable SIGNED BY: Seun Moore TECHNOLOGIST May 11, 2023 4:34 PM documented in this encounter [facility] 05-10-2023 History of Present illness Narrative Radiology Service Progress Note PATIENT NAME: Khanh Ortiz DATE OF SERVICE: May 10, 2023 TIME: 6:37 PM PATIENT IDENTITY VERIFICATION COMPLETED USING TWO (2) IDENTIFIERS: Name and Date of confirmed by patient verbally. FALL SCREENING: Has the patient had 2 falls in the last year or 1 fall with injury or currently using an Ambulatory Assistive Device (Walker, Cane, Wheelchair, Crutches, etc.)? No PATIENT GENDER DATA: Female. status: : No status: NO. PATIENT RELEVANT IMPLANT DATA REVIEWED: Yes PATIENT PRESENTS WITH AN IMPLANTABLE OR ATTACHED FOOD PROCESSOR: No RADIOLOGY DEPARTMENT: General X-ray: Exam(s) Completed: Lower Extremity X-Ray(s): Knee, AP / Lat / Tunne / Merchant Left and Foot, Left PERIPHERAL IV DATA: Not applicable SIGNED BY: Niharika Lopez, RT(R) May 10, 2023 6:37 PM documented in this encounter [facility] 05-10-2023 Instructions Cleo Martinez APRN.LALITA - 05/10/2023 5:58 PM EDT Get xrays completed Complete ultrasound Schedule consult with podiatry, may consider [place] [facility] [place] Continue supportive care at home, Meloxicam 15 mg, elevate, and ice Follow up pending testing documented in this encounter [facility] 05-10-2023 History of Present illness Narrative This is a 38 year old female who presents today with: Patient presents with: Acute Visit: Left leg HISTORY OF PRESENT ILLNESS: Khanh Ortiz is a 38 year old female. Patient presents with: Acute Visit: Left leg Here in the office for left foot, ankle, and leg pain. Had an old injury 10 years, fell down the steps. This pain has been constant but seemed to increase in the past 3 months. Constant dull throb, sharp with certain movements. Made worse with standing. Has noticed left ankle swelling with bruising, no recent injury. Has tried Meloxicam, compression, and elevate without much improvement. Refers that her ankles have been very tender since she was a child. History of Right Foot Drop, follows with Neurology. History of Neuropathy, numbness/tingling, bilateral toes. PAST MEDICAL HISTORY: PAST MEDICAL HISTORY Diagnosis Date back pain Dysthymic disorder Depression (non-psychotic)/ANXIETY? BIPOLAR Endometriosis Fibromyalgia Migraine, unspecified, with intractable migraine, so stated, without mention of status migrainosus Migraine Moderate dysplasia of cervix (POLINA II) 02/06/2005 LEEP Neuropathy in Legs PAST SURGICAL HISTORY Procedure Laterality Date COLPOSCOPY ([facility]PT)_*FL 06/06/2004 CONIZATION CERVIX W/WO D&C RPR ELTRD EXC 03/14/2005 moderate dysplasia DILATION & CURETTAGE DX&/THER NONOBSTETRIC Dilation & curettage DILATION & CURETTAGE DX&/THER NONOBSTETRIC Dilation & curettage PAST SURGICAL HISTORY OF 01/28/2020 right oopherectomy, tube removed and endometriosis adhesions. Laparscopic ALLERGIES Effexor [Venlafaxine Hcl], Prozac [Fluoxetine Hcl], Augmentin [Amoxicillin-Pot Clavulanate], and Seasonal Allergies MEDICATIONS Current Outpatient Medications Medication Sig iv contrast (will be provided with radiology test) MRI Female Pelvis Inject, intravenously, once for 1 dose. No IV access, insert saline lock prior to the beginning of sedation, infusion, injection of imaging exam. Discontinue saline lock post exam. If Pt has a central line or IVAD, may access for administration according to line specific nursing protocol. Once exam is complete flush line and de-access according to line specific nursing protocol in the MR contrast administration guidelines link. Surgical Lubricant Jelly gel For MRI Female Pelvis, MRI department to provide. Administer intra-vaginal Surgilube immediately prior the MRI procedure (total amount to patient toleranace). cyclobenzaprine (FLEXERIL) [address] 1 tab per vagina up to TID prn pain/spasm, if no effect may try 2 tabs TID prn. MULTIVITAMIN ORAL Take by mouth once daily. glucosamine/chondr fowler A sod (OSTEO BI-FLEX ORAL) Take by mouth once daily. fluticasone (FLONASE) 50 mcg/actuation nasal spray Use 2 Sprays in each nostril once daily. Rinse mouth after use. tiZANidine (ZANAFLEX) 4 mg tablet Take 1 tablet by mouth every 8 hours as needed (muscle spasms). meloxicam (MOBIC) 15 mg tablet Take 1 tablet by mouth once daily. With food. Take as needed for pain and inflammation. albuterol HFA (VENTOLIN HFA) 90 mcg/actuation inhaler Inhale 2 Puffs as instructed every 4 hours as needed for Wheezing/Shortness of Breath. No current facility-administered medications for this visit. FAMILY HISTORY Problem Relation Age of Onset Alcohol/Drug Mother ETOH Arthritis Mother Psychiatry Mother BIPOLAR Ovarian cancer Mother 51 ovarian Allergies Mother other (endometriosis) Mother Alcohol/Drug Father ETOH Heart Father Hypertension Brother Hypertension Maternal Grandmother Aneurysm Maternal Grandmother BRAIN ANEURYSM Heart Maternal Grandfather mi Breast Cancer Paternal Grandmother Eczema Daughter Emphysema Maternal Aunt Psychiatry Maternal Aunt DEPRESSION Heart Maternal Uncle mi Stroke Maternal Uncle Alcohol/Drug Maternal Uncle ETOH Social History Tobacco Use Smoking status: Former Years: 9 Types: Cigarettes Quit date: 10/15/2007 Years since quittin.5 Smokeless tobacco: Never Vaping Use Vaping Use: Never used Substance Use Topics Alcohol use: Yes Comment: rarely Drug use: Yes Types: Marijuana Comment: occasionaly REVIEW OF SYSTEMS GENERAL: No weight loss, malaise or fevers/chills HEENT: Negative for frequent or significant headaches, No changes in hearing or vision. NECK: Negative for lumps, goiter, pain and significant neck swelling RESPIRATORY: Negative for cough, hemoptysis, wheezing, dyspnea or shortness of breath CARDIOVASCULAR: Negative for chest pain, leg swelling, orthopnea, or palpitations GI: No nausea, vomiting, or diarrhea/constipation. No hematochezia/melena. No heartburn or reflux symptoms. : No history of dysuria, frequency or incontinence MUSCULOSKELETAL: + Left knee, leg, ankle/foot pain SKIN: Negative for lesions, rash, and itching ENDOCRINE: Negative for cold or heat intolerance, polyuria, polydipsia and goiter NEURO: No history of headaches, syncope, paralysis, seizures or tremors MOOD: Negative for depression, anxiety, or suicidal ideation. EXAM: BP 110/70 Pulse 77 Resp 16 Wt 53.5 kg (118 lb) LMP 04/26/2023 (Approximate) SpO2 98% BMI 21.58 kg/m PHYSICAL EXAM: General Appearance: Well appearing, alert, in no acute distress, well-hydrated, well nourished. Head: Normocephalic, no masses, lesions, tenderness or abnormalities. Eyes: Anicteric sclera. Extraocular movements are intact. Extremities: Discoloration noted to feet bilaterally, cool to touch, negative Homans' sign. Good pedal pulses. Musculoskeletal: + left ankle tender to touch, mild swelling noted medial aspect, no erythema or ecchymosis noted. Left knee full ROM, tenderness noted along the lateral aspect, mild swelling. Negative Valgus/Varus. Good muscle strength of lower extremities. Peripheral Pulses: Normal, Capillary refill <2secs, strong peripheral pulses, Pulses palpable. Neurologic: Gait normal. Sensation grossly intact. ASSESSMENT/PLAN: 1. Foot pain, left - ICD9: 729.5, ICD10: M79.672 (primary diagnosis) - Get xrays completed - Continue supportive care at home. - Elevate, ice, and Meloxicam - XR FOOT GENERAL 3V AP/LAT/OBL LEFT - CONSULT TO PODIATRY - MELOXICAM 15 MG TABLET 2. Acute pain of left knee - ICD9: 719.46, ICD10: M25.562 - XR KNEE GENERAL 4V AP BOTH/PA BOTH/LAT/MERC LEFT - MELOXICAM 15 MG TABLET 3. Acute bilateral ankle pain - ICD9: 719.47, 338.19, ICD10: M25.571, M25.572 - XR FOOT GENERAL 3V AP/LAT/OBL LEFT - CONSULT TO PODIATRY - MELOXICAM 15 MG TABLET 4. Discoloration of skin of foot - ICD9: 709.00, ICD10: L81.9 - US DVT LOWER BILATERAL - CONSULT TO PODIATRY 5. History of right foot drop - ICD9: V13.59, ICD10: Z87.39 - CONSULT TO PODIATRY Follow-up pending test results or sooner as needed. Discussed treatment plan and patient voices understanding. Patient's questions answered appropriately. Medications and potential side effects were discussed and patient voices understanding. Cleo Martinez APRN.CNP This note was partially generated using [employer] voice recognition system. Note was reviewed for accuracy. There may be minor misspellings or grammar miscues with [employer] voice recognition. documented in this encounter [facility] 04-07-2023 History of Present illness Narrative Encounter Diagnosis ICD-10-CM 1. 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 Physical therapy [facility]: Call [phone] to schedule pelvic floor physical therapy. If no [facility] site is close to you or you live outside of [place], you can go to [email or web address].com to find a pelvic floor PT near you. If your PT is having you do Kegel's or strengthening exercises right away, this is likely to worsen your symptoms and we should look for a new provider knowledgeable in high-tone/tension pelvic floor dysfunction. Radiology Call [phone] to schedule your imaging. Please note for endometriosis MRIs, they will have you place ultrasound jelly into the vagina before the MRI. We use MRI to primarily to look for obvious bowel disease in patients with concerning bowel symptoms as ultrasound isn't always helpful at picking this up. Even if the MRI is negative, it doesn't mean there isn't endometriosis there, it just means it isn't large enough to picker packer (MRI only picks up disease larger than about 5mm). Most endometriosis is like someone took a salt shaker and sprinkled it inside your abdomen (ie tiny lesions). We are getting the MRI primarily to help determine if there is any disease on the bowel large enough that we would want to have our colorectal colleagues available for your surgery. So ultimately its GOOD news if the MRI is negative. Don't let negative imaging studies make you question yourself, you can still have endometriosis (or other causes for pain) with normal imaging. Endometriosis This information is from the International Pelvic Pain Society (pelvicpain.org) Endometriosis occurs when tissue that is similar to the lining of the uterus (endometrium) grows in other parts of the body and causes chronic inflammation that can cause scarring. It affects an estimated 5-10% of all women. It is most commonly found in the pelvic cavity and ovaries. Less commonly, these lesions may grow on the intestines and bladder, and rarely in the lungs or other body locations. Growths of endometriosis are almost always benign (not cancerous). Symptoms The most common symptom is pain in the pelvis, lower abdomen, or lower back. Pain is most often during the menstrual cycle, but women may have pain at other times. Not everyone with endometriosis has pain. Other symptoms include difficulty getting , pain during or after sex, pain with bowel movements or urination, constipation, diarrhea and bloating (often around the menstrual cycle). Main causes of Endometriosis No one knows the exact cause. It is highly likely that certain genes play a role, but there are many other factors. Experts do agree the hormone estrogen promotes the growth of endometriosis and treatment often focuses on lowering estrogen levels. Diagnosis The only way to diagnose endometriosis is with a surgical procedure called a laparoscopy to obtain a biopsy (sample of tissue). Laparoscopy allows surgeons to see the disease and take a biopsy that can be evaluated in a laboratory. Currently there are no blood tests or imaging tests that can make a sure endometriosis is present. However, if endometriosis is suspected based on symptoms, such as persistent painful periods and examination findings showing possible pelvic nodules, it is generally acceptable to start medical treatment without actually performing a laparoscopy. Usually surgery is recommended in patients who do not respond to medical treatment. Treatment Hormone treatment like control pills rings, implants or IUDs, progestins, and antihormones called GnRH-analogues or GnRH-antagonists are used to decrease the amount of estrogen produced by the ovaries and fat cells, leading to decreased growth and shrinkage of the endometriosis. The hormonal treatments suppress menstrual flow and help to stop new endometriosis implants from forming. The hormonal treatments are often successful for controlling pain (and bleeding) due to endometriosis. Pain medications such as Non-steroidal anti-inflammatories (NSAIDS) n are also helpful to provide relief when the symptoms are mild. Surgery is often the best choice for women with severe endometriosis or infertility who do not respond to medical treatment. Initial surgery is usually aimed at safely destroying as many of the endometriosis growths as possible. After surgery, continued suppression of menstruation is often recommended to reduce re-growth of endometriosis. In select cases a hysterectomy, (surgery to remove the uterus) can relieve symptoms. The ovaries may or may not be removed at the same time, depending on the severity of disease and the age of the patient. This surgery is typically done when a patient has failed other treatments and generally after childbearing has been complete. In women younger than 40, removal of the ovaries needs to be carefully considered and balanced against the risks of menopause. Some women with endometriosis have a more complicated type of pain. The pain is not just due to endometriosis implants but is also coming from other areas in the pelvis such as the pelvic muscles or other organs like the bladder or bowel. Dysfunction in these organs adds to chronic pain of endometriosis and can lead to pain with intercourse and to changes in bowel movements and urination. Other pain conditions involving the gut and urinary bladder, such as irritable bowel syndrome (IBS) and bladder pain syndrome (interstitial cystitis) (IC), or fibromyalgia can co-exist with endometriosis and cause pain. Therefore, in some cases, patients can have pain that originates from multiple causes not just from endometriosis. The chronic pain experienced by patients with endometriosis can lead to changes in the brain and spinal cord (the Central Nervous System) which is the primary organ responsible for pain interpretation and control. Chronic pain can change the way pain is felt such that the pain increases or may spread to other parts of the body other than the pelvis. In addition, changes at the level of the brain may affect patients in other ways leading to mood changes such as depression and anxiety, interference with sleep, daily activities or sexual function. In complex cases of endometriosis where patients are affected by chronic pain and other distressing symptoms, hormonal and / or surgical treatments may not be enough. To address all symptoms, additional therapies such as physical therapy, dietary changes and multi-disciplinary care from specialists in bladder and bowel function may be needed. The brain /pain connection also important and may be addressed with meditation, yoga, acupuncture, and/or cognitive behavioral therapy (CBT) for pain. Medications that are used to treat nerve pain or mood such as anticonvulsants or antidepressants can also helpful for management of complicated endometriosis related chronic pain. For more information on endometriosis visit: www.womenshealth.gov - Office of Women's Health, U.S. Department of Health and Human Services www.endometriosisassn.org - Endometriosis Association www.endometriosis.org -Global forum on endometriosis www.endocenter.org - Endometriosis Research Center www.endometriosis.ca - World Endometriosis Society Myofascial Pelvic Pain/Pelvic Floor Dysfunction (PFD) This information is from the International Pelvic Pain Society (pelvicpain.org) The pelvic floor is made up of the bony pelvis (hip bones) together with different layers of muscles, fascia, and ligaments. The pelvic floor acts like a hammock to support the pelvic organs including the uterus, bladder, and rectum. If the muscles become overactive, strained or uncoordinated, they may cause pain in the pelvis. This pain may lead the muscles to not contract, relax, or work together. This in turn can lead to shifting of your bony pelvis with subsequent pain in your lower back, hips, knees, or ankles. Symptoms Symptoms related to PFD may include pain of the lower abdomen and pelvic region, a sensation of vaginal heaviness or pressure, pain with vaginal penetration, and low back pain that cannot be explained by other reasons. PFD can also impact bladder and bowel function. Bladder symptoms may include urinary urgency and frequency, feeling of incomplete emptying, intermittent urinary stream or the need to strain, and urinary incontinence (leakage). Bowel symptoms may include constipation, pain with bowel movements, frequent bowel movements and fecal incontinence (leakage of stool.) Symptoms of PFD tend to develop slowly and worsen over time. Main causes of PFD While the cause of PFD is not always known contributing factors may include , vaginal delivery, pelvic trauma, pelvic surgery and obesity. PFD is also frequently found alongside pelvic diseases such as endometriosis, bladder pain syndrome, irritable bowel syndrome and vulvar pain. PFD may also arise due to repeated straining (such as with bowel movements) leading to poor coordination of the pelvic floor muscles. The pelvic floor muscles may also be involved in compensating for other musculoskeletal conditions, such as low back or hip pain. Treatment Physical Therapy is performed by a physical therapist who has been specifically trained in pelvic health. The physical therapist will perform a complete initial evaluation and, together with the patient, will establish goals and develop an individualized treatment plan. The treatment plan may include patient education, manual therapy, therapeutic exercise, postural training, breathing exercises, neuromuscular reeducation (teaching how to improve pelvic floor muscle control including relaxation, contraction, and coordination), biofeedback, and home exercise program. Modalities such as cold laser, interferential current, electrical stimulation, ultrasound, heat, and ice may also be used. Medications in the form of muscle relaxants or nerve pain medicines can be given to relax the pelvic muscles, desensitize the nervous system, and help the patient tolerate physical therapy. Trigger point injections are injections placed directly in the dysfunctional muscles to control pain, treat inflammation, and reduce spasm. Injections may include a numbing agent, a steroid, or even botulinum toxin. PFD often requires a combination of treatments in addition to physical therapy. In patients with chronic pain, other interventions such as stress control, lifestyle modification, cognitive behavioral therapy (CBT), relationship therapy, meditation, yoga, and acupuncture may be used to reduce pain and improve function. Search www.pelvicrehab.com for a physical therapist. PATIENT SURGICAL CHECKLIST - NEXT STEPS You and your provider have determined that you are a surgical candidate. Here are the next steps in the process to you being scheduled for your surgery: Your provider will submit the case to the schedulers. You should receive a call within 5 business days from our scheduling team. If you do not receive a call within 5 days - then please call [phone] Once contacted by the scheduling team, you will work with the music specialist to select a surgical OR date that works for both you and the provider The music specialist will set up all of your Pre-Op appointments, which may include all or some of the following: Pre-Op consent appointment w/ your provider Pre-Op teaching appointment - *can be done virtually Labs Admit Interview OnePACC (Anesthesia Clearance) And any other testing that the provider orders for prior to surgery You will receive a call from the surgery specialist the day prior to your surgery as to when and where to arrive on the day of your scheduled surgery QUESTIONS: If you have any clinical questions: Please contact your provider's office directly; Ines Salinas [phone] If you have any scheduling questions: Please contact the surgery scheduling office at [phone] THANK YOU for choosing the [facility]! We wish you a speedy recovery and continued good health! documented in this encounter [facility] 04-04-2023 History of Present illness Narrative Images from the original note were not included. [facility] SECTION FOR MINIMALLY INVASIVE GYNECOLOGY SURGERY OUTPATIENT VISIT DATE 04/04/2023 OUTPATIENT VISIT TYPE CONSULT REFERRING PROVIDER: Khushboo Zavala APRN.CNP PRIMARY CARE PROVIDER: Tunde Alberto MD PRIMARY COGNOS ANALYST: Khushboo Zavala APRN.CNP Consultation requested by referring provider above for an opinion regarding Khanh N Ortiz, and my final recommendations will be communicated back to the requesting physician by way of shared medical record or letter via US mail. CHIEF COMPLAINT/REASON FOR CONSULTATION heavy bleeding, dysmenorrhea, and pelvic pain HISTORY OF PRESENT ILLNESS Khanh is a 37 year old who presents for evaluation of pelvic pain, endometriosis Menarche 11. No issues prior. Painful right away. No meds. Had first ruptured cyst at age 19. Has been on and off control. Tried patch, a shot of some sort, Mirena. Body doesn't like being on hormones, feels very off. Wants to avoid hormones. Stopped at 26. Pain increasingly worsening and constant. Patient states that she felt good for about 1 year after her previous surgery ( 01/2020) done in [place] right oopherectomy, tube removed and endometriosis adhesions Laparoscopic for endometriosis, but since then slowly come back last 6 months to a year the pain has really increased along with heavier and pain Pain is lower pelvic mainly and down into her groin Wanting to know her options and if she needs to have surgery Current pain is different. Pain is predominately on left side but still gets right sided pain. Starts in LLQ and radiates into inner thigh. Feels like her left leg and buttocks will spasm.She can feel the muscles twitching. Prior to last surgery she was getting excruciating leg pain. When she is sitting she feels pressure in vagina, pelvis, and radiates to upper abdomen by the end of the day. Feels very full, belching, nauseous. Gets very bloated. Daily pain which worsens with ovulation to menses. Has about 5 days a month with less pain. Would like to pursue hysterectomy, wanted to do this with original surgery Recent pap and ultrasound flared her pain for days afterwards Operative report from 2019 surgery Scan on 03/06/2023 9:11 AM by Provider, External, PAMoiseC: BROACH SETTER Pathology 2019 Scan on 03/06/2023 9:11 AM by Provider, External, PA-C: Pathology Water Supervisor History: Menarche: 11 LMP: 03/30/2023 3 Para 1 Menses: cycles every 25-30 days and 4 days of flow. Typically pretty light. Does gets some small clots now. Improved after first surgery. Contraception: tubal sterilization Last Pap: 03/02/2023 normal HPV: 03/02/2023 negative History of abnormal pap: Yes Last mammogram: never Sexually active: Yes Patient concerns for STD exposure: No. Postcoital bleeding: No Intermenstrual spotting between periods: No Last pap: WNL 03/08/2023, HPV: 03/08/2023 History of abnormal pap: Yes Ramona: Dyspareunia: both insertional and deep Pain with intercourse: Yes. With Deep penetration-more recent. Not an issue in the past. Avoiding. Left LLQ pain after sex, hurts for a few days after No external pain Urinary habits: Voids day time every 30 minutes and 0 times at night/able to hold it. This is a change from her baseline prior to the onset of pain. Improved with prior surgery, now coming back. denies dysuria denies urinary hesitancy, more urgency endorses incomplete emptying endorses postvoid urgency denies incontinence Bowel habits: Has a bowel movement 1 times every 3 days Diarrhea: endorses tends to occur more on menses. Constipation: endorses bristol 1 Nausea: denies Painful bowel movements: denies PRIOR TREATMENTS: NSAIDS- motrin minimal Meloxicam-minimal benefit OCPs- progesterone stopped to to mood changes, on and off for 6 years Patch-6 months Progesterone IUD-2 years Laparoscopy- 2019 BS, RO, ?FOE Never PFPT Fibromyalgia Tizanidine-no benefit Gabapentin Lyrica Tramadol Cymbalta PT History PAST MEDICAL HISTORY Diagnosis Date back pain Dysthymic disorder Depression (non-psychotic)/ANXIETY? BIPOLAR Endometriosis Fibromyalgia Migraine, unspecified, with intractable migraine, so stated, without mention of status migrainosus Migraine Moderate dysplasia of cervix (POLINA II) 02/06/2005 LEEP Neuropathy in Legs Social History Tobacco Use Smoking status: Former Years: 9 Types: Cigarettes Quit date: 10/15/2007 Years since quittin.4 Smokeless tobacco: Never Vaping Use Vaping Use: Never used Substance Use Topics Alcohol use: Yes Comment: rarely Drug use: Yes Types: Marijuana Comment: occasionaly PAST SURGICAL HISTORY Procedure Laterality Date COLPOSCOPY ([facility])_*FL 06/06/2004 CONIZATION CERVIX W/WO D&C RPR ELTRD EXC 03/14/2005 moderate dysplasia DILATION & CURETTAGE DX&/THER NONOBSTETRIC Dilation & curettage DILATION & CURETTAGE DX&/THER NONOBSTETRIC Dilation & curettage PAST SURGICAL HISTORY OF 01/28/2020 right oopherectomy, tube removed and endometriosis adhesions. Laparscopic Water Supervisor history: see HPI FAMILY HISTORY Problem Relation Age of Onset Alcohol/Drug Mother ETOH Arthritis Mother Psychiatry Mother BIPOLAR Cancer Mother 51 ovarian Allergies Mother Alcohol/Drug Father ETOH Heart Father Hypertension Maternal Grandmother Aneurysm Maternal Grandmother BRAIN ANEURYSM Heart Maternal Grandfather mi Eczema Daughter Heart Maternal Uncle mi Stroke Maternal Uncle Hypertension Brother Alcohol/Drug Maternal Uncle ETOH Emphysema Maternal Aunt Psychiatry Maternal Aunt DEPRESSION Current Outpatient Medications Medication Sig MULTIVITAMIN ORAL Take by mouth once daily. glucosamine/chondr fowler A sod (OSTEO BI-FLEX ORAL) Take by mouth once daily. fluticasone (FLONASE) 50 mcg/actuation nasal spray Use 2 Sprays in each nostril once daily. Rinse mouth after use. tiZANidine (ZANAFLEX) 4 mg tablet Take 1 tablet by mouth every 8 hours as needed (muscle spasms). meloxicam (MOBIC) 15 mg tablet Take 1 tablet by mouth once daily. With food. Take as needed for pain and inflammation. albuterol HFA (VENTOLIN HFA) 90 mcg/actuation inhaler Inhale 2 Puffs as instructed every 4 hours as needed for Wheezing/Shortness of Breath. No current facility-administered medications for this visit. Allergies As of Date: 04/04/2023 Allergen Noted Reaction EFFEXOR [VENLAFAXINE HCL] 09/26/2017 Other: See Comments PROZAC [FLUOXETINE HCL] 09/26/2017 Mental Status Change AUGMENTIN [AMOXICILLIN-POT CLAVUL*05/11/2016 Rash SEASONAL ALLERGIES 07/16/2013 Other: See Comments Fully Assessed 03/06/2023 PHYSICAL EXAMINATION BP 119/77 Ht 157.5 cm (5' 2) Wt 52.6 kg (116 lb) LMP 03/30/2023 BMI 21.22 kg/m Marnie Barnhart RN was present during the examination as a propagator laborer and/nursing center tutor. General: The patient is a well-appearing female in no acute distress. Abdomen: Soft, non-distended.tender bilateral rectus, R oblique No masses or hepatosplenomegaly noted. Carnett's sign: postive Incisions: multiple lap sites Hernias: absent Back: Paraspinal tenderness: absent SI tenderness: present L Pelvic: Vulva: non-tender Normal external genitalia and hair distribution. Normal bartholin, urethra, skene's glands. No lesions. Vestibule: no lesions, non-tender Speculum exam: Deferred Bimanual exam: Urethra: non-tenderwithout masses. Bladder: non-tender Cervix: non-tender Uterus: Normal size, Retroverted, or Irregular contour posteriorly (likely fibroids vs ovary) fixed and tender Vaginal fornices: non-tender Adnexa: absent right, left with suspected adhesions Uterosacral ligaments: tender bilateral . Nodularity is present-USL vs retroverted uterine fibroids Rectovaginal septum: non-tender Rectum: Deferred as not indicated by patient symptoms. Pelvic Musculoskeletal: Vaginismus: absent Pubic symphysis: tender RIGHT LEFT Superficial perineal Tone: Normal Pain: normal Tone: Normal Pain: normal Levator ani Tone: Increased Pain: moderate Tone: Increased Pain: severe Pubococcygeus Puborectalis Iliococcygeus Obturator internus Tone: Increased Pain: mild Tone: Increased Pain: moderate Pelvic floor exam does reproduce a portion of her typical pain symptoms Skin: Normal temperature. No edema. No visible skin lesions. Psych: Alert, oriented, WNL and appropriate to content TESTING LABS: 03/02/23 Pap WNL/neg HPV IMAGING: Ultrasound 03/16/2023 IMPRESSION: Retroverted and retroflexed uterus. Uterine fibroids. Echogenic lesion within the endometrium may represent a polyp. Further evaluation recommended. Small amount of free pelvic fluid. RESULT: Uterus: -Size: 7.8 x 4.3 x 4.7 cm -Orientation: Retroverted and retroflexed -Endometrial echo complex: Evaluation of the endometrium was adequate. Solid echogenic focus within the endometrium of 0.8 x 0.4 x 0.7 cm. Possibly a polyp. The endometrial echo complex measured 0.7 cm. -Cervix: Unremarkable. -Adenomyosis assessment: There are no sonographic findings of adenomyosis. -Fibroids: Right pedunculated fibroid of 3.9 cm. Posterior subserosal fibroid of 2.2 cm Right Ovary: Surgically absent Left Ovary: 3.9 x 2.1 x 2.6 cm. Simple 2 cm cyst within it Free Fluid: Small amount of free pelvic fluid ASSESSMENT Ms. Ortiz is a 37 year old female who presents today with (N80.9) Endometriosis (primary encounter diagnosis) (R10.2) Pelvic and perineal pain (K59.02) Spastic pelvic floor syndrome (M79.18) Myofascial pain syndrome PLAN Dysmenorrhea/ Suspected Endometriosis: New problem, unstable chronic condition Discussed diagnosis and pathophysiology of endometriosis. Handout given. We reviewed management options including medical, conservative surgical, and definitive surgical management. Discussed management options-including norethindrone, Orilissa, repeat resection of endometriosis, hysterectomy plus/minus left oophorectomy. She is interested in more aggressive surgical treatment with hysterectomy and excision at this time. Discussed pros/cons to oophorectomy and recommendation for postop HRT if oophorectomy performed She will consider Orilissa in the interim if pain worsening given how far out surgery is scheduling. Given symptoms suggestive of deeply invasive disease, will send for MRI endometriosis protocol to assess for colorectal disease. Pending findings will refer patient to colorectal surgery for preoperative consultation. Order placed for: TLH, resection of endo, possible left oophorectomy. We briefly reviewed the procedure, goals and surgical risks today and patient will return for a preoperative counseling visit. Myofascial pain syndrome / Spastic Pelvic Floor Syndrome: New problem, unstable chronic condition We discussed the pathophysiology of this complex syndrome and educational handout was provided. We had a long discussion regarding physical therapy as the primary treatment. I reinforced that treatment would take at least 8 to 10 weeks and that she may feel pain is initially exacerbated. She was counseled on the importance of regular attendance prior to moving forward to more invasive therapies. A referral was placed and contact info for [facility] physical therapy as well as a website for independent PT were provided. She was instructed to contact them for an appointment. We reviewed medical therapies which may provide benefit including vaginal muscle relaxants for symptomatic relief. A trial of vaginal flexeril 5-10mg PV TID prn was prescribed. We reviewed the safe use of this medication as well as common side effects and off label use. She is to call if this does not provide relief and we can trial another alternative. We could also consider trigger point injections, prolotherapy, or Botox injections to the pelvic floor if response to PT and medications is inadequate. Endometrial polyp Likely not major contributor to pain. Preop EMB Patient verbalized understanding of the plan of care and all questions were answered to her stated satisfaction. Written and verbal health teaching given to patient, patient verbalizes understanding and agrees with treatment plan. Follow up in 4 months or prn. I spent 70 minutes in the visit, with more than 50% of the total [id number] time of the visit in counseling / coordination of care. I personally interviewed, confirmed and edited the above information if obtained by others. Cleo Garcias MD Section of Chronic Pelvic Pain Section of Minimally Invasive Gynecologic Surgery 04/04/2023 9:13 AM ORDERS PLACED . Office Visit on 04/04/23 REFER FOR ADMIT INTERVIEW MRI FEMALE PELVIS WO/W IVCON CONSULT TO MINIMALLY INVASIVE GYNECOLOGIC SURGERY CONSULT TO PHYSICAL THERAPY CONSULT TO PATIENT EDUCATION VIRTUAL CONSULT TO PACC iv contrast (will be provided with radiology test) Surgical Lubricant Jelly gel cyclobenzaprine (FLEXERIL) 5 mg tablet SURGICAL REQUEST - ELECTIVE (09/2019) documented in this encounter [facility] 03-16-2023 Miscellaneous Notes Patient notified. Munira Perez, RN Please let the patient know that her pelvic ultrasound shows a possible uterine polyp, 2 small uterine fibroids, and a simple 2 cm cyst on the left ovary. No need for further testing at this time, patient has an appointment with [facility] at the end of March. Khushboo Zavala APRN.CNP documented in this encounter [facility] 03-16-2023 History of Present illness Narrative Radiology Service Progress Note PATIENT NAME: Khanh Ortiz DATE OF SERVICE: March 16, 2023 TIME: 11:11 AM PATIENT IDENTITY VERIFICATION COMPLETED USING TWO (2) IDENTIFIERS: Name and Date of confirmed by patient verbally. FALL SCREENING: Has the patient had 2 falls in the last year or 1 fall with injury or currently using an Ambulatory Assistive Device (Walker, Cane, Wheelchair, Crutches, etc.)? No PATIENT GENDER DATA: Female. status: : No status: NO. PATIENT RELEVANT IMPLANT DATA REVIEWED: Not Applicable PATIENT PRESENTS WITH AN IMPLANTABLE OR ATTACHED FOOD PROCESSOR: No RADIOLOGY DEPARTMENT: Ultrasound PERIPHERAL IV DATA: Not applicable SIGNED BY: Nury Benson RDMS March 16, 2023 11:11 AM documented in this encounter [facility] 02-08-2022 History of Present illness Narrative Chief Complaint Patient presents with: Wellness HPI Khanh Ortiz is a 36 year old female who presents here today for a Wellness exam. Pt here today for a Wellness exam. Has not been seen in the office since 2019. Still taking care of her Mom who's battling Ovarian Cancer with metastasis. She's 61. GI/Uro - Hx of IBS. Occasional abdominal discomfort, not as bad since pelvic surgery. Denies any urinary issues. Follows with [facility]. Anxiety/Depression - Hx of marijuana use, does not have medical card. States she's doing much better, feels it was related to a lot of the medications she was on in the past. Was previously taking Cymbalta (did not tolerate), Prozac, Effexor and Ativan. Cardio - Denies any chest pain, sob or dizziness. Diet/Exercise - Denies watching diet, but feels she eats alright or exercising. She walks and moves. Migraines - Chronic migraines. Takes Flonase and OTC allergy medication which does help her. Fibro - Chronic fibro, back, neck, costochondritis and neuropathy pain (in legs). This has not improved and notes certain things have gotten worse, specifically her neck and migraines. Migraines are almost daily. Notes muscle twitching in her face. Costochondritis pain that is wrapping around her rib cage. Cyst on left wrist that causes pain to radiate up into her elbow/arm. Hurts to do dishes. This came back about a month ago. Had this occur as a teenager. Legs are still very bothersome and some days she just can't do anything. Tries to keep moving. Varying weather changes makes symptoms worse. Has stiff joints. Worried about taking too much Ibuprofen, currently using 1 tab TID, sometimes two TID. Was previously taking Tramadol but this was d/c. Pt has taken Lyrica 75 mg bid, Ibuprofen 600 mg, Tramadol 50 mg, Amitriptyline 10 mg, Tizanidine 4 mg, Baclofen 10 mg and Gabapentin 300 mg for pain control. HM - Declines Covid shot and flu shot. Declines Hep C screening. Declines depression. Past medical history, appointments, medications, allergies reviewed. Previous Medical History PAST MEDICAL HISTORY Diagnosis Date back pain Dysthymic disorder Depression (non-psychotic)/ANXIETY? BIPOLAR Fibromyalgia Migraine, unspecified, with intractable migraine, so stated, without mention of status migrainosus Migraine Moderate dysplasia of cervix (POLINA II) 2005 LEEP Neuropathy in Legs Previous Surgical History PAST SURGICAL HISTORY Procedure Laterality Date CERVIX UTERI CONIZA LP ELCTRO EXCI 03/14/05 moderate dysplasia COLPOSCOPY ([facility])_*FL 06/2004 D&C, DIAG AND/OR THERAPEUTIC Dilation & curettage D&C, DIAG AND/OR THERAPEUTIC Dilation & curettage Family History FAMILY HISTORY Problem Relation Age of Onset Alcohol/Drug Mother ETOH Arthritis Mother Psychiatry Mother BIPOLAR Cancer Mother 51 ovarian Allergies Mother Alcohol/Drug Father ETOH Heart Father Hypertension Maternal Grandmother Aneurysm Maternal Grandmother BRAIN ANEURYSM Heart Maternal Grandfather mi Eczema Daughter Heart Maternal Uncle mi Stroke Maternal Uncle Hypertension Brother Alcohol/Drug Maternal Uncle ETOH Emphysema Maternal Aunt Psychiatry Maternal Aunt DEPRESSION Patient Allergies ALLERGIES Allergen Reactions Effexor [Venlafaxin* Other: See Comments Hair started falling off Prozac [Fluoxetine * Mental Status Change Severely depressed Augmentin [Amoxicil* Rash Seasonal Allergies Other: See Comments Current Medications Current Outpatient Medications on File Prior to Visit Medication Sig fluticasone (FLONASE) 50 mcg/actuation nasal spray Use 2 Sprays in each nostril once daily. Rinse mouth after use. tiZANidine (ZANAFLEX) 4 mg tablet Take 1 tablet by mouth every 8 hours as needed (muscle spasms). cholecalciferol, Vitamin D3, (VITAMIN D3) 1,250 mcg (50,000 unit) cap capsule Take 1 capsule by mouth one time a week. (Patient not taking: Reported on 08/17/2020 ) albuterol HFA (VENTOLIN HFA) 90 mcg/actuation inhaler Inhale 2 Puffs as instructed every 4 hours as needed for Wheezing/Shortness of Breath. No current facility-administered medications on file prior to visit. Social History Social History Tobacco Use Smoking status: Former Years: .00 Types: Cigarettes Quit date: 10/15/2007 Years since quittin.3 Smokeless tobacco: Never Vaping Use Vaping Use: Never used Substance Use Topics Alcohol use: Yes Comment: rarely Drug use: Yes Types: Marijuana EXAM: BP 106/68 (BP Site: Left Arm, BP Position: Sitting, BP Cuff Size: Regular Adult) Pulse 78 Resp 16 Ht 161.3 cm (5' 3.5) Wt 54.1 kg (119 lb 3.2 oz) LMP 12/06/2019 (Exact Date) BMI 20.78 kg/m General Appearance: Well appearing, alert, in no acute distress, well-hydrated, well nourished.. Lungs: Lungs clear to auscultation. No wheezing, rhonchi, rales.. Heart: RRR without murmur, gallop, or rubs. No ectopy. Musculoskeletal: Tenderness to palpitate chest/ribs. Health Maintenance List HEPATITIS B(1 of 3 - 3-dose series) Never done COVID-19 VACCINE(1) Never done HEPATITIS C SCREENING Never done DEPRESSION ASSESSMENT Never done INFLUENZA(1) due on 10/07/2021 PAP TESTING due on 12/15/2024 HPV TESTING due on 12/15/2024 DTAP,TDAP,TD(7 - Td or Tdap) due on 08/17/2030 HIV SCREENING Completed Data reviewed None ASSESSMENT/PLAN: 1. Wellness examination - ICD9: V70.0, ICD10: Z00.00 (primary diagnosis) - Counseled on healthy diet and regular exercise 2. Cervical radiculopathy - ICD9: 723.4, ICD10: M54.12 - With increased symptoms start Mobic, Amitriptyline and Tizanidine. 3. Neck pain - ICD9: 723.1, ICD10: M54.2 - As noted above 4. Lumbar radiculopathy - ICD9: 724.4, ICD10: M54.16 Chronic low back pain - Rx Mobic, Amitriptyline and Tizanidine prn 5. Fibromyalgia - ICD9: 729.1, ICD10: M79.7 - Rx Mobic, Amitriptyline and Tizanidine 6. Neuropathy - ICD9: 355.9, ICD10: G62.9 - Start Amitriptyline 10 mg once daily 7. Costochondritis - ICD9: 733.6, ICD10: M94.0 - Take Mobic 15 mg once daily for inflammation. 8. Migraine headaches - ICD9: 346.90, ICD10: G43.909 - Neuro referral 9. Anxiety - ICD9: 300.00, ICD10: F41.9 - Stable currently without medication 10. Ganglion cyst - ICD9: 727.43, ICD10: M67.40 - Continue to monitor. Follow up prn. I agree with the Chief Complaint, ROS, and Past Histories independently gathered by the clinical administrative support assistant and the remaining scribed note accurately describes my personal service to the patient. Tunde Alberto MD The documentation for this note was completed by Jacinda Oliveros Ma acting as scribe for Tunde Alberto MD. February 08, 2022 1:44 PM. Jacinda Oliveros Ma documented in this encounter [facility] 06-10-2014 History of Past i llness Narrative Problem Noted Date Resolved Date Heavy menstrual bleeding 06/10/2014 017 Right ovarian cyst 08/31/2011 06/10/2014 Menorrhagia 08/31/2011 06/10/2014 Supervision of other high-risk (V23.89) 11/15/2007 04/12/2011 DYSPLASIA CERVICAL INTRAEPITH NEOP 01/21/2005 04/12/2011 documented as of this encounter (statuses as of 02/10/2022) [facility]2015 History of Past illness Narrative* Problem Noted Date Diagnosed Date Resolved Date Heavy menstrual bleeding 06/10/2014 Right ovarian cyst 08/31/2011 5 Menorrhagia 08/31/2011 06/10/2014 Supervision of other high-ri sk (V23.89) 11/15/2007 04/12/2011 DYSPLASIA CERVICAL INTRAEPITH NEOP 01/21/2005 04/12/2011 documented as of this encounter (statuses as of 03/16/2023) [facility]2015 History of Past illness Narrative* Problem Noted Date Diagnosed Date Resolved Date Heavy menstrual bleeding 06/10/2014 Right ovarian cyst 08/31/2011 5 Menorrhagia 08/31/2011 06/10/2014 Supervision of other high-ri sk (V23.89) 11/15/2007 04/12/2011 DYSPLASIA CERVICAL INTRAEPITH NEOP 01/21/2005 04/12/2011 documented as of this encounter (statuses as of 03/17/2023) [facility]2015 History of Past illness Narrative* Problem Noted Date Diagnosed Date Resolved Date Heavy menstrual bleeding 06/10/2014 Right ovarian cyst 08/31/2011 5 Menorrhagia 08/31/2011 06/10/2014 Supervision of other high-ri sk (V23.89) 11/15/2007 04/12/2011 DYSPLASIA CERVICAL INTRAEPITH NEOP 01/21/2005 04/12/2011 documented as of this encounter (statuses as of 04/05/2023) [facility]2015 History of Past illness Narrative* Problem Noted Date Diagnosed Date Resolved Date Heavy menstrual bleeding 06/10/2014 Right ovarian cyst 08/31/2011 5 Menorrhagia 08/31/2011 06/10/2014 Supervision of other high-ri sk (V23.89) 11/15/2007 04/12/2011 DYSPLASIA CERVICAL INTRAEPITH NEOP 01/21/2005 04/12/2011 documented as of this encounter (statuses as of 04/06/2023) [facility]2015 History of Past illness Narrative* Problem Noted Date Diagnosed Date Resolved Date Heavy menstrual bleeding 06/10/2014 Right ovarian cyst 08/31/2011 5 Menorrhagia 08/31/2011 06/10/2014 Supervision of other high-ri sk (V23.89) 11/15/2007 04/12/2011 DYSPLASIA CERVICAL INTRAEPITH NEOP 01/21/2005 04/12/2011 documented as of this encounter (statuses as of 04/07/2023) [facility]2015 History of Past illness Narrative* Problem Noted Date Diagnosed Date Resolved Date Heavy menstrual bleeding 06/10/2014 Right ovarian cyst 08/31/2011 5 Menorrhagia 08/31/2011 06/10/2014 Supervision of other high-ri sk (V23.89) 11/15/2007 04/12/2011 DYSPLASIA CERVICAL INTRAEPITH NEOP 01/21/2005 04/12/2011 documented as of this encounter (statuses as of 05/11/2023) [facility]2015 History of Past illness Narrative* Problem Noted Date Diagnosed Date Resolved Date Heavy menstrual bleeding 06/10/2014 Right ovarian cyst 08/31/2011 5 Menorrhagia 08/31/2011 06/10/2014 Supervision of other high-ri sk (V23.89) 11/15/2007 04/12/2011 DYSPLASIA CERVICAL INTRAEPITH NEOP 01/21/2005 04/12/2011 documented as of this encounter (statuses as of 05/12/2023) [facility]2015 History of Past illness Narrative* Problem Noted Date Diagnosed Date Resolved Date Heavy menstrual bleeding 06/10/2014 Right ovarian cyst 08/31/2011 5 Menorrhagia 08/31/2011 06/10/2014 Supervision of other high-ri sk (V23.89) 11/15/2007 04/12/2011 DYSPLASIA CERVICAL INTRAEPITH NEOP 01/21/2005 04/12/2011 documented as of this encounter (statuses as of 05/15/2023) [facility] [place] [facility] Diagnosis Wellness examination- Primary Cervical radiculopathy Brachial neuritis or radiculitis nos Neck pain Cervicalgia Lumbar radiculopathy Thoracic or lumbosacral neuritis or radiculitis, unspecified Fibromyalgia Mylagia and myositis, unspecified Neuropathy Mononeuritis of unspecified site Costochondritis Tietze's disease Migraine headaches Anxiety Anxiety state, unspecified Ganglion cyst Ganglion, unspecified Environmental allergies Other allergy, other than to medicinal agents [facility] Diagnosis Endometriosis Endometriosis, site unspecified [facility] Diagnosis Endometriosis- Primary Endometriosis, site unspecified Pelvic and perineal pain Unspecified symptom associated with female genital organs Spastic pelvic floor syndrome Other symptoms involving digestive system Myofascial pain syndrome Mylagia and myositis, unspecified Preop examination Preoperative examination, unspecified documented in this encounter [facility] note* Diagnosis Preoperative examination- Primary Preoperative examination, unspecified Endometriosis Endometriosis, site unspecified Pelvic and perineal pain Unspecified symptom associated with female genital organs Spastic pelvic floor syndrome Other symptoms involving digestive system Myofascial pain syndrome Mylagia and myositis, unspecified Preop examination Preoperative examination, unspecified documented in this encounter [facility] note* Diagnosis Foot pain, left- Primary Pain in limb Acute pain of left knee Acute bilateral ankle pain Discoloration of skin of foot Dyschromia, unspecified History of right foot drop Endometriosis Endometriosis, site unspecified Pelvic and perineal pain Unspecified symptom associated with female genital organs Spastic pelvic floor syndrome Other symptoms involving digestive system Myofascial pain syndrome Mylagia and myositis, unspecified Preop examination Preoperative examination, unspecified documented in this encounter [facility] note* Diagnosis Discoloration of skin of foot Dyschromia, unspecified Endometriosis Endometriosis, site unspecified Pelvic and perineal pain Unspecified symptom associated with female genital organs Spastic pelvic floor syndrome Other symptoms involving digestive system Myofascial pain syndrome Mylagia and myositis, unspecified Preop examination Preoperative examination, unspecified documented in this encounter [facility] note* Diagnosis Myalgias- Primary Endometriosis Endometriosis, site unspecified Pelvic and perineal pain Unspecified symptom associated with female genital organs Spastic pelvic floor syndrome Other symptoms involving digestive system Myofascial pain syndrome Mylagia and myositis, unspecified Preop examination Preoperative examination, unspecified documented in this encounter [facility] note* Diagnosis Acute left ankle pain- Primary Acquired pes cavus Cavus deformity of foot, acquired Right foot drop Other acquired deformity of ankle and foot Tendonitis, Achilles, left Achilles bursitis or tendinitis RSD (reflex sympathetic dystrophy) Reflex sympathetic dystrophy, unspecified Endometriosis Endometriosis, site unspecified Pelvic and perineal pain Unspecified symptom associated with female genital organs Spastic pelvic floor syndrome Other symptoms involving digestive system Myofascial pain syndrome Mylagia and myositis, unspecified Preop examination Preoperative examination, unspecified documented in this encounter [facility] note* Diagnosis Acute left ankle pain Tendonitis, Achilles, left Achilles bursitis or tendinitis Endometriosis Endometriosis, site unspecified Pelvic and perineal pain Unspecified symptom associated with female genital organs Spastic pelvic floor syndrome Other symptoms involving digestive system Myofascial pain syndrome Mylagia and myositis, unspecified Preop examination Preoperative examination, unspecified [facility] [place] Diagnosis Environmental allergies Other allergy, other than to medicinal agents documented in this encounter [facility] note* Diagnosis Acute pain of left knee Acute bilateral ankle pain Foot pain, left Pain in limb [facility] [place] [facility]* Diagnosis Encounter for gynecological examination (general) (routine) without abnormal findings- Primary Encounter for screening mammogram for breast cancer Other fatigue [facility] this [facility] [place] [facility]* Diagnosis Encounter for gynecological examination (general) (routine) without abnormal findings Encounter for screening mammogram for breast cancer documented [facility] this encounter [facility] [place] [facility]* Diagnosis Extremely dense tissue of both breasts on mammography documented in this encounter [facility] note* Diagnosis Extremely dense tissue of both breasts on mammography- Primary Extremely dense tissue of both breasts on mammography documented in this encounter [facility] note* Diagnosis Ganglion cyst of dorsum of left wrist- Primary Ganglion cyst of dorsum of left wrist documented in this encounter [facility] note* Diagnosis Ganglion cyst of dorsum of left wrist documented in this encounter [facility] for referral (narrative)* Diagnostic Procedure Only (Routine) - Closed Specialty Diagnoses / Procedures Referred By Martínez stiles Referred To Contact US IMAGING Diagnoses Endometriosis Procedures US FEMALE PELVIS TRANSVAG US TRANSVAGINAL Khushboo Zavala APRN.CNP [address] [place] [address] Us Imaging [facility] Referral ID Status Reason Start Date Expiration Date V isits Requested Visits Authorized [id number] Closed Auto-Generate d Referral 03/02/2023 03/31/2024 1 1 [facility] for referral (narrative)* Diagnostic Procedure Only (Routine) - Closed Specialty Diagnoses / Procedures Referred By Martínez stiles Referred To Contact XR IMAGING Diagnoses Acute bilateral ankle pain Foot pain, left Procedures XR FOOT GENERAL 3V AP/LAT/OBL LEFT RADEX FOOT COMPLETE MINIMUM 3 VIEWS Cleo Martinez APRN.[employer]ATCH[employer] [address] [place] [address] [place] [address] Referral ID Status Reason Start Date Expiration Date V isits Requested Visits Authorized [id number] Closed Auto-Generate d Referral 05/10/2023 06/08/2024 1 1 * Diagnostic Procedure Only (Routine) - Closed Specialty Diagnoses / Procedures Referred By Contac t Referred To Contact XR IMAGING Diagnoses Acute pain of left knee Procedures XR KNEE GENERAL 4V AP BOTH/PA BOTH/LAT/MERC LEFT RADIOLOGIC EXAM KNEE COMPLETE 4/MORE VIEWS Cleo Martinez APRN.[employer]PATCH[employer] [address] [place] [address] [place] [address] Referral ID Status Reason Start Date Expiration Date V isits Requested Visits Authorized [id number] Closed Auto-Generate d Referral 05/10/2023 06/08/2024 1 1 [facility] for visit Narrative* Diagnostic Procedure Only (Routine) - Closed Specialty Diagnoses / Procedures Referred By Contac t Referred To Contact US IMAGING Diagnoses Discoloration of skin of foot Procedures US DVT LOWER BILATERAL DUP-SCAN XTR VEINS COMPLETE BILATERAL STUDY Cleo Martinez APRN.[employer]PATCH[employer] [address] [place] [address] [place] [address] Referral ID Status Reason Start Date Expiration Date V isits Requested Visits Authorized [id number] Closed Auto-Generate d Referral 05/10/2023 06/08/2024 1 1 [facility] for visit Narrative* Diagnostic Procedure Only (Routine) - Closed Specialty Diagnoses / Procedures Referred By Contac t Referred To Contact XR IMAGING Diagnoses Acute pain of left knee Procedures XR KNEE GENERAL 4V AP BOTH/PA BOTH/LAT/MERC LEFT RADIOLOGIC EXAM KNEE COMPLETE 4/MORE VIEWS Cleo Martinez APRN.[employer]PATCH[employer] [address] [place] [address] [place] [address] Referral ID Status Reason Start Date Expiration Date V isits Requested Visits Authorized [id number] Closed Auto-Generate d Referral 05/10/2023 06/08/2024 1 1 [facility] for visit Narrative* Diagnostic Procedure Only (Routine) - Closed Specialty Diagnoses / Procedures Referred By Contac t Referred To Contact [facility] Diagnoses Encounter for gynecological examination (general) (routine) without abnormal findings Encounter for screening mammogram for breast cancer Procedures THANG SCREENING W BULL SCREENING DIGITAL BREAST TOMOSYNTHESIS BI SCREENING MAMMOGRAPHY BI 2-VIEW BREAST INC CAD Khushboo Zavala, PUBLIC HEALTH SPECIALIST.[employer]PATCH[employer] [address] [place] [address] Phone: tel: fax: [facility] [address] [place] [address] Referral ID Status Reason Start Date Expiration Date V isits Requested Visits Authorized [id number] Closed Auto-Generate d Referral 04/08/2024 05/08/2025 1 1 [facility] for visit Narrative* Diagnostic Procedure Only (Urgent) - Closed Specialty Diagnoses / Procedures Referred By Contac t Referred To Contact XR IMAGING Diagnoses Ganglion cyst of dorsum of left wrist Procedures XR WRIST GENERAL 3V PA/LAT/OBL LEFT RADEX WRIST COMPLETE MINIMUM 3 VIEWS Angy Rolon, PUBLIC HEALTH SPECIALIST.[employer]PATCH[employer] [address] [place] [address] Phone: tel: fax: [place] [address] Referral ID Status Reason Start Date Expiration Date V isits Requested Visits Authorized [id number] Closed Auto-Generate d Referral 08/15/2024 09/14/2025 1 1 [facility] Summary Purpose Family History No Family History Records FoundNo Family History Records Found Advance Directives No Advanced Directives Records FoundNo Advanced Directives Records Found Reason for Referral Specialty Diagnoses / Procedures Referred By Contac t Referred To Contact Neurology Diagnoses Migraine headaches Procedures CONSULT TO NEUROLOGY OFFICE/OUTPATIENT [facility] 60-74 MINUTES Tunde Alberto MD [address] [place] [address] Referral ID Status Reason Start Date Expiration Date Visits Requested Visits Authorized [id number] Authorized PCP Requested Referral 02/08/2022 02/08/2023 1 1 Specialty Diagnoses / Procedures Referred By Contac t Referred To Contact [facility] Diagnoses Endometriosis Pelvic and perineal pain Spastic pelvic floor syndrome Myofascial pain syndrome Procedures CONSULT TO PHYSICAL THERAPY PHYSICAL THERAPY EVALUATION HIGH COMPLEX 45 MINS Cleo Garcias MD [address] [place] [address] [facility] [place] [id number] Referral ID Status Reason Start Date Expiration Date Visits Requested Visits Authorized [id number] Pending Review Auto-Generat ed Referral 04/04/2023 04/03/2024 1 1 Specialty Diagnoses / Procedures Referred By Contac t Referred To Contact MR IMAGING Diagnoses Endometriosis Pelvic and perineal pain Procedures MRI FEMALE PELVIS WO/W IVCON MRI PELVIS W/O & W/CONTRAST MATERIAL Cleo Garcias MD [address] [place] [address] Mr Imaging [id number] Referral ID Status Reason Start Date Expiration Date Visits Requested Visits Authorized [id number] Pending Review Auto-Generat ed Referral 04/04/2023 05/03/2024 1 1 Specialty Diagnoses / Procedures Referred By Contac t Referred To Contact Podiatry Diagnoses Discoloration of skin of foot Acute bilateral ankle pain History of right foot drop Foot pain, left Procedures CONSULT TO PODIATRY OFFICE/OUTPATIENT [facility] MDM 60 MINUTES Cleo Martinez APRN.[employer] DISPATCHER [address] [place] [address] Referral ID Status Reason Start Date Expiration Date Visits Requested Visits Authorized [id number] Authorized PCP Requested Referral 05/10/2023 05/09/2024 1 1 Specialty Diagnoses / Procedures Referred By Contac t Referred To Contact [facility] Diagnoses Discoloration of skin of foot Procedures US DVT LOWER BILATERAL DUP-SCAN XTR VEINS COMPLETE BILATERAL STUDY Cleo Martinez APRN.[employer] SERVICES DISPATCHER [address] [place] [address] [place] [address] Referral ID Status Reason Start Date Expiration Date Visits Requested Visits Authorized [id number] Pending Review Auto-Generat ed Referral 05/10/2023 06/08/2024 1 1 Specialty Diagnoses / Procedures Referred By Contac t Referred To Contact XR IMAGING Diagnoses Acute pain of left knee Procedures XR KNEE GENERAL 4V AP BOTH/PA BOTH/LAT/MERC LEFT RADIOLOGIC EXAM KNEE COMPLETE 4/MORE VIEWS Cleo Martinez APRN.[employer] DISPATCHER [address] [place] [address] [place] [address] Referral ID Status Reason Start Date Expiration Date V isits Requested Visits Authorized [id number] Closed Auto-Generate d Referral 05/10/2023 06/08/2024 1 1 Specialty Diagnoses / Procedures Referred By Contac t Referred To Contact XR IMAGING Diagnoses Acute bilateral ankle pain Foot pain, left Procedures XR FOOT GENERAL 3V AP/LAT/OBL LEFT RADEX FOOT COMPLETE MINIMUM 3 VIEWS Cleo Martinez APRN.[employer] SERVICES DISPATCHER [address] [place] [address] [place] [address] Referral ID Status Reason Start Date Expiration Date V isits Requested Visits Authorized [id number] Closed Auto-Generate d Referral 05/10/2023 06/08/2024 1 1 Specialty Diagnoses / Procedures Referred By Contac t Referred To Contact [facility] [place] Diagnoses RSD (reflex sympathetic dystrophy) Procedures CONSULT TO [facility]IN) OFFICE/OUTPATIENT [facility] MDM 60 MINUTES Manjeet Maurice [address] [place] [address] Referral ID Status Reason Start Date Expiration Date Visits Requested Visits Authorized [id number] Pending Review PCP Requested Referral 05/30/2023 05/29/2024 1 1 Specialty Diagnoses / Procedures Referred By Contac t Referred To Contact [facility] Diagnoses Acute left ankle pain Tendonitis, Achilles, left Procedures CONSULT TO PHYSICAL THERAPY PHYSICAL THERAPY EVALUATION HIGH COMPLEX 45 MINS Manjeet Maurice[address] [place] [address] [facility] [place] [address] [place], [place] [address] [address] Referral ID Status Reason Start Date Expiration Date Visits Requested Visits Authorized [id number] Authorized Auto-Generat ed Referral 02/06/2023 02/06/2024 1 1 Specialty Diagnoses / Procedures Referred By Contac t Referred To Contact [facility] Diagnoses Acute left ankle pain Tendonitis, Achilles, left Procedures PT REHAB FOLLOW UP ORDER THERAPEUTIC EXERCISES RE, EA 15 MIN. Pt [facility]ly [facility] [address] [place] [address] [facility] [place] [address] [place] [address] Referral ID Status Reason Start Date Expiration Date Visits Requested Visits Authorized [id number] Pending Review PCP Requested Referral Auto-Generate d Referral 07/26/2023 10/24/2023 1 1 Additional Source Comments INFORMATION SOURCE (unrecogn ized section and content) DATE CREATED AUTHOR 08/03/2018 [facility] DATE CREATED AUTHOR AUTHOR'S ORGANIZ ATION 08/19/2024 [facility] Source Comments (unrecognize d section and content) In the event this informatio n is protected by the Federal Confidentiality of Alcohol and Drug Abuse Patient Records regulations: The Federal rules restrict any use of the information to criminally investigate or prosecute any alcohol or drug abuse patient.[facility] the event this information is protected by the Federal Confidentiality of Alcohol and Drug Abuse Patient Records regulations: The Federal rules restrict any use of the information to criminally investigate or prosecute any alcohol or drug abuse patient.[facility] the event this information is protected by the Federal Confidentiality of Alcohol and Drug Abuse Patient Records regulations: The Federal rules restrict any use of the information to criminally investigate or prosecute any alcohol or drug abuse patient.[facility] the event this information is protected by the Federal Confidentiality of Alcohol and Drug Abuse Patient Records regulations: The Federal rules restrict any use of the information to criminally investigate or prosecute any alcohol or drug abuse patient.[facility] the event this information is protected by the Federal Confidentiality of Alcohol and Drug Abuse Patient Records regulations: The Federal rules restrict any use of the information to criminally investigate or prosecute any alcohol or drug abuse patient.[facility] the event this information is protected by the Federal Confidentiality of Alcohol and Drug Abuse Patient Records regulations: The Federal rules restrict any use of the information to criminally investigate or prosecute any alcohol or drug abuse patient.[facility] the event this information is protected by the Federal Confidentiality of Alcohol and Drug Abuse Patient Records regulations: The Federal rules restrict any use of the information to criminally investigate or prosecute any alcohol or drug abuse patient.[facility] the event this information is protected by the Federal Confidentiality of Alcohol and Drug Abuse Patient Records regulations: The Federal rules restrict any use of the information to criminally investigate or prosecute any alcohol or drug abuse patient.[facility] the event this information is protected by the Federal Confidentiality of Alcohol and Drug Abuse Patient Records regulations: The Federal rules restrict any use of the information to criminally investigate or prosecute any alcohol or drug abuse patient.[facility] the event this information is protected by the Federal Confidentiality of Alcohol and Drug Abuse Patient Records regulations: The Federal rules restrict any use of the information to criminally investigate or prosecute any alcohol or drug abuse patient.[facility] the event this information is protected by the Federal Confidentiality of Alcohol and Drug Abuse Patient Records regulations: The Federal rules restrict any use of the information to criminally investigate or prosecute any alcohol or drug abuse patient.[facility] the event this information is protected by the Federal Confidentiality of Alcohol and Drug Abuse Patient Records regulations: The Federal rules restrict any use of the information to criminally investigate or prosecute any alcohol or drug abuse patient.[facility] the event this information is protected by the Federal Confidentiality of Alcohol and Drug Abuse Patient Records regulations: The Federal rules restrict any use of the information to criminally investigate or prosecute any alcohol or drug abuse patient.[facility] the event this information is protected by the Federal Confidentiality of Alcohol and Drug Abuse Patient Records regulations: The Federal rules restrict any use of the information to criminally investigate or prosecute any alcohol or drug abuse patient.[facility] the event this information is protected by the Federal Confidentiality of Alcohol and Drug Abuse Patient Records regulations: The Federal rules restrict any use of the information to criminally investigate or prosecute any alcohol or drug abuse patient.[facility] the event this information is protected by the Federal Confidentiality of Alcohol and Drug Abuse Patient Records regulations: The Federal rules restrict any use of the information to criminally investigate or prosecute any alcohol or drug abuse patient.[facility] the event this information is protected by the Federal Confidentiality of Alcohol and Drug Abuse Patient Records regulations: The Federal rules restrict any use of the information to criminally investigate or prosecute any alcohol or drug abuse patient.[facility] the event this information is protected by the Federal Confidentiality of Alcohol and Drug Abuse Patient Records regulations: The Federal rules restrict any use of the information to criminally investigate or prosecute any alcohol or drug abuse patient.[facility] the event this information is protected by the Federal Confidentiality of Alcohol and Drug Abuse Patient Records regulations: The Federal rules restrict any use of the information to criminally investigate or prosecute any alcohol or drug abuse patient.[facility] HospitalIn the event this information is protected by the Federal Confidentiality of Alcohol and Drug Abuse Patient Records regulations: The Federal rules restrict any use of the information to criminally investigate or prosecute any alcohol or drug abuse patient.[facility] HospitalIn the event this information is protected by the Federal Confidentiality of Alcohol and Drug Abuse Patient Records regulations: The Federal rules restrict any use of the information to criminally investigate or prosecute any alcohol or drug abuse patient.[facility] HospitalIn the event this information is protected by the Federal Confidentiality of Alcohol and Drug Abuse Patient Records regulations: The Federal rules restrict any use of the information to criminally investigate or prosecute any alcohol or drug abuse patient.[facility] Reason for Visit (unrecogniz ed section and content) Reason Comments Wellness Reason Comments Results Reason Comments Radiology US Specialty Diagnoses / Procedures Referred By Contac t Referred To Contact US IMAGING Diagnoses Endometriosis Procedures US FEMALE PELVIS TRANSVAG US TRANSVAGINAL Khushboo Zavala, IMELDA.[employer] SERVICES DISPATCHER [address] [place] [address] [place] [address] Referral ID Status Reason Start Date Expiration Date V isits Requested Visits Authorized [id number] Closed Auto-Generate d Referral 03/02/2023 03/31/2024 1 1 Reason Comments New Patient Specialty Diagnoses / Procedures Referred By Contac t Referred To Contact Diagnoses Endometriosis Procedures CONSULT TO MINIMALLY INVASIVE GYNECOLOGIC SURGERY OFFICE/OUTPATIENT NEW HIGH MDM 60 MINUTES Khushboo Zavala, IMELDA.[employer] SERVICES DISPATCHER [address] [place] [address] Referral ID Status Reason Start Date Expiration Date V isits Requested Visits Authorized [id number] Closed PCP Requested Referral Auto-Generated Referral 03/02/2023 03/01/2024 1 1 Reason Comments Schedule Surgery Reason Comments Acute Visit Left leg Reason Comments Results Xrays/US DVT Reason Comments New Pain Numbness Swelling Specialty Diagnoses / Procedures Referred By Contac t Referred To Contact Podiatry Diagnoses Discoloration of skin of foot Acute bilateral ankle pain History of right foot drop Foot pain, left Procedures CONSULT TO PODIATRY OFFICE/OUTPATIENT NEW [facility] MDM 60 MINUTES Cleo Martinez, PUBLIC HEALTH SPECIALIST.[employer] SERVICES DISPATCHER [address] [place] [address] Referral ID Status Reason Start Date Expiration Date V isits Requested Visits Authorized [id number] Closed PCP Requested Referral 05/10/2023 05/09/2024 1 1 Reason Comments PT Eval Specialty Diagnoses / Procedures Referred By Contac t Referred To Contact PHYSICAL THERAPY Diagnoses Acute left ankle pain Tendonitis, Achilles, left Procedures CONSULT TO PHYSICAL THERAPY PHYSICAL THERAPY EVALUATION HIGH COMPLEX 45 MINS Manjeet Maurice [address] [place] [address] Pt [facility]ly [facility] [address] [place] [address] Referral ID Status Reason Start Date Expiration Date V isits Requested Visits Authorized [id number] Closed Auto-Generate d Referral 02/06/2023 02/06/2024 1 1 Reason Onset Date Comments Refill Request 10/14/2023 Reason Comments Well Woman Reason Onset Date Comments Results 04/09/2024 Reason Comments Radiology Mammogram Specialty Diagnoses / Procedures Referred By Contac t Referred To Contact [facility] Diagnoses Extremely dense tissue of both breasts on mammography Procedures US BREAST COMPLETE BILATERAL US BREAST UNI REAL TIME WITH IMAGE COMPLETE Khushboo Zavala APRN.[employer] SERVICES DISPATCHER [address] [place] [address] Phone: tel: fax: [facility] [address] [place] [address] Referral ID Status Reason Start Date Expiration Date V isits Requested Visits Authorized [id number] Closed Auto-Generate d Referral 05/13/2024 06/12/2025 1 1 Reason Comments Wrist Pain Left wrist Care Teams (unrecognized sec tion and content) Tight Cooper Relationship Specialty Start Date End Date Tunde Alberto MD [address] [place] [address] PCP - General Family Medicine 03/01/10 Tight Cooper Relationship Specialty Start Date End Date Tunde Alberto MD [address] [place] [address] PCP - General Family Medicine 03/01/10 Tight Cooper Relationship Specialty Start Date End Date Tunde Alberto MD [address] [facility] [place] [address] PCP - General Family Medicine 03/01/10 Tight Cooper Relationship Specialty Start Date End Date Tunde Alberto MD [address] [place] [address] PCP - General Family Medicine 03/01/10 Tight Cooper Relationship Specialty Start Date End Date Tunde Alberto MD [address] [place] [address] PCP - General Family Medicine 03/01/10 Tight Cooper Relationship Specialty Start Date End Date Tunde Alberto MD [address] [place] [address] PCP - General Family Medicine 03/01/10 Tight Cooper Relationship Specialty Start Date End Date Tunde Alberto MD [address] [place] [address] PCP - General Family Medicine 03/01/10 Tight Cooper Relationship Specialty Start Date End Date Tunde Alberto MD [address] [place] [address] PCP - General Family Medicine 03/01/10 Tight Cooper Relationship Specialty Start Date End Date Tunde Alberto MD [address] [place] [address] PCP - General Family Medicine 03/01/10 Tight Cooper Relationship Specialty Start Date End Date Tunde Alberto MD [address] [place] [address] PCP - General Family Medicine 03/01/10 Tight Cooper Relationship Specialty Start Date End Date Tunde Alberto MD [address] [place] [address] PCP - General Family Medicine 03/01/10 Tight Cooper Relationship Specialty Start Date End Date Tunde Alberto MD [address] [place] [address] PCP - General Family Medicine 03/01/10 Tight Cooper Relationship Specialty Start Date End Date Tunde Alberto MD [address] [place] [address] PCP - General Family Medicine 03/01/10 Tight Cooper Relationship Specialty Start Date End Date Tunde Alberto MD [address] [place] [address] PCP - General Family Medicine 03/01/10 Tight Cooper Relationship Specialty Start Date End Date Tunde Alberto MD [address] [place] [address] PCP - General Family Medicine 03/01/10 Cleo Martinez, PUBLIC HEALTH SPECIALIST.[employer]IL WELL SERVICES DISPATCHER [address] [place] [address] Home Sales Service Professional Family Medicine 01/14/24 Alexis Gibson APRN.[employer]IL WELL SERVICES DISPATCHER [address] [place] [address] Home Sales Service Professional Family Medicine 01/23/24 Tight Cooper Relationship Specialty Start Date End Date Tunde Alberto MD [address] [place] [address] PCP - General Family Medicine 03/01/10 Cleo Martinez APRN.[employer]IL WELL SERVICES DISPATCHER [address] [place] [address] Home Sales Service Professional Family Medicine 01/14/24 Alexis Gibson APRN.[employer]IL WELL SERVICES DISPATCHER [address] [place] [address] Home Sales Service Professional Family Medicine 01/23/24 Tight Cooper Relationship Specialty Start Date End Date Tunde Alberto MD [address] [place] [address] PCP - General Family Medicine 03/01/10 Cleo Martinez APRN.OIL WELL SERVICES DISPATCHER [address] [place] [address] Home Sales Service Professional Family Medicine 01/14/24 Alexis Gibson APRN.OIL WELL SERVICES DISPATCHER [address] [place] [address] Home Sales Service Professional Family Medicine 01/23/24 Tight Cooper Relationship Specialty Start Date End Date Tunde Alberto MD [address] [place] [address] PCP - General Family Medicine 03/01/10 Cleo Martinez APRN.OIL WELL SERVICES DISPATCHER [address] [place] [address] Home Sales Service Professional Family Medicine 01/14/24 Alexis Gibson APRN.OIL WELL SERVICES DISPATCHER [address] [place] [address] Home Sales Service Professional Family Medicine 01/23/24 Tight Cooper Relationship Specialty Start Date End Date Tunde Alberto MD [address] [facility], [place] [address] PCP - General Family Medicine 03/01/10 Cleo Martinez APRN.[employer] WELL SERVICES DISPATCHER [address] [place] [address] Home Sales Service Professional Family Medicine 01/14/24 06/19/24 Alexis Gibson APRN.[employer]IL WELL SERVICES DISPATCHER [address] [place] [address] Home Sales Service Professional Family Medicine 01/23/24 Tight Cooper Relationship Specialty Start Date End Date Tunde Alberto MD [address] [place] [address] PCP - General Family Medicine 03/01/10 Cleo Martinez APRN.[employer]IL WELL SERVICES DISPATCHER [address] [place] [address] Home Sales Service Professional Family Medicine 01/14/24 06/19/24 Alexis Gibson APRN.OIL WELL SERVICES DISPATCHER [address] [place] [address] Home Sales Service Professional Family [facility] 01/23/24 Tight Cooper Relationship Specialty Start Date End Date Tunde Alberto MD [address] [place] [address] PCP - General Family Medicine 03/01/10 Alexis Gibson APRN.OIL WELL SERVICES DISPATCHER [address] [place] [address] Home Sales Service Professional Family Medicine 01/23/24 Tight Cooper Relationship Specialty Start Date End Date Tunde Alberto MD [address] [place] [address] PCP - General Family Medicine 03/01/10 Alexis Gibson APRN.[facility] [address] [place] [address] Home Sales Service Professional Family [facility] 01/23/24 FOR RECORDS PERTAINING TO PATIENTS WHO ARE OR HAVE BEEN ENROLLED IN A CHEMICAL DEPENDENCY/SUBSTANCEABUSE PROGRAM, SOME INFORMATION MAY BE OMITTED. This clinical summary was aggregated from multiple sources. Caution should be exercised in using it in the provision of clinical care. This summary normalizes information from multiple sources, and as a consequence, information in this document may materially change the coding, format and clinical context of patient data. In addition, data may be omitted in some cases. CLINICAL DECISIONS SHOULD BE BASED ON THE PRIMARY CLINICAL RECORDS. [email or web address] [facility]. provides no warranty or guarantee of the accuracy or completeness of information in this document.
== END | disposition home or self-care (01) ==
LOC: RAD 13:19
PROVIDERS: PCP Family Medicine; Referring Provider Chiropractor; Visit Provider Chiropractor
DX: S13.4XXA Sprain of ligaments of cervical spine, initial encounter (principal); S33.5XXA Sprain of ligaments of lumbar spine, initial encounter
CPT/HCPCS: 72050; 72110